=== PATIENT | male | born 1945 | race Caucasian/White ===

== ENCOUNTER 2016-07-13 13:51 | Emergency (ER) | payer MEDICARE ==
[2016-07-13] MEDS ORDERED: Sodium Chloride 0.9% 10 ML Syringe FLUSH PRN (14:28)
[2016-07-13] MEDS ORDERED: HYDROmorphone 0.5 MG/0.5 ML Syringe IVPUSH ONE (14:30)
[2016-07-13] MEDS ORDERED: Ondansetron 4 MG/2 ML SDV IVPUSH ONE (14:30)
--- NOTE | 2016-07-13 14:33 | EDM.PDOC ---
ED HPI GI/ABDOMINAL - General Chief Complaint: Abdominal Pain Stated Complaint: PAIN AND SOB Time Seen by Provider: 07/13/16 14:28 Source: Reports: Patient, Family, RN notes reviewed History Limitations: Reports: No limitations - History of Present Illness INITIAL COMMENTS - FREE TEXT/NARRATIVE: 71-year-old gentleman presents emergency department for a complaint of epigastric pain, he states had this pain for 2 days and has progressively gotten worse he had one episode of vomiting today pain is so intense that he does feel short of breath, has a known history of coronary artery disease with stents - Related Data Allergies/ADRs: Allergies Allergy/AdvReac Type Severity Reaction Status Date / Time No Known Allergies Allergy Verified 07/13/16 14:09 Home Meds: Home Meds Aspirin [Ecotrin] 81 mg PO DAILY 11/27/14 [History] Omeprazole 20 mg PO DAILY 11/27/14 [History] Simvastatin [Zocor] 20 mg PO BEDTIME 11/27/14 [History] Ticagrelor [Brilinta] 90 mg PO BID 10/24/15 [History] Past Medical History Cardiovascular History: Reports: CAD, High cholesterol, Stents Gastrointestinal History: Reports: Other (see below) Other Gastrointestinal History: hernia Musculoskeletal History: Reports: Fracture - Infectious Disease History Infectious Disease History: Reports: Chicken pox Other Infectious Disease History: unknown - Past Surgical History Cardiovascular Surgical History: Reports: Coronary artery stent Social & Family History - Tobacco Use Smoking Status *Q: Current Every Day Smoker Years of Tobacco use: 50 Packs/Tins Daily: 0.7 - Caffeine Use Caffeine Use: Reports: Coffee - Recreational Drug Use Recreational Drug Use: No ED ROS GENERAL - Review of Systems Review Of Systems: See Below Constitutional: Denies: diaphoresis HEENT: Reports: No symptoms Respiratory: Reports: shortness of breath. Denies: cough, sputum Cardiovascular: Reports: No symptoms GI/Abdominal: Reports: Abdominal pain, Nausea, Vomiting. Denies: Constipation, Diarrhea : Reports: no symptoms Musculoskeletal: Reports: no symptoms Skin: Reports: no symptoms Neurological: Reports: no symptoms ED EXAM, GI/ABD - Physical Exam Exam: See Below Text/Narrative:: General: male, moderate discomfort secondary to abdominal pain, alert and oriented x3 HEENT: head is atraumatic normocephalic, eyes pupils equal round reactive to light and accommodation sclera clear no conjunctivitis appreciated. Ears blocked by cerumen bilaterally. Nose no septal deviation, nares are clear, no blood present. Mouth mucosa is moist and pink no erythema or exudate noted in soft palate, tongue is midline uvula is midline, dentition is4. Neck: Supple no thyromegaly no tracheal deviation. Nodes: Cervical nodes subclavicular nodes nontender no palpable lymphadenopathy noted. Lungs: breath sounds are distant I don't appreciate any evident tissues noises CV: distant soundsRegular rate and rhythm S1 and S2 appreciated no murmurs rubs or gallops noted. Abdomen: Soft, tender to palpation epigastric region, no palpable masses or organomegaly appreciated, no distention no guarding bowel sounds are present, ]. Neuro: Cranial nerves II through XII grossly intact Skin: Warm and dry, intact Extremities: No lower extremity edema appreciated, Course - Vital Signs Last Recorded V/S: Last Vital Signs Temp 97.4 F 07/13/16 14:16 Pulse 98 07/13/16 17:32 Resp 16 07/13/16 17:32 BP 149/92 H 07/13/16 17:32 Pulse Ox 92 L 07/13/16 17:32 - Orders/Labs/Meds Orders: Active Orders 24 hr Category Date Time Status Cardiac Monitoring [RC] .As Directed Care 07/13/16 14:28 Active EKG Documentation Completion [RC] ASDIRECTED Care 07/13/16 14:29 Active Peripheral IV Care [RC] . DIRECTED Care 07/13/16 14:29 Active Abdomen Pelvis wo Cont [CT] Stat Exams 07/13/16 15:59 Taken Chest 1V Frontal [CR] Stat Exams 07/13/16 14:29 Taken Sodium Chloride 0.9% [Saline Flush] Med 07/13/16 14:28 Active 10 ml FLUSH ASDIRECTED PRN Peripheral IV Insertion Adult [OM.PC] Stat Oth 07/13/16 14:28 Ordered Saline Lock Insert [OM.PC] Stat Oth 07/13/16 14:28 Ordered EKG 12 Lead [EK] Stat Ther 07/13/16 14:29 Ordered Medication Orders Sodium Chloride (Saline Flush) 10 ml FLUSH ASDIRECTED PRN PRN Reason: Keep Vein Open Last Admin: 07/13/16 14:46 Dose: 10 ml Labs: Laboratory Tests 03/04/1907/13/16 07/13/16 Range/Units 14:39 14:39 14:39 WBC 10.3 (4.5-11.0) K/uL RBC 5.60 (4.30-5.90) M/uL Hgb 16.6 H (12.0-15.0) g/dL Hct 47.9 (40.0-54.0) % MCV 86 (80-98) fL MCH 30 (27-31) pg MCHC 35 (32-36) % Plt Count 235 (150-400) K/uL Neut % (Auto) 70 H (36-66) % Lymph % (Auto) 12 L (24-44) % Pershing % (Auto) 16 H (2-6) % Eos % (Auto) 1 L (2-4) % Baso % (Auto) 1 (0-1) % Sodium 134 L (140-148) mmol/L Potassium 4.6 (3.6-5.2) mmol/L Chloride 100 (100-108) mmol/L Carbon Dioxide 25 (21-32) mmol/L Anion Gap 13.6 (5.0-14.0) mmol/L BUN 22 H (7-18) mg/dL Creatinine 1.5 H (0.8-1.3) mg/dL Est Cr Clr Drug Dosing 37.50 mL/min Estimated GFR (MDRD) 46 L (>60) Glucose 95 (74-106) mg/dL Lactic Acid 1.5 (0.4-2.0) mmol/L Calcium 8.8 (8.5-10.1) mg/dL Total Bilirubin 0.5 (0.2-1.0) mg/dL AST 34 (15-37) U/L ALT 41 (12-78) U/L Alkaline Phosphatase 82 (46-116) U/L Troponin I < 0.017 (0.000-0.056) ng/mL Total Protein 7.8 (6.4-8.2) g/dL Albumin 3.7 (3.4-5.0) g/dL Globulin 4.1 H (2.3-3.5) g/dL Albumin/Globulin Ratio 0.9 L (1.2-2.2) Lipase 146 (73-393) U/L Urine Color Urine Appearance Urine pH (4.5-8.0) Ur Specific [place] (1.008-1.030) Urine Protein (NEGATIVE) mg/dL Urine Glucose (UA) (NEGATIVE) mg/dL Urine Ketones (NEGATIVE) mg/dL Urine Occult Blood (NEGATIVE) Urine Nitrite (NEGAITVE) Urine Bilirubin (NEGATIVE) Urine Urobilinogen (NORMAL) mg/dL Ur Leukocyte Esterase (NEGATIVE) Urine RBC (0-5) Urine WBC (0-5) Ur Epithelial Cells Amorphous Sediment Urine Bacteria Urine Mucus Urine Other 07/13/16 Range/Units 15:19 WBC (4.5-11.0) K/uL RBC (4.30-5.90) M/uL Hgb (12.0-15.0) g/dL Hct (40.0-54.0) % MCV (80-98) fL MCH (27-31) pg MCHC (32-36) % Plt Count (150-400) K/uL Neut % (Auto) (36-66) % Lymph % (Auto) (24-44) % Pershing % (Auto) (2-6) % Eos % (Auto) (2-4) % Baso % (Auto) (0-1) % Sodium (140-148) mmol/L Potassium (3.6-5.2) mmol/L Chloride (100-108) mmol/L Carbon Dioxide (21-32) mmol/L Anion Gap (5.0-14.0) mmol/L BUN (7-18) mg/dL Creatinine (0.8-1.3) mg/dL Est Cr Clr Drug Dosing mL/min Estimated GFR (MDRD) (>60) Glucose (74-106) mg/dL Lactic Acid (0.4-2.0) mmol/L Calcium (8.5-10.1) mg/dL Total Bilirubin (0.2-1.0) mg/dL AST (15-37) U/L ALT (12-78) U/L Alkaline Phosphatase (46-116) U/L Troponin I (0.000-0.056) ng/mL Total Protein (6.4-8.2) g/dL Albumin (3.4-5.0) g/dL Globulin (2.3-3.5) g/dL Albumin/Globulin Ratio (1.2-2.2) Lipase (73-393) U/L Urine Color Yellow Urine Appearance Slightly cloudy Urine pH 5.0 (4.5-8.0) Ur Specific [place] 1.025 (1.008-1.030) Urine Protein Negative (NEGATIVE) mg/dL Urine Glucose (UA) Normal (NEGATIVE) mg/dL Urine Ketones Negative (NEGATIVE) mg/dL Urine Occult Blood Negative (NEGATIVE) Urine Nitrite Negative (NEGAITVE) Urine Bilirubin Small (NEGATIVE) Urine Urobilinogen 1 (NORMAL) mg/dL Ur Leukocyte Esterase Negative (NEGATIVE) Urine RBC 0-5 (0-5) Urine WBC 0-5 (0-5) Ur Epithelial Cells Rare Amorphous Sediment Not seen Urine Bacteria Not seen Urine Mucus Moderate Urine Other Meds: Medications Generic Name Dose Route Start Last Admin Trade Name Freq PRN Reason Stop Dose Admin Sodium Chloride 10 ml 07/13/16 14:28 07/13/16 14:46 Saline Flush FLUSH 10 ml ASDIRECTED PRN Administration Keep Vein Open Discontinued Medications Generic Name Dose Route Start Last Admin Trade Name Freq PRN Reason Stop Dose Admin Al Hydroxide/Mg Hydroxide 15 0 ml 07/13/16 17:04 07/13/16 17:16 ml/ Lidocaine HCl 15 ml PO 07/13/16 17:05 15 ml ONETIME ONE Administration Hydromorphone HCl 0.5 mg 07/13/16 14:30 07/13/16 14:45 Dilaudid IVPUSH 07/13/16 14:31 0.5 mg ONETIME ONE Administration Ondansetron HCl 4 mg 07/13/16 14:30 07/13/16 14:43 Zofran IVPUSH 07/13/16 14:31 4 mg ONETIME ONE Administration Departure - Departure Time of Disposition: 17:42 Disposition: Home, Self-Care 01 Condition: good Clinical Impression: Epigastric pain Forms: ED Department Discharge Additional Instructions: increase your omeprazole from 20 mg once a day to 40 mg once a day, Please followup with your primary care provider in 3-5 days if not better, please call return to the emergency department with worsening of symptoms. - My Orders Last 24 Hours: My Active Orders 07/13/16 14:28 Cardiac Monitoring [RC] .As Directed Sodium Chloride 0.9% [Saline Flush] 10 ml FLUSH ASDIRECTED PRN Peripheral IV Insertion Adult [OM.PC] Stat Saline Lock Insert [OM.PC] Stat 07/13/16 14:29 EKG Documentation Completion [RC] ASDIRECTED Peripheral IV Care [RC] . DIRECTED Chest 1V Frontal [CR] Stat EKG 12 Lead [EK] Stat 07/13/16 15:59 Abdomen Pelvis wo Cont [CT] Stat - Assessment/Plan Last 24 Hours: My Active Orders 07/13/16 14:28 Cardiac Monitoring [RC] .As Directed Sodium Chloride 0.9% [Saline Flush] 10 ml FLUSH ASDIRECTED PRN Peripheral IV Insertion Adult [OM.PC] Stat Saline Lock Insert [OM.PC] Stat 07/13/16 14:29 EKG Documentation Completion [RC] ASDIRECTED Peripheral IV Care [RC] . DIRECTED Chest 1V Frontal [CR] Stat EKG 12 Lead [EK] Stat 07/13/16 15:59 Abdomen Pelvis wo Cont [CT] Stat Plan: Assessment Acuity = acute Site and laterality = epigastric pain Etiology = suspicious for exacerbation of gastroesophageal reflux disease Manifestations = none Location of injury = home Lab values = CBC unremarkable, sodium of 134 versus hyponatremia creatinine elevated at 1.5 consistent with chronic renal failure stage G. IIIB, troponin negative EKG demonstrates a right bundle branch block which is not new chest x- ray I did review films myself I cannot appreciate any acute process, the official read from radiology is pending Plan he became pain-free in the emergency department he was given a GI cocktail for comfort plan is to increase his omeprazole to 40 mg once a day for the next week or so to see if there's any improvement he is to follow up with primary care in 3-5 days for evaluation Patient was in agreement with the plan all questions were answered, they were instructed to return to the emergency department or call for worsening symptoms. This note was dictated using [employer] voice recognition software please call with any questions.
[2016-07-13] MEDS ORDERED: Alum Hydrox/Mag Hydrox/Simeth 15 ML, Lidocaine 2% 15 ML PO ONE ×2 (17:04)
[2016-07-13 17:33] VITALS: BP 149/92
--- NOTE | 2016-07-14 10:58 | CR ---
Heart size within normal limits. No focal consolidation. Faint nodular density left upper lobe perip herally and left lung base. Recommend noncontrast chest CT follow-up.
== END 2016-07-13 18:02 | disposition home or self-care (01) ==
LOC: JP.ED 13:51
DX: R10.13 Epigastric pain (principal); I25.10 Atherosclerotic heart disease of native coronary artery without angina pectoris; E78.00 Pure hypercholesterolemia, unspecified; Z95.5 Presence of coronary angioplasty implant and graft; F17.200 Nicotine dependence, unspecified, uncomplicated; Z79.82 Long term (current) use of aspirin; Z79.899 Other long term (current) drug therapy
CPT/HCPCS: 36415; 71010; 74176; 80053; 81001; 83605; 83690; 84484; 85025; 93005; A9270; J1170; J2405; J7050; 93010; 96374; 96375; 99284; 99285-25

== ENCOUNTER 2017-10-19 07:28 | Inpatient (IN) | payer MEDICARE ==
[~2017-10-19 07:28] MED LIST: Bupivacaine 0.5%/EPINEPHrine 1:200,000 50 ML MDV ONE; Dexamethasone 4 MG/ML SDV ONE; Glycopyrrolate 0.2 MG/ML 5 ML MDV ONE; Neostigmine Methylsulfate 1 MG/ML 5 ML Syringe ONE; Ondansetron 4 MG/2 ML SDV ONE; Propofol 200 MG/20 ML SDV ONE; Rocuronium 50 MG/5 ML Vial ONE; Succinylcholine 200 MG/10 ML MDV ONE; fentaNYL 250 MCG/5 ML SDV ONE
[2017-10-19] MEDS ORDERED: ceFAZolin 2 GM in Sodium Chloride 0.9% 50 ML IV ONE (08:00)
[2017-10-19] MEDS ORDERED: Albuterol/Ipratropium 3.0-0.5 MG/3 ML Neb Soln NEB ONE (08:00)
[2017-10-19] MEDS ORDERED: Ketamine 500 MG/5 ML MDV IV SCH (08:00)
[2017-10-19] MEDS ORDERED: Acetaminophen 500 MG Tab PO ONE (08:00)
[2017-10-19] MEDS ORDERED: ceFAZolin 2 GM in Premix Bag 1 BAG IV ONE (08:00)
[2017-10-19] MEDS: Dextrose 5%-Lactated Ringers 1,000 ML IV SCH ×3 (08:03→23:23)
[2017-10-19] MEDS ORDERED: Phenylephrine 1% 10 MG/ML SDV ONE (09:44)
[2017-10-19] MEDS ORDERED: Lidocaine 4% Top Soln LTA 4 ML SYRINGE ONE (09:48)
--- NOTE | 2017-10-19 10:10 | CR ---
CHEST: 2 view CLINICAL HISTORY:Preop COMPARISON:2017 FINDINGS: Heart and pulmonary vascularity are normal. No infiltrate effusion or pneumothorax is seen . Lungs are hyperaerated.. IMPRESSION: No acute cardiopulmonary process Hyperaeration
[2017-10-19] MEDS ORDERED: Ondansetron 4 MG/2 ML SDV IVPUSH PRN (11:31)
[2017-10-19] MEDS ORDERED: Albuterol/Ipratropium 3.0-0.5 MG/3 ML Neb Soln INH PRN (12:00)
[2017-10-19] MEDS: Albuterol/Ipratropium 3.0-0.5 MG/3 ML Neb Soln INH SCH ×2 (14:50→20:10)
[2017-10-19] MEDS: ceFAZolin 2 GM in Premix Bag 1 BAG IV SCH ×2 (15:49→23:31)
[2017-10-19] MEDS: Acetaminophen/HYDROcodone 325-5 MG Tab PO PRN ×2 (17:20→23:26)
[2017-10-19] MEDS: Ticagrelor 90 MG Tab PO SCH (20:10)
[2017-10-19] MEDS ORDERED: Tamsulosin 0.4 MG Cap.ER PO SCH (21:00)
[2017-10-20] MEDS: Acetaminophen/HYDROcodone 325-5 MG Tab PO PRN ×2 (04:30→10:36)
[2017-10-20 07:17] VITALS: BP 134/61
[2017-10-20] MEDS: Albuterol/Ipratropium 3.0-0.5 MG/3 ML Neb Soln INH SCH (07:29)
[2017-10-20] MEDS ORDERED: Pantoprazole 40 MG Tab.CR PO SCH (07:30)
[2017-10-20] MEDS: ceFAZolin 2 GM in Premix Bag 1 BAG IV SCH (08:14)
[2017-10-20] MEDS: Ticagrelor 90 MG Tab PO SCH (08:15)
--- NOTE | 2017-10-20 08:46 | DISCH ---
FINAL DIAGNOSES: 1. Incarcerated left inguinal hernia. 2. Large left hydrocele. 3. Left ilioinguinal and iliohypogastric nerves, at risk for scar entrapment. SECONDARY DIAGNOSES: 1. Hyperlipidemia. 2. History of coronary artery disease. 3. Gastroesophageal reflux disease. 4. Chronic obstructive pulmonary disease. OPERATIVE PROCEDURES: Done on 10/19/2017, left inguinal exploration with; 1. Repair of incarcerated left inguinal hernia with mesh. 2. Left hydrocelectomy. 3. Division of left ilioinguinal and iliohypogastric nerves. SUMMARY AND HOSPITAL COURSE: This is a 72-year-old male presenting with a very large left inguinal hernia. On the day of admission, the patient underwent a general anesthetic and repair of the hernia. A large amount of the scrotal mass turned out to be a hydrocele, did have incarcerated inguinal hernia as well which was repaired with mesh-plug technique. The ilioinguinal and iliohypogastric nerves passed directly over the area of the mesh repair and were therefore divided to minimize chance of postoperative neuropathic pain. The patient did have a chest x-ray done preoperatively, which showed hyperaeration consistent with his emphysema-dominant COPD, but otherwise was unremarkable. Postoperatively, he has done well with no respiratory problems noted. He will be sent home with [place] 5/325 1 or 2 tabs q.4 hours p.r.n. pain, #40. he can take ibuprofen 400 to 600 mg q.i.d. p.r.n. either in addition to or instead of the Ty Ty. We will send him home with a dose of milk of magnesia. He does have a TATY drain in place, which he will be instructed to empty 3 times a day. He will be following up with Dr. Caicedo at [facility] on 10/28/2017.
[2017-10-20] MEDS ORDERED: Ticagrelor 90 MG Tab PO SCH (09:00)
--- NOTE | 2017-10-20 10:13 | OR ---
DATE OF PROCEDURE: 10/19/2017 PREOPERATIVE DIAGNOSES: Incarcerated left inguinal hernia with associated large scrotal mass. POSTOPERATIVE DIAGNOSES: 1. Incarcerated left inguinal hernia. 2. Large left hydrocele. 3. Left ilioinguinal nerve and iliohypogastric nerves at risk for scar entrapment. OPERATIVE PROCEDURES: Left inguinal exploration with; 1. Repair of incarcerated left inguinal hernia with mesh, (54470). 2. Left hydrocelectomy, (28092). 3. Division of left ilioinguinal nerve, (39036). 4. Division of left iliohypogastric nerve, (54478). ANESTHESIA: General. ASSISTANTS: 1. Guillermina Hernandez PA-C. 2. VICENTE Jimenez. INDICATION FOR PROCEDURE: This is a 72-year-old presenting with a large incarcerated left inguinal hernia with in it being a quite large scrotal mass associated with this. The plan is to proceed with inguinal exploration with repair of the hernia and reduction of the contents as needed. The patient may have quite a bit in the way of viscera put back into the abdomen. Given this, a general anesthetic will be planned. Potential risks including bleeding, infection, injury to underlying viscera, problems with the hernia recurring or the mesh becoming infected were all reviewed along with the possibility of cardiopulmonary, septic, or hemorrhagic complications leading to , and the patient wishes to proceed. DETAILS OF PROCEDURE: The patient was taken to the operating room and placed in a supine position. After general endotracheal anesthesia was induced, the abdomen and groin areas were prepped and draped. A standard left inguinal incision was made and carried down through the skin and subcutaneous tissue, and through the external oblique aponeurosis in line with the external ring. Sub aponeurosis flaps were then raised superiorly and inferiorly, and the cord structures were mobilized upward. This allowed dissection down toward the area of the large scrotal mass. This was predominantly a hydrocele, and this was then sequentially freed up and excised, except for the portion of the sac more or less attached to the testicle. The blood supply and the testicle were otherwise intact at the completion of dissection. The free edge of the hydrocele sac was then suture ligated with a running locked 3-0 Vicryl stitch. The patient was also noted to have some incarcerated fatty-type tissue within what was otherwise a direct inguinal hernia. The transversalis fascia overlying this was incised and this then allowed reduction of the hernia. A large mesh plug was then selected and placed into the defect and affixed to the Jayesh ligament inferiorly with titanium tacking screws, and then to the underside of the conjoined tendon medially, superiorly, and laterally with horizontal mattress sutures of 0 Vicryl stitch. At that point, the flat portion of mesh system was placed around the cord structures. Upon placing this, it became evident that the mesh will be overlying both the left ilioinguinal and iliohypogastric nerves, and these were therefore divided to limit the possibility of postoperative neuropathic pain. The mesh was then affixed there with some 3-0 Vicryl stitch and the cord structures were placed overlying this plane. The external oblique aponeurosis was then approximated with a 3-0 Vicryl stitch as was the Sean's fascia, and the skin closed with alden. The area was anesthetized with 0.5% Marcaine. The patient was taken to the recovery room in a satisfactory condition. One additional item in this case was a 7-[place] Marcell-Dimas drain was placed lateral to the main incision and taken down into the scrotum to prevent postoperative fluid collection in that area. The drain was fixed to the skin with some 3-0 Vicryl stitch. The patient was taken to the recovery room in satisfactory condition. Physician computer lab assistant, Guillermina Hernandez, played an essential role in assisting in this case, helping to position the patient, retract structures as needed, as well as suturing and cutting sutures when indicated. Her presence improved patient safety and decreased the operative time. Ronaldo Caicedo MD Job #: [id number]
== END 2017-10-20 10:45 | disposition home or self-care (01) | DRG 352 ==
LOC: JP.MS 07:28 → JP.SDS 07:29 → JP.2SS 10:30 → EDSTATUS 11:15
PROVIDERS: ADMIT Surgery; ATTEND Surgery
PROC: 0YU60JZ Supplement Left Inguinal Region with Synthetic Substitute, Open Approach (ICD-10-PCS; principal; 2017-10-19)
PROC: 0VB70ZZ Excision of Left Tunica Vaginalis, Open Approach (ICD-10-PCS; 2017-10-19)
PROC: 018B0ZZ Division of Lumbar Nerve, Open Approach (ICD-10-PCS; 2017-10-19)
PROC: 018B0ZZ Division of Lumbar Nerve, Open Approach (ICD-10-PCS; 2017-10-19)
PROC: 0Y9600Z Drainage of Left Inguinal Region with Drainage Device, Open Approach (ICD-10-PCS; 2017-10-19)
PROC: 3E0M05Z Introduction of Adhesion Barrier into Peritoneal Cavity, Open Approach (ICD-10-PCS; 2017-10-19)
DX: K40.30 Unilateral inguinal hernia, with obstruction, without gangrene, not specified as recurrent (principal); N43.2 Other hydrocele; G57.82 Other specified mononeuropathies of left lower limb; F17.210 Nicotine dependence, cigarettes, uncomplicated; K21.9 Gastro-esophageal reflux disease without esophagitis; E78.5 Hyperlipidemia, unspecified; I25.10 Atherosclerotic heart disease of native coronary artery without angina pectoris; R20.0 Anesthesia of skin; Z79.82 Long term (current) use of aspirin; J44.9 Chronic obstructive pulmonary disease, unspecified
CPT/HCPCS: 36415; 51798; 71046; 71046-26; 80053; 83880; 85027; 86803; 87350; 87449; 94640; 94762; A9270-GY; C1781; J0330; J0690; J1100; J2370; J2405; J2704; J2710; J3010; J7042; J7050; J7620

== ENCOUNTER 2017-10-25 09:17 | Emergency (ER) | payer MEDICARE ==
[2017-10-25 09:31] VITALS: BP 172/75
--- NOTE | 2017-10-25 09:55 | EDM.PDOC ---
ED HPI GENERAL MEDICAL PROBLEM - General Chief Complaint: Abdominal Pain Stated Complaint: PAIN/ISSUES WITH SURGICAL SITE Time Seen by Provider: 10/25/17 09:40 Source of Information: Reports: Patient, Family History Limitations: Reports: No Limitations - History of Present Illness INITIAL COMMENTS - FREE TEXT/NARRATIVE: 72-year-old male who underwent a left hernia repair 5 days ago still has his TATY drain in and was doing well but over the past 12 hours has developed increased swelling and discomfort. No fevers or chills. No nausea or vomiting. Onset: Unknown/Unsure Location: Reports: Abdomen, Other (Groin, scrotum) Severity: Moderate Associated Symptoms: Denies: Fever/Chills, Loss of Appetite, Malaise, Nausea/ Vomiting, Shortness of Breath, Weakness Left Lower Pelvic Pain Score (Numeric/FACES): 10 - Related Data Allergies Allergy/AdvReac Type Severity Reaction Status Date / Time No Known Allergies Allergy Verified 10/25/17 09:46 Home Meds: Home Meds Aspirin [Ecotrin] 81 mg PO DAILY 11/27/14 [History] Omeprazole 40 mg PO DAILY 11/27/14 [History] Simvastatin [Zocor] 20 mg PO BEDTIME 11/27/14 [History] Ticagrelor [Brilinta] 90 mg PO BID 10/24/15 [History] Tamsulosin HCl [Flomax] 0.4 mg PO DAILY 10/15/17 [History] Acetaminophen/HYDROcodone [[place] 325-5 MG] 1 - 2 tab PO Q4H PRN #40 tab [Rx] Ibuprofen [Motrin] 400 - 600 mg PO QID PRN 30 Days tab 10/20/17 [Rx] Magnesium Hydroxide [Milk of Magnesia] 15 ml PO DAILY PRN #2 ml 10/20/17 [Rx] Past Medical History HEENT History: Reports: Impaired Vision Other HEENT History: wears glasses Cardiovascular History: Reports: CAD, High Cholesterol, SOB on Exertion, Stents Respiratory History: Reports: COPD, SOB Gastrointestinal History: Reports: GERD, Other (See Below) Other Gastrointestinal History: inguinal hernia Genitourinary History: Reports: Prostate Disorder Musculoskeletal History: Reports: Arthritis, Fracture - Infectious Disease History Infectious Disease History: Reports: Chicken Pox Other Infectious Disease History: unknown - Past Surgical History HEENT Surgical History: Reports: None Cardiovascular Surgical History: Reports: Coronary Artery Stent Respiratory Surgical History: Reports: None GI Surgical History: Reports: Hernia, Inguinal Male Surgical History: Reports: None Musculoskeletal Surgical History: Reports: None Dermatological Surgical History: Reports: None Social & Family History - Family History Cardiac: Reports: [place] GI: Reports: Other (See Below) Other GI Family History: mother had stomach tumor-unknown if cancerous Musculoskeletal: Reports: Arthritis - Caffeine Use Caffeine Use: Reports: Coffee ED ROS GENERAL - Review of Systems Review Of Systems: See Below Constitutional: Denies: Fever, Chills Respiratory: Denies: Shortness of Breath GI/Abdominal: Reports: Abdominal Pain. Denies: Diarrhea, Nausea, Vomiting : Reports: Pain (Discomfort in the left scrotum with swelling). Denies: Dysuria Skin: Reports: Bruising (Some bruising around the surgical site especially laterally) ED EXAM, GI/ABD - Physical Exam Exam: See Below Exam Limited By: No Limitations General Appearance: Alert, No Apparent Distress (Looks uncomfortable but not distressed) Eyes: Bilateral: Normal Appearance Respiratory/Chest: No Respiratory Distress GI/Abdominal Exam: Normal Bowel Sounds, Other (Patient has dressings over the lower abdomen with a TATY into the surgical site. There is no distention and bowel sounds are present. The TATY drain has clear serosanguineous fluid as expected.) (Male) Exam: Other (There is fullness, firmness and tenderness in the left inguinal area into the left scrotum) Course - Vital Signs Last Recorded V/S: Last Vital Signs Temp 95.8 F 10/25/17 09:37 Pulse 103 H 10/25/17 09:37 Resp 18 10/25/17 09:37 BP 172/75 H 10/25/17 09:37 Pulse Ox 96 10/25/17 09:37 - Orders/Labs/Meds Orders: Active Orders 24 hr Category Date Time Status Abdomen Pelvis wo Cont [CT] Stat Exams 10/25/17 09:44 Taken - Re-Assessments/Exams Free Text/Narrative Re-Assessment/Exam: 10/25/17 09:55 After discussing his case with surgery, a CT of the abdomen and pelvis without contrast was obtained to assess a possible reoccurrence of the hernia. 10/25/17 11:04 CT scan shows relatively normal postoperative changes, patient is fairly comfortable unless the area is palpated. He had a bowel movement this morning and he is passing urine normally and is comfortable with waiting until tomorrow to get a postsurgical check. I called the surgical department, Guillermina Hernandez, and informed the patient to return at 9:30 AM for a surgical postoperative check. Departure - Departure Time of Disposition: 11:27 Disposition: Home, Self-Care 01 Condition: Good Clinical Impression: Inguinal hernia Qualifiers: Obstruction and gangrene presence: without obstruction or gangrene Laterality: unilateral Recurrence: non-recurrent Qualified Code(s): K40.90 - Unilateral inguinal hernia, without obstruction or gangrene, not specified as recurrent - Discharge Information Instructions: Inguinal Hernia, Adult, [id number] Referrals: Casey Rajput MD [Primary Care Provider] - Forms: ED Department Discharge Care Plan Goals: Continue your current medications, and return to the clinic tomorrow morning at 9:30 to have a surgical recheck. Return to ER today or tonight if worsening such as fever or intractable pain, nausea vomiting or other concerns. - My Orders Last 24 Hours: My Active Orders 10/25/17 09:44 Abdomen Pelvis wo Cont [CT] Stat - Assessment/Plan Last 24 Hours: My Active Orders 10/25/17 09:44 Abdomen Pelvis wo Cont [CT] Stat
== END 2017-10-25 11:27 | disposition home or self-care (01) ==
LOC: JP.ED 09:17
DX: K40.90 Unilateral inguinal hernia, without obstruction or gangrene, not specified as recurrent (principal); E78.00 Pure hypercholesterolemia, unspecified; Z79.82 Long term (current) use of aspirin; Z79.899 Other long term (current) drug therapy
CPT/HCPCS: 74176; 99284-25

== ENCOUNTER 2019-01-16 18:08 | Emergency (ER) | payer MEDICAID, MEDICARE ==
--- NOTE | 2019-01-16 18:52 | EDM.PDOC ---
ED HPI GENERAL MEDICAL PROBLEM - General Chief Complaint: Respiratory Problem Stated Complaint: SOB, CHEST PAIN, ABD PAIN Time Seen by Provider: 01/16/19 18:55 Source of Information: Reports: Patient, Family, Old Records, RN History Limitations: Reports: Other (patient is a poor historian) - History of Present Illness INITIAL COMMENTS - FREE TEXT/NARRATIVE: 74 yo male here with multiple vague complaints. Lives with a son that he apparently has been complaining to and the son calleld the daughter who then brought him here to the ER. Lives with the son who does not drive. Dr. Rajput is his primary and he has not seen him for a few months. Complains of his breathing being a little worse than normal, especially with exertion. Has intermittent fleeting chest pains all across his chest. Has L sided abdominal pains. Normal bowel movements. No fever. Reportedly has an elevated PSA and a Cologuard test is pending. Not sleeping well. Onset: Gradual Duration: Week(s):, Chronic, Waxing/Waning Location: Reports: Chest, Abdomen Quality: Reports: Dull Severity: Mild Improves with: Reports: Other (unknown) Worsens with: Reports: Other (? time) Associated Symptoms: Reports: Chest Pain (fleeting, no pain now), Shortness of Breath (chronic, worse with exertion. ). Denies: Confusion, Cough, Diaphoresis , Fever/Chills, Headaches, Loss of Appetite, Malaise, Nausea/Vomiting, Rash, Seizure, Syncope, Weakness Treatments [employer]: Reports: Other (see below) (none) Left Lower Abdominal Pain Score (Numeric/FACES): 7 - Related Data Allergies Allergy/AdvReac Type Severity Reaction Status Date / Time No Known Allergies Allergy Verified 01/16/19 18:43 Home Meds: Home Meds Aspirin [Ecotrin] 81 mg PO DAILY 11/27/14 [History] Omeprazole 40 mg PO DAILY 11/27/14 [History] Simvastatin [Zocor] 20 mg PO BEDTIME 11/27/14 [History] Ticagrelor [Brilinta] 90 mg PO BID 10/24/15 [History] Past Medical History HEENT History: Reports: Impaired Vision Other HEENT History: wears glasses Cardiovascular History: Reports: CAD, High Cholesterol, SOB on Exertion, Stents Respiratory History: Reports: COPD, SOB Gastrointestinal History: Reports: GERD, Other (See Below) Other Gastrointestinal History: inguinal hernia Genitourinary History: Reports: Prostate Disorder Musculoskeletal History: Reports: Arthritis, Fracture - Infectious Disease History Infectious Disease History: Reports: Chicken Pox Other Infectious Disease History: unknown - Past Surgical History HEENT Surgical History: Reports: None Cardiovascular Surgical History: Reports: Coronary Artery Stent GI Surgical History: Reports: Hernia, Inguinal Dermatological Surgical History: Reports: None Social & Family History - Family History Cardiac: Reports: [place] GI: Reports: Other (See Below) Other GI Family History: mother had stomach tumor-unknown if cancerous Musculoskeletal: Reports: Arthritis - Caffeine Use Caffeine Use: Reports: Coffee ED ROS GENERAL - Review of Systems Review Of Systems: See Below Constitutional: Reports: Weight Loss. Denies: Fever HEENT: Reports: No Symptoms Respiratory: Reports: Shortness of Breath (chronic, has known COPD). Denies: Wheezing, Pleuritic Chest Pain, Cough, Sputum, Hemoptysis Cardiovascular: Reports: Chest Pain (intermittent, fleeting), Dyspnea on Exertion. Denies: Orthopnea Endocrine: Reports: No Symptoms GI/Abdominal: Reports: Abdominal Pain (L sided, several days duration. ). Denies: Constipation, Diarrhea, Decreased Appetite, Distension, Flatus, Hematemesis, Hematochezia, Melena, Vomiting : Reports: No Symptoms Musculoskeletal: Reports: No Symptoms Skin: Reports: No Symptoms Neurological: Reports: No Symptoms Psychiatric: Reports: Depression (cries often) ED EXAM, GENERAL - Physical Exam Exam: See Below Exam Limited By: No Limitations General Appearance: Alert, WD/WN, No Apparent Distress, Thin Eye Exam: Bilateral Eye: Normal Inspection Ears: Normal External Exam, Normal Canal, Hearing Grossly Normal Ear Exam: Bilateral Ear: Auricle Normal, Canal Normal Nose: Normal Inspection, Normal Mucosa, No Blood Throat/Mouth: Normal Inspection, Normal Lips, Normal Oropharynx, Normal Voice, No Airway Compromise Head: Atraumatic, Normocephalic Neck: Normal Inspection Respiratory/Chest: No Respiratory Distress, Lungs Clear, No Accessory Muscle Use , Decreased Breath Sounds Cardiovascular: Regular Rate, Rhythm, No Edema GI/Abdominal: Normal Bowel Sounds, Soft, Non-Tender, No Distention Back Exam: Normal Inspection. No: CVA Tenderness (R), CVA Tenderness (L) Extremities: Normal Inspection, Normal Range of Motion, Non-Tender, No Pedal Edema Neurological: Alert, Oriented, CN II-XII Intact, Normal Cognition, No Motor/ Sensory Deficits Psychiatric: Normal Affect, Normal Mood Skin Exam: Warm, Dry, Intact, Normal Color, No Rash EKG INTERPRETATION EKG Date: 01/16/19 Time: 18:25 Rhythm: Other (atrial paced) Rate (Beats/Min): 101 [place]: Normal P-Wave: Present QRS: RBBB ST-T: Normal QT: Normal Comparison: No Change Course - Vital Signs Last Recorded V/S: Last Vital Signs Temp 37.0 C 01/16/19 18:44 Pulse 100 01/16/19 19:36 Resp 21 H 01/16/19 19:36 BP 156/102 H 01/16/19 19:36 Pulse Ox 94 L 01/16/19 19:36 - Orders/Labs/Meds Orders: Active Orders 24 hr Category Date Time Status Cardiac Monitoring [RC] .As Directed Care 01/16/19 18:11 Active EKG Documentation Completion [RC] ASDIRECTED Care 01/16/19 18:10 Active RT Aerosol Therapy [RC] ASDIRECTED Care 01/16/19 20:36 Active EKG 12 Lead [EK] Routine Ther 01/16/19 18:10 Ordered Labs: Laboratory Tests 01/16/19 01/16/19 01/16/19 Range/Units 19:15 19:15 19:22 WBC 8.4 (4.5-11.0) K/uL RBC 5.15 (4.30-5.90) M/uL Hgb 14.0 (12.0-15.0) g/dL Hct 43.0 (40.0-54.0) % MCV 84 (80-98) fL MCH 27 (27-31) pg MCHC 33 (32-36) % Plt Count 287 (150-400) K/uL Sodium 135 L (140-148) mmol/L Potassium 4.3 (3.6-5.2) mmol/L Chloride 100 (100-108) mmol/L Carbon Dioxide 27 (21-32) mmol/L Anion Gap 12.3 (5.0-14.0) mmol/L BUN 16 (7-18) mg/dL Creatinine 1.1 (0.8-1.3) mg/dL Est Cr Clr Drug Dosing 45.25 mL/min Estimated GFR (MDRD) > 60 (>60) Glucose 81 (74-106) mg/dL Calcium 9.0 (8.5-10.1) mg/dL Total Bilirubin 0.4 (0.2-1.0) mg/dL AST 19 (15-37) U/L ALT 18 (12-78) U/L Alkaline Phosphatase 121 H (46-116) U/L Troponin I < 0.017 (0.000-0.056) ng/mL Total Protein 7.3 (6.4-8.2) g/dL Albumin 3.1 L (3.4-5.0) g/dL Globulin 4.2 H (2.3-3.5) g/dL Albumin/Globulin Ratio 0.7 L (1.2-2.2) Urine Color Yellow (YELLOW) Urine Appearance Clear (CLEAR) Urine pH 5.5 (5.0-8.0) Ur Specific [place] 1.025 (1.008-1.030) Urine Protein Trace H (NEGATIVE) mg/dL Urine Glucose (UA) Negative (NEGATIVE) mg/dL Urine Ketones Negative (NEGATIVE) mg/dL Urine Occult Blood Trace-intact H (NEGATIVE) Urine Nitrite Negative (NEGATIVE) Urine Bilirubin Small H (NEGATIVE) Urine Urobilinogen 1.0 (0.2-1.0) EU/dL Ur Leukocyte Esterase Negative (NEGATIVE) Urine RBC 0-5 (0-5) Urine WBC 0-5 (0-5) Ur Epithelial Cells Rare Amorphous Sediment Not seen Urine Bacteria Few Urine Mucus Moderate Meds: Medications Discontinued Medications Generic Name Dose Route Start Last Admin Trade Name Freq PRN Reason Stop Dose Admin Albuterol/Ipratropium 3 ml 01/16/19 20:36 01/16/19 20:42 Duoneb 3.0-0.5 Mg/3 Ml NEB 01/16/19 20:37 3 ml ONETIME ONE Administration Prednisone 10 mg 01/16/19 21:01 01/16/19 21:08 Prednisone PO 01/16/19 21:02 10 mg ONETIME ONE Administration - Radiology Interpretation Free Text/Narrative:: Flat/upright abdom X-rays-neg - Re-Assessments/Exams Free Text/Narrative Re-Assessment/Exam: 01/16/19 21:02 Patient reports slight subjective improvement after the Duoneb, lungs reveal some faint wheezing after the neb that was not appreciated before the neb. Departure - Departure Time of Disposition: 21:40 Disposition: Home, Self-Care 01 Condition: Fair Clinical Impression: COPD exacerbation, Anxiety - Discharge Information *PRESCRIPTION DRUG MONITORING PROGRAM REVIEWED*: No *COPY OF PRESCRIPTION DRUG MONITORING REPORT IN PATIENT SHERIDAN: No Instructions: Chronic Obstructive Pulmonary Disease, [id number] Referrals: Casey Rajput MD [Primary Care Provider] - Forms: ED Department Discharge Additional Instructions: Use the prednisone and albuterol inhaler as directed. Continue your other medicines as before. Recheck with Dr. Rajput later in the week. Return here if a lot worse. - My Orders Last 24 Hours: My Active Orders 01/16/19 18:10 EKG Documentation Completion [RC] ASDIRECTED EKG 12 Lead [EK] Routine 01/16/19 18:11 Cardiac Monitoring [RC] .As Directed 01/16/19 20:36 RT Aerosol Therapy [RC] ASDIRECTED - Assessment/Plan Last 24 Hours: My Active Orders 01/16/19 18:10 EKG Documentation Completion [RC] ASDIRECTED EKG 12 Lead [EK] Routine 01/16/19 18:11 Cardiac Monitoring [RC] .As Directed 01/16/19 20:36 RT Aerosol Therapy [RC] ASDIRECTED
[2019-01-16 19:37] VITALS: BP 156/102; PULSE 100
--- NOTE | 2019-01-16 19:45 | CRLCR ---
INDICATION: Left-sided abdominal pain. TECHNIQUE: Single-view abdomen and pelvis. FINDINGS: Postsurgical changes left pelvis with surgical coils. Moderate lucency along the lateral abdomen bilaterally extending along the liver and spleen. I cannot exclude the possibility of free intraperitoneal air. Suggest obtaining in upright view of the abdomen or if clinically desired CT. Moderate amounts of stool in the colon. Gas distention of the colon and small bowel within normal limits. Findings were called to the referring provider at 7:42 p.m. on 01/16/2019. 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 Remainder negative. Dictated by Brittany Baxter MD @ Jan 16 2019 7:44PM Signed by Dr. Brittany Baxter @ Jan 16 2019 7:45PM
[2019-01-16] MEDS ORDERED: Albuterol/Ipratropium 3.0-0.5 MG/3 ML Neb Soln NEB ONE (20:36)
[2019-01-16] MEDS ORDERED: predniSONE 10 MG Tab PO ONE (21:01)
--- NOTE | 2019-01-16 21:26 | CRLCR ---
INDICATION: Abnormality on the previous film earlier tonight possibly suggesting free intraperitoneal air. TECHNIQUE: Single upright view of the abdomen and pelvis. COMPARISON: Films earlier today. FINDINGS: The lucency seen along the lateral aspect of the abdomen bilaterally is less apparent. There is no free intraperitoneal air beneath the hemidiaphragms. The lucency along the lateral aspect of the abdomen is of uncertain etiology. If there is clinical concern for an acute abdomen, consider CT. Bowel gas pattern otherwise unremarkable with mild gas distention of the stomach, small bowel, and colon. Left-sided coronary artery stent. Remainder negative. Dictated by Toney Hamlin MD @ Jan 16 2019 9:21PM Signed by Dr. Toney Hamlin @ Jan 16 2019 9:24PM
== END 2019-01-16 22:16 | disposition home or self-care (01) ==
LOC: JP.ED 18:08
DX: J44.9 Chronic obstructive pulmonary disease, unspecified (principal); F41.9 Anxiety disorder, unspecified; I25.10 Atherosclerotic heart disease of native coronary artery without angina pectoris; E78.00 Pure hypercholesterolemia, unspecified; K21.9 Gastro-esophageal reflux disease without esophagitis; M19.90 Unspecified osteoarthritis, unspecified site; Z79.82 Long term (current) use of aspirin; Z79.899 Other long term (current) drug therapy
CPT/HCPCS: 36415; 74018; 80053; 81001; 84484; 85027; 93005; 94640; 99285; A9270; J7620-GY

== ENCOUNTER 2019-01-31 14:37 | Emergency (ER) | payer MEDICAID, MEDICARE ==
[2019-01-31] MEDS ORDERED: Albuterol/Ipratropium 3.0-0.5 MG/3 ML Neb Soln NEB ONE (14:52)
[2019-01-31] MEDS ORDERED: methylPREDNISolone Sodium Succinate 125 MG/2 ML SDV IVPUSH ONE (14:52)
[2019-01-31] MEDS ORDERED: Sodium Chloride 0.9% 10 ML Syringe FLUSH PRN (14:53)
--- NOTE | 2019-01-31 15:01 | EDM.PDOC ---
ED HPI GENERAL MEDICAL PROBLEM - General Chief Complaint: General Stated Complaint: SOB,ABDOMINAL PAIN Time Seen by Provider: 01/31/19 14:45 Source of Information: Reports: Patient, Family, Old Records, RN History Limitations: Reports: No Limitations - History of Present Illness INITIAL COMMENTS - FREE TEXT/NARRATIVE: 74 yo male here with SOB. Has known COPD. Was here a couple weeks ago and got prednisone and apparently did well while on this. He followed up in the clinic toward the end of his prednisone and it was felt that he was doing well and didn 't need any other tx. He does say he has not smoked for a week. No fever. No pain. Says he wants a nebulizer as the albuterol MDI "doesn't work for him". Last used the MDI this morning. On demonstration for me he actually exhaled into the inhaler as he discharged it while it was fully in his mouth with his lips tightly wrapped around the device. Onset: Gradual Duration: Day(s):, Getting Worse Location: Reports: Chest Quality: Reports: Other (no pain) Severity: Moderate Improves with: Reports: Rest Worsens with: Reports: Other (exertion) Associated Symptoms: Reports: Cough, Shortness of Breath. Denies: Chest Pain, Diaphoresis, Fever/Chills Treatments [employer] TECH: Reports: Other (see below) (none) - Related Data Allergies Allergy/AdvReac Type Severity Reaction Status Date / Time No Known Allergies Allergy Verified 01/16/19 18:43 Home Meds: Home Meds Aspirin [Ecotrin] 81 mg PO DAILY 11/27/14 [History] Omeprazole 40 mg PO DAILY 11/27/14 [History] Simvastatin [Zocor] 20 mg PO BEDTIME 11/27/14 [History] Ticagrelor [Brilinta] 90 mg PO BID 10/24/15 [History] Past Medical History HEENT History: Reports: Impaired Vision Other HEENT History: wears glasses Cardiovascular History: Reports: CAD, High Cholesterol, SOB on Exertion, Stents Respiratory History: Reports: COPD, SOB Gastrointestinal History: Reports: GERD, Other (See Below) Other Gastrointestinal History: inguinal hernia Genitourinary History: Reports: Prostate Disorder Musculoskeletal History: Reports: Arthritis, Fracture - Infectious Disease History Infectious Disease History: Reports: Chicken Pox Other Infectious Disease History: unknown - Past Surgical History HEENT Surgical History: Reports: None Cardiovascular Surgical History: Reports: Coronary Artery Stent GI Surgical History: Reports: Hernia, Inguinal Dermatological Surgical History: Reports: None Social & Family History - Family History Cardiac: Reports: [place] GI: Reports: Other (See Below) Other GI Family History: mother had stomach tumor-unknown if cancerous Musculoskeletal: Reports: Arthritis - Caffeine Use Caffeine Use: Reports: Coffee ED ROS GENERAL - Review of Systems Review Of Systems: See Below Constitutional: Reports: No Symptoms HEENT: Reports: No Symptoms Respiratory: Reports: Shortness of Breath, Cough. Denies: Wheezing, Pleuritic Chest Pain, Sputum, Hemoptysis Cardiovascular: Reports: No Symptoms Endocrine: Reports: No Symptoms GI/Abdominal: Reports: No Symptoms : Reports: No Symptoms Musculoskeletal: Reports: No Symptoms Skin: Reports: No Symptoms Neurological: Reports: No Symptoms ED EXAM, GENERAL - Physical Exam Exam: See Below Exam Limited By: No Limitations General Appearance: Alert, WD/WN, Mild Distress Eye Exam: Bilateral Eye: Normal Inspection Ears: Normal External Exam, Normal Canal, Hearing Grossly Normal Ear Exam: Bilateral Ear: Auricle Normal, Canal Normal Nose: Normal Inspection, No Blood Throat/Mouth: Normal Inspection, Normal Lips, Normal Oropharynx, Normal Voice, No Airway Compromise Head: Atraumatic, Normocephalic Neck: Normal Inspection Respiratory/Chest: No Respiratory Distress, Decreased Breath Sounds, Accessory Muscle Use (with some tachypnea) Cardiovascular: Regular Rate, Rhythm, No Edema Back Exam: Normal Inspection Extremities: Normal Inspection, Normal Range of Motion, Non-Tender, No Pedal Edema Neurological: Alert, Oriented, CN II-XII Intact, Normal Cognition, No Motor/ Sensory Deficits Psychiatric: Normal Affect, Normal Mood Skin Exam: Warm, Dry, Intact, Normal Color, No Rash Course - Vital Signs Text/Narrative:: accepted by [facility] @ [facility], Dr. Chaparro. Last Recorded V/S: Last Vital Signs Temp 36.9 C 01/31/19 15:05 Pulse 136 H 01/31/19 16:05 Resp 18 01/31/19 16:05 BP 138/55 L 01/31/19 16:05 Pulse Ox 91 L 01/31/19 16:05 - Orders/Labs/Meds Orders: Active Orders 24 hr Category Date Time Status RT Aerosol Therapy [RC] ASDIRECTED Care 01/31/19 14:52 Active RT Aerosol Therapy [RC] ASDIRECTED Care 01/31/19 15:26 Active UA W/MICROSCOPIC [URIN] Stat Lab 01/31/19 15:46 Ordered Sodium Chloride 0.9% [Saline Flush] Med 01/31/19 14:53 Active 10 ml FLUSH ASDIRECTED PRN Saline Lock Insert [OM.PC] Routine Oth 01/31/19 14:53 Ordered Medication Orders Sodium Chloride (Saline Flush) 10 ml FLUSH ASDIRECTED PRN PRN Reason: Keep Vein Open Last Admin: 01/31/19 15:01 Dose: 10 ml Labs: Laboratory Tests 01/31/19 01/31/19 Range/Units 15:02 15:02 WBC 20.9 H (4.5-11.0) K/uL RBC 4.74 (4.30-5.90) M/uL Hgb 12.7 (12.0-15.0) g/dL Hct 39.0 L (40.0-54.0) % MCV 82 (80-98) fL MCH 27 (27-31) pg MCHC 33 (32-36) % Plt Count 505 H (150-400) K/uL Sodium 132 L (140-148) mmol/L Potassium 4.3 (3.6-5.2) mmol/L Chloride 98 L (100-108) mmol/L Carbon Dioxide 25 (21-32) mmol/L Anion Gap 13.3 (5.0-14.0) mmol/L BUN 18 (7-18) mg/dL Creatinine 1.0 (0.8-1.3) mg/dL Est Cr Clr Drug Dosing 49.23 mL/min Estimated GFR (MDRD) > 60 (>60) Glucose 109 H (74-106) mg/dL Calcium 9.3 (8.5-10.1) mg/dL Meds: Medications Generic Name Dose Route Start Last Admin Trade Name Freq PRN Reason Stop Dose Admin Sodium Chloride 10 ml 01/31/19 14:53 01/31/19 15:01 Saline Flush FLUSH 10 ml ASDIRECTED PRN Administration Keep Vein Open Discontinued Medications Generic Name Dose Route Start Last Admin Trade Name Freq PRN Reason Stop Dose Admin Albuterol 2.5 mg 01/31/19 15:25 01/31/19 15:35 Proventil Neb Soln NEB 01/31/19 15:26 2.5 mg ONETIME ONE Administration Albuterol/Ipratropium 3 ml 01/31/19 14:52 01/31/19 15:00 Duoneb 3.0-0.5 Mg/3 Ml NEB 01/31/19 14:53 3 ml ONETIME ONE Administration Azithromycin 500 mg 01/31/19 15:45 01/31/19 16:36 Zithromax PO 01/31/19 15:46 500 mg NOW STA Administration Hydromorphone HCl 0.5 mg 01/31/19 16:32 01/31/19 16:38 Dilaudid IVPUSH 01/31/19 16:33 0.5 mg ONETIME ONE Administration Ceftriaxone Sodium 1 gm/ 50 mls @ 100 mls/hr 01/31/19 15:46 01/31/19 16:36 Sodium Chloride IV 01/31/19 16:15 100 mls/hr ONETIME ONE Administration Methylprednisolone Sodium Succinate 125 mg 01/31/19 14:52 01/31/19 15:01 Solu-Medrol IVPUSH 01/31/19 14:53 125 mg ONETIME ONE Administration - Radiology Interpretation Free Text/Narrative:: CXR-L pneumonia Departure - Departure Time of Disposition: 17:00 Disposition: DC/Tfer to Acute Hospital 02 Condition: Poor Clinical Impression: Pneumonia Qualifiers: Pneumonia type: due to unspecified organism Laterality: left Lung location: upper lobe of lung Qualified Code(s): J18.1 - Lobar pneumonia, unspecified organism COPD (chronic obstructive pulmonary disease) Qualifiers: COPD type: COPD with acute lower respiratory infection Qualified Code(s): J44.0 - Chronic obstructive pulmonary disease with acute lower respiratory infection - Discharge Information *PRESCRIPTION DRUG MONITORING PROGRAM REVIEWED*: No *COPY OF PRESCRIPTION DRUG MONITORING REPORT IN PATIENT SHERIDAN: No Referrals: Casey Rajput MD [Primary Care Provider] - Forms: ED Department Discharge - My Orders Last 24 Hours: My Active Orders 01/31/19 14:52 RT Aerosol Therapy [RC] ASDIRECTED 01/31/19 14:53 Sodium Chloride 0.9% [Saline Flush] 10 ml FLUSH ASDIRECTED PRN Saline Lock Insert [OM.PC] Routine 01/31/19 15:26 RT Aerosol Therapy [RC] ASDIRECTED 01/31/19 15:46 UA W/MICROSCOPIC [URIN] Stat - Assessment/Plan Last 24 Hours: My Active Orders 01/31/19 14:52 RT Aerosol Therapy [RC] ASDIRECTED 01/31/19 14:53 Sodium Chloride 0.9% [Saline Flush] 10 ml FLUSH ASDIRECTED PRN Saline Lock Insert [OM.PC] Routine 01/31/19 15:26 RT Aerosol Therapy [RC] ASDIRECTED 01/31/19 15:46 UA W/MICROSCOPIC [URIN] Stat
[2019-01-31] MEDS ORDERED: Albuterol 0.083% 2.5 MG/3 ML Neb Soln NEB ONE (15:25)
--- NOTE | 2019-01-31 15:36 | CR ---
CHEST: 2 view CLINICAL HISTORY:SOB, COPD COMPARISON:CT February 20, 2018 FINDINGS: Lungs are emphysematous. Heart size and pulmonary vascularity are normal. There are atherosclerotic changes in the aorta... There is a patchy lingular infiltrate. There is no pleural effusion. Impression: Left upper lobe and lingular pneumonic infiltrate Underlying COPD
[2019-01-31] MEDS ORDERED: Azithromycin 250 MG Tab PO STA (15:45)
[2019-01-31] MEDS ORDERED: cefTRIAXone 1 GM in Sodium Chloride 0.9% 50 ML IV ONE (15:46)
[2019-01-31 16:06] VITALS: BP 138/55; PULSE 136
[2019-01-31] MEDS ORDERED: HYDROmorphone 0.5 MG/0.5 ML Syringe IVPUSH ONE (16:32)
== END 2019-01-31 18:30 ==
LOC: JP.ED 14:37
DX: J18.1 Lobar pneumonia, unspecified organism (principal); J44.0 Chronic obstructive pulmonary disease with (acute) lower respiratory infection; K21.9 Gastro-esophageal reflux disease without esophagitis; E78.00 Pure hypercholesterolemia, unspecified; Z79.82 Long term (current) use of aspirin; Z79.899 Other long term (current) drug therapy
CPT/HCPCS: 36415; 71046; 80048; 85027; 94640; 96365; 96375; 99283; 99285; A9270; J0696; J1170; J2930; J7050; J7620-GY

== ENCOUNTER 2019-09-20 12:49 | Inpatient (IN) | payer MEDICARE ==
--- NOTE | 2019-09-20 13:22 | EDM.PDOC ---
ED HPI GENERAL MEDICAL PROBLEM - General Chief Complaint: General Stated Complaint: [facility] Time Seen by Provider: 09/20/19 13:00 Source of Information: Reports: Patient, EMS, Other (Home nursing) History Limitations: Reports: No Limitations - History of Present Illness INITIAL COMMENTS - FREE TEXT/NARRATIVE: 74-year-old male who was still living independently and is a full code, has COPD and home care nursing coming in to help out. A nurse is been going on for the last 2 weeks and is seen a steady decline in his strength, he has not been eating, he stays on the couch all the time and he does not have the strength to get up and move. Today when she assessed him she decided to send him in by ambulance as she feels he needs hospitalization. His cough and wheezing is getting worse, but no fever or chills. Patient himself denies nausea or vomiting, has chronic back pain that oxycodone is not helping, it was prescribed to him over the past 2 weeks. Onset: Gradual Duration: Week(s): (Worse over the past 2 weeks) Neck Pain Score (Numeric/FACES): 7 - Related Data Allergies Allergy/AdvReac Type Severity Reaction Status Date / Time No Known Allergies Allergy Verified 09/20/19 12:56 Home Meds: Home Meds Aspirin [Ecotrin] 81 mg PO DAILY 11/27/14 [History] Omeprazole 40 mg PO DAILY 11/27/14 [History] Simvastatin [Zocor] 20 mg PO BEDTIME 11/27/14 [History] Budesonide [Pulmicort] 0.5 mg INH BID 03/23/19 [History] Ipratropium [Atrovent] 0.5 unit INH Q4H PRN 03/23/19 [History] Nitroglycerin [Nitrostat] 1 tab SL ASDIRECTED PRN 03/23/19 [History] levalbuterol HCL [Xopenex] 1.25 mg INH Q4H PRN 03/23/19 [History] Acetaminophen [Acetaminophen Extra Strength] 1 tab PO ASDIRECTED PRN 09/20/19 [ History] Gabapentin [Neurontin] 200 mg PO BID 09/20/19 [History] Ibuprofen [Motrin] 1 tab PO TID 09/20/19 [History] Metoprolol Succinate [Toprol XL] 25 mg PO BEDTIME 09/20/19 [History] Umeclidinium Brm/Vilanterol Tr [Anoro Ellipta 62.5-25 MCG] 1 puff INH DAILY [History] lisinopriL [Lisinopril] 2.5 mg PO BEDTIME 09/20/19 [History] oxyCODONE HCl/Acetaminophen [Oxycodone-Acetaminophen 5-325] 1 tab PO ASDIRECTED 09/20/19 [History] Past Medical History HEENT History: Reports: Cataract, Impaired Vision Other HEENT History: wears glasses Cardiovascular History: Reports: CAD, High Cholesterol, SOB on Exertion, Stents Respiratory History: Reports: COPD, SOB Gastrointestinal History: Reports: GERD, Other (See Below) Other Gastrointestinal History: inguinal hernia Genitourinary History: Reports: Prostate Disorder Musculoskeletal History: Reports: Arthritis, Fracture - Infectious Disease History Infectious Disease History: Reports: Chicken Pox Other Infectious Disease History: unknown - Past Surgical History Cardiovascular Surgical History: Reports: Coronary Artery Stent, Other (See Below) Other Cardiovascular Surgeries/Procedures: vascular stents in leg. GI Surgical History: Reports: Hernia, Inguinal Social & Family History - Family History Cardiac: Reports: [place] GI: Reports: Other (See Below) Other GI Family History: mother had stomach tumor-unknown if cancerous Musculoskeletal: Reports: Arthritis - Tobacco Use Smoking Status *Q: Former Smoker Used Tobacco, but Quit: Yes Month/Year Tobacco Last Used: dec 2018 - Caffeine Use Caffeine Use: Reports: Soda - Recreational Drug Use Recreational Drug Use: No ED ROS GENERAL - Review of Systems Review Of Systems: See Below Constitutional: Reports: Malaise, Decreased Appetite. Denies: Fever, Chills HEENT: Denies: Vision Change Respiratory: Reports: Shortness of Breath, Wheezing, Cough Cardiovascular: Denies: Chest Pain, Palpitations GI/Abdominal: Reports: Decreased Appetite. Denies: Abdominal Pain, Nausea, Vomiting Musculoskeletal: Reports: Back Pain Skin: Reports: Pallor Neurological: Reports: Dizziness, Weakness (Weakness is severe, he is unable to stand) Psychiatric: Denies: Anxiety ED EXAM, GENERAL - Physical Exam Exam: See Below Free Text/Narrative:: Patient does look weak, somewhat pale and cachectic. Exam Limited By: No Limitations General Appearance: Alert, No Apparent Distress Eye Exam: Right Eye: Normal Inspection (No jaundice, hydration appears adequate) Head: Atraumatic Respiratory/Chest: No Respiratory Distress, Rhonchi (Significant perihilar and upper airway rhonchi with scattered expiratory wheezes) Cardiovascular: Regular Rate, Rhythm GI/Abdominal: Soft, Non-Tender Extremities: Normal Inspection. No: Pedal Edema Neurological: Alert, Oriented Psychiatric: Flat Affect Skin Exam: Warm, Dry Course - Vital Signs Last Recorded V/S: Last Vital Signs Temp 100.1 F 09/20/19 16:32 Pulse 85 09/20/19 16:32 Resp 22 H 09/20/19 16:32 BP 133/48 L 09/20/19 16:32 Pulse Ox 98 09/20/19 16:32 - Orders/Labs/Meds Orders: Active Orders 24 hr Category Date Time Status CULTURE URINE [RM] Stat Lab 09/20/19 14:30 Received Medication Orders Acetaminophen (Tylenol) 650 mg PO Q4H PRN PRN Reason: Pain (Mild 1-3)/fever Aspirin (Halfprin) 81 mg PO DAILY [facility] Budesonide (Pulmicort) 0.5 mg INH BID [facility] Enoxaparin Sodium (Lovenox) 40 mg SUBCUT DAILY [facility] Gabapentin (Neurontin) 200 mg PO BID [facility] Ceftriaxone Sodium 1 gm/ (Sodium Chloride) 50 mls @ 100 mls/hr IV Q24H [facility] Potassium Chloride/Sodium Chloride (Normal Saline With 20 Meq Kcl) 1,000 mls @ 125 mls/hr IV ASDIRECTED [facility] Ibuprofen (Motrin) 600 mg PO TID [facility] Lactobacillus Rhamnosus (Culturelle) 1 cap PO BID [facility] Levalbuterol HCl (Xopenex) 1.25 mg INH Q4H PRN PRN Reason: Shortness of Breath Lisinopril (Prinivil) 2.5 mg PO BEDTIME [facility] Lorazepam (Ativan) 0.5 mg IVPUSH Q4H PRN PRN Reason: Nausea/Vomiting Magnesium Hydroxide (Milk Of Magnesia) 30 ml PO Q12H PRN PRN Reason: Constipation Metoprolol Succinate (Toprol Xl) 25 mg PO BEDTIME [facility] Morphine Sulfate (Ms Contin) 15 mg PO BEDTIME [facility] Non-Formulary Medication (Umeclidinium Brm/Vilanterol Tr [Anoro Ellipta 62.5-25 Mcg]) 1 puff INH DAILY [facility] Ondansetron HCl (Zofran Odt) 4 mg PO Q6H PRN PRN Reason: Nausea able to take PO Ondansetron HCl (Zofran) 4 mg IV Q6H PRN PRN Reason: Nausea/Vomiting Oxycodone/Acetaminophen (Percocet 325-5 Mg) 1 tab PO QID [facility] Pantoprazole Sodium (Protonix) 40 mg PO ACBREAKFAST [facility] Senna/Docusate Sodium (Senna Plus) 1 tab PO BID PRN PRN Reason: Constipation Simvastatin (Zocor) 20 mg PO BEDTIME [facility] Labs: Laboratory Tests 09/20/19 09/20/19 09/20/19 Range/Units 13:36 13:42 13:42 WBC 7.3 (4.5-11.0) K/uL RBC 4.14 L (4.30-5.90) M/uL Hgb 11.6 L (12.0-15.0) g/dL Hct 36.5 L (40.0-54.0) % MCV 88 (80-98) fL MCH 28 (27-31) pg MCHC 32 (32-36) % Plt Count 292 (150-400) K/uL Neut % (Auto) 64 (36-66) % Lymph % (Auto) 19 L (24-44) % [place] % (Auto) 9 H (2-6) % Eos % (Auto) 7 H (2-4) % Baso % (Auto) 1 (0-1) % Sodium 140 (140-148) mmol/L Potassium 3.4 L (3.6-5.2) mmol/L Chloride 105 (100-108) mmol/L Carbon Dioxide 27 (21-32) mmol/L Anion Gap 11.4 (5.0-14.0) mmol/L BUN 24 H (7-18) mg/dL Creatinine 1.1 (0.8-1.3) mg/dL Est Cr Clr Drug Dosing 44.98 mL/min Estimated GFR (MDRD) > 60 (>60) Glucose 117 H (74-106) mg/dL Calcium 8.4 L (8.5-10.1) mg/dL Total Bilirubin 0.5 (0.2-1.0) mg/dL AST 19 (15-37) U/L ALT 21 (12-78) U/L Alkaline Phosphatase 928 H D (46-116) U/L Total Protein 6.9 (6.4-8.2) g/dL Albumin 2.4 L (3.4-5.0) g/dL Globulin 4.5 H (2.3-3.5) g/dL Albumin/Globulin Ratio 0.5 L (1.2-2.2) Urine Color Yellow (YELLOW) Urine Appearance Cloudy A (CLEAR) Urine pH 6.0 (5.0-8.0) Ur Specific [place] 1.025 (1.008-1.030) Urine Protein 30 H (NEGATIVE) mg/dL Urine Glucose (UA) Negative (NEGATIVE) mg/dL Urine Ketones Negative (NEGATIVE) mg/dL Urine Occult Blood Moderate H (NEGATIVE) Urine Nitrite Positive H (NEGATIVE) Urine Bilirubin Small H (NEGATIVE) Urine Urobilinogen 1.0 (0.2-1.0) EU/dL Ur Leukocyte Esterase Moderate H (NEGATIVE) Urine RBC 75-100 H (0-5) Urine WBC Semi-packed H (0-5) Ur Epithelial Cells Few Amorphous Sediment Not seen Urine Bacteria Moderate Urine Mucus Few Meds: Medications Generic Name Dose Route Start Last Admin Trade Name Freq PRN Reason Stop Dose Admin Acetaminophen 650 mg 09/20/19 16:25 Tylenol PO Q4H PRN Pain (Mild 1-3)/fever Aspirin 81 mg 09/21/19 09:00 Halfprin PO DAILY [facility] Budesonide 0.5 mg 09/20/19 21:00 Pulmicort INH BID [facility] Enoxaparin Sodium 40 mg 09/21/19 09:00 Lovenox SUBCUT DAILY [facility] Gabapentin 200 mg 09/20/19 21:00 Neurontin PO BID [facility] Ceftriaxone Sodium 1 gm/ 50 mls @ 100 mls/hr 09/21/19 15:00 Sodium Chloride IV Q24H [facility] Potassium Chloride/Sodium Chloride 1,000 mls @ 125 mls/hr 09/20/19 16:25 Normal Saline With 20 Meq Kcl IV ASDIRECTED [facility] Ibuprofen 600 mg 09/20/19 21:00 Motrin PO TID [facility] Lactobacillus Rhamnosus 1 cap 09/20/19 21:00 Culturelle PO BID [facility] Levalbuterol HCl 1.25 mg 09/20/19 16:25 Xopenex INH Q4H PRN Shortness of Breath Lisinopril 2.5 mg 09/20/19 21:00 Prinivil PO BEDTIME [facility] Lorazepam 0.5 mg 09/20/19 16:25 Ativan IVPUSH Q4H PRN Nausea/Vomiting Magnesium Hydroxide 30 ml 09/20/19 16:25 Milk Of Magnesia PO Q12H PRN Constipation Metoprolol Succinate 25 mg 09/20/19 21:00 Toprol Xl PO BEDTIME [facility] Morphine Sulfate 15 mg 09/20/19 21:00 Ms Contin PO BEDTIME [facility] Non-Formulary Medication 1 puff 09/21/19 09:00 Umeclidinium Brm/Vilanterol Tr [Anoro Ellipta 62.5-25 Mcg] INH DAILY [facility] Ondansetron HCl 4 mg 09/20/19 16:25 Zofran Odt PO Q6H PRN Nausea able to take PO Ondansetron HCl 4 mg 09/20/19 16:25 Zofran IV Q6H PRN Nausea/Vomiting Oxycodone/Acetaminophen 1 tab 09/20/19 16:25 Percocet 325-5 Mg PO QID [facility] Pantoprazole Sodium 40 mg 09/21/19 07:30 Protonix PO ACBREAKFAST [facility] Senna/Docusate Sodium 1 tab 09/20/19 16:25 Senna Plus PO BID PRN Constipation Simvastatin 20 mg 09/20/19 21:00 Zocor PO BEDTIME [facility] Discontinued Medications Generic Name Dose Route Start Last Admin Trade Name Freq PRN Reason Stop Dose Admin Sodium Chloride 1,000 mls @ 250 mls/hr 09/20/19 14:45 09/20/19 15:19 Normal Saline IV 250 mls/hr ASDIRECTED [facility] Administration Ceftriaxone Sodium 1 gm/ 50 mls @ 100 mls/hr 09/20/19 14:45 09/20/19 15:19 Sodium Chloride IV 09/20/19 15:14 100 mls/hr ONETIME ONE Administration - Re-Assessments/Exams Free Text/Narrative Re-Assessment/Exam: 09/20/19 13:48 CBC, CMP, UA and 2 view chest x-ray were ordered. Patient was continued on O2 per nasal cannula to maintain saturations in the mid 90s. Despite the patient not having any significant complaints, I did discuss his condition with the home nurse who sent him in and she said he was too weak to even stand to do long sounds today and did not appear to have moved from his couch for the last 2 days. She is concerned he is not eating anything. 09/20/19 14:21 Hemoglobin is 11.6, white count is normal at 7300. Urine is markedly positive for UTI, nitrate positive with many bacteria and WBCs. A urine culture was initiated and an IV started for hydration and IV antibiotics. His chemistry profile shows a rapidly elevating alkaline phosphatase which is concerning for possible bony involvement of metastatic disease. An IV will be started, hydration initiated as well as Rocephin IV for antibiotic treatment of his UTI. The hospitalist service will be consulted for admission for further evaluation and treatment. Departure - Departure Time of Disposition: 15:58 Disposition: Admitted As Inpatient 66 Clinical Impression: Weakness generalized UTI (urinary tract infection) Qualifiers: Urinary tract infection type: site unspecified Hematuria presence: without hematuria Qualified Code(s): N39.0 - Urinary tract infection, site not specified COPD (chronic obstructive pulmonary disease) Qualifiers: COPD type: emphysema Emphysema type: unspecified Qualified Code(s): J43.9 - Emphysema, unspecified Chronic back pain Qualifiers: Back pain location: thoracic back pain Back pain laterality: midline Qualified Code(s): M54.6 - Pain in thoracic spine - Discharge Information Sepsis Event Note - Evaluation Sepsis Screening Result: No Definite Risk - Focused Exam Vital Signs: Vital Signs Temp Pulse Resp BP Pulse Ox 09/20/19 13:21 79 109/51 L 09/20/19 12:52 97 F 81 22 H 137/50 L 96 Date Exam was Performed: 09/20/19 Time Exam was Performed: 16:39 - My Orders Last 24 Hours: My Active Orders 09/20/19 14:30 CULTURE URINE [RM] Stat - Assessment/Plan Last 24 Hours: My Active Orders 09/20/19 14:30 CULTURE URINE [RM] Stat
--- NOTE | 2019-09-20 14:14 | CRLCR ---
INDICATION: Dyspnea TECHNIQUE: Chest 2 views. COMPARISON: 01/31/2019 FINDINGS: Cardiovascular and mediastinum: Heart size and vasculature are normal in caliber and appearance. Mediastinum is within normal limits. Lungs and pleural spaces: Increase bilateral interstitial markings. No definitive consolidations. No sign of pleural effusion. No pneumothorax. Bones and soft tissues: No significant findings. IMPRESSION: No definitive acute pulmonary cardiac abnormalities. Dictated by Casey Carpenter MD @ 09/20/2019 2:13:47 PM Dictated by: Casey Carpenter MD @ 09/20/2019 14:13:56 (Electronically Signed)
[2019-09-20] MEDS ORDERED: cefTRIAXone 1 GM in Sodium Chloride 0.9% 50 ML IV ONE ×2 (14:31→14:45)
[2019-09-20] MEDS ORDERED: Sodium Chloride 0.9% 1,000 ML IV SCH (14:45)
--- NOTE | 2019-09-20 15:16 | PCM.HP.2 ---
H&P History of Present Illness - General Date of Service: 09/20/19 Admit Problem/Dx: Admission Diagnosis/Problem Admission Diagnosis/Problem Complicated urinary tract infection Source of Information: Patient, Provider History Limitations: Reports: No Limitations - History of Present Illness Initial Comments - Free Text/Narative: CC: My neck and shoulder keep giving me trouble HPI: Tay presented to the emergency room by ambulance at the urging of his home health care nurse. He has been getting more and more weak over the past several days to the point that he could not get off the couch and was not able to stand up. He has not been eating well but says he has been drinking fluids okay. His main concern is his neck and right shoulder pain. He reports progression of the achy pain over the past several weeks. He was recently started on oxycodone and this seems to be helping the pain. Pain is worse when he lays in certain positions or moves his right shoulder. Pain has steadily been getting worse until he got started on the pain meds. He did have a CT scan of the neck which showed significant arthritis and degenerative disc disease but also noted lesions that were concerning for metastatic disease. He has not had any fevers or chills but has occasional episodes of sweating. He does not have night sweats. He has lost close to 10 pounds in the last couple of months. His appetite has been decreased and he is only able to eat small amounts at one time. He does report dyspnea but thinks it sat close to his baseline. He is oxygen dependent. No bowel movement in several days. No change in bladder habits that he is aware of. Work-up in the emergency room was suggestive of a urinary tract infection. He has mild hypokalemia. He is too weak to bear any weight and will be admitted for further management because he is not safe for outpatient treatment. Neck Pain Score (Numeric/FACES): 7 - Related Data Allergies/Adverse Reactions: Allergies Allergy/AdvReac Type Severity Reaction Status Date / Time No Known Allergies Allergy Verified 09/20/19 12:56 Home Medications: Home Meds Aspirin [Ecotrin] 81 mg PO DAILY 11/27/14 [History] Omeprazole 40 mg PO DAILY 11/27/14 [History] Simvastatin [Zocor] 20 mg PO BEDTIME 11/27/14 [History] Budesonide [Pulmicort] 0.5 mg INH BID 03/23/19 [History] Ipratropium [Atrovent] 0.5 unit INH Q4H PRN 03/23/19 [History] Nitroglycerin [Nitrostat] 1 tab SL ASDIRECTED PRN 03/23/19 [History] levalbuterol HCL [Xopenex] 1.25 mg INH Q4H PRN 03/23/19 [History] Acetaminophen [Acetaminophen Extra Strength] 1 tab PO ASDIRECTED PRN 09/20/19 [ History] Gabapentin [Neurontin] 200 mg PO BID 09/20/19 [History] Ibuprofen [Motrin] 1 tab PO TID 09/20/19 [History] Metoprolol Succinate [Toprol XL] 25 mg PO BEDTIME 09/20/19 [History] Umeclidinium Brm/Vilanterol Tr [Anoro Ellipta 62.5-25 MCG] 1 puff INH DAILY [History] lisinopriL [Lisinopril] 2.5 mg PO BEDTIME 09/20/19 [History] oxyCODONE HCl/Acetaminophen [Oxycodone-Acetaminophen 5-325] 1 tab PO ASDIRECTED 09/20/19 [History] Past Medical History HEENT History: Reports: Cataract, Impaired Vision Other HEENT History: wears glasses Cardiovascular History: Reports: CAD, High Cholesterol, SOB on Exertion, Stents Respiratory History: Reports: COPD, SOB Gastrointestinal History: Reports: GERD, Other (See Below) Other Gastrointestinal History: inguinal hernia Genitourinary History: Reports: Prostate Disorder Musculoskeletal History: Reports: Arthritis, Fracture - Infectious Disease History Infectious Disease History: Reports: Chicken Pox Other Infectious Disease History: unknown - Past Surgical History Cardiovascular Surgical History: Reports: Coronary Artery Stent, Other (See Below) Other Cardiovascular Surgeries/Procedures: vascular stents in leg. GI Surgical History: Reports: Hernia, Inguinal Social & Family History - Family History Cardiac: Reports: [place] GI: Reports: Other (See Below) Other GI Family History: mother had stomach tumor-unknown if cancerous Musculoskeletal: Reports: Arthritis Oncologic: Denies: Prostate - Tobacco Use Smoking Status *Q: Former Smoker Used Tobacco, but Quit: Yes Month/Year Tobacco Last Used: dec 2018 - Caffeine Use Caffeine Use: Reports: Soda - Recreational Drug Use Recreational Drug Use: No H&P Review of Systems - Review of Systems: Review Of Systems: See Below Free Text/Narrative: A complete 12 point review of systems was obtained. Pertinent positives and negatives are noted in the history of present illness. All other systems were reviewed and were negative except as noted. Exam - Exam Exam: See Below - Vital Signs Vital Signs: Last Vital Signs Temp 36.1 C 09/20/19 12:52 Pulse 76 09/20/19 15:09 Resp 22 H 09/20/19 15:09 BP 157/58 H 09/20/19 15:09 Pulse Ox 94 L 09/20/19 15:09 Weight: 53.977 kg - Exam Quality Assessment: No: Supplemental Oxygen General: Alert, Oriented, Cooperative. No: Mild Distress HEENT: Conjunctiva Clear. No: Mucosa Moist & [place] (Very dry), Scleral Icterus Neck: Supple, Trachea Midline. No: Lymphadenopathy Lungs: Rhonchi (Moderate diffuse). No: Normal Respiratory Effort (Mild increase in work of breathing), Wheezing Cardiovascular: Regular Rate, Regular Rhythm. No: Systolic Murmur GI/Abdominal Exam: Normal Bowel Sounds, Soft, Non-Tender, No Distention, No Mass Extremities: No Pedal Edema. No: Increased Warmth Peripheral Pulses: 1+: Dorsalis Pedis (L), Dorsalis Pedis (R) Skin: Warm, Dry. No: Rash Neuro Extensive - Mental Status: Alert, Oriented x3, Nl Response to Commands Neuro Extensive - Motor, Sensory, Reflexes: No: Dysarthria, Abnormal Motor, Tremor Psychiatric: Alert, Normal Affect - Patient Data Lab Results Last 24 hrs: Laboratory Results - last 24 hr 09/20/19 09/20/19 09/20/19 Range/Units 13:36 13:42 13:42 WBC 7.3 (4.5-11.0) K/uL RBC 4.14 L (4.30-5.90) M/uL Hgb 11.6 L (12.0-15.0) g/dL Hct 36.5 L (40.0-54.0) % MCV 88 (80-98) fL MCH 28 (27-31) pg MCHC 32 (32-36) % Plt Count 292 (150-400) K/uL Neut % (Auto) 64 (36-66) % Lymph % (Auto) 19 L (24-44) % [place] % (Auto) 9 H (2-6) % Eos % (Auto) 7 H (2-4) % Baso % (Auto) 1 (0-1) % Sodium 140 (140-148) mmol/L Potassium 3.4 L (3.6-5.2) mmol/L Chloride 105 (100-108) mmol/L Carbon Dioxide 27 (21-32) mmol/L Anion Gap 11.4 (5.0-14.0) mmol/L BUN 24 H (7-18) mg/dL Creatinine 1.1 (0.8-1.3) mg/dL Est Cr Clr Drug Dosing 44.98 mL/min Estimated GFR (MDRD) > 60 (>60) Glucose 117 H (74-106) mg/dL Calcium 8.4 L (8.5-10.1) mg/dL Total Bilirubin 0.5 (0.2-1.0) mg/dL AST 19 (15-37) U/L ALT 21 (12-78) U/L Alkaline Phosphatase 928 H D (46-116) U/L Total Protein 6.9 (6.4-8.2) g/dL Albumin 2.4 L (3.4-5.0) g/dL Globulin 4.5 H (2.3-3.5) g/dL Albumin/Globulin Ratio 0.5 L (1.2-2.2) Urine Color Yellow (YELLOW) Urine Appearance Cloudy A (CLEAR) Urine pH 6.0 (5.0-8.0) Ur Specific [place] 1.025 (1.008-1.030) Urine Protein 30 H (NEGATIVE) mg/dL Urine Glucose (UA) Negative (NEGATIVE) mg/dL Urine Ketones Negative (NEGATIVE) mg/dL Urine Occult Blood Moderate H (NEGATIVE) Urine Nitrite Positive H (NEGATIVE) Urine Bilirubin Small H (NEGATIVE) Urine Urobilinogen 1.0 (0.2-1.0) EU/dL Ur Leukocyte Esterase Moderate H (NEGATIVE) Urine RBC 75-100 H (0-5) Urine WBC Semi-packed H (0-5) Ur Epithelial Cells Few Amorphous Sediment Not seen Urine Bacteria Moderate Urine Mucus Few Result Diagrams: 09/20/19 13:42 09/20/19 13:42 Imaging Impressions Last 24 hrs: Chest [id number] personally reviewed-lungs are clear with no, mass infiltrate or effusion. Lungs are hyperinflated consistent with emphysema Sepsis Event Note - Evaluation Sepsis Screening Result: No Definite Risk - Focused Exam Vital Signs: Vital Signs Temp Pulse Resp BP Pulse Ox 09/20/19 15:09 76 22 H 157/58 H 94 L 09/20/19 13:21 79 109/51 L 09/20/19 12:52 36.1 C 81 22 H 137/50 L 96 Date Exam was Performed: 09/20/19 Time Exam was Performed: 15:30 *Q Meaningful Use (ADM) - VTE Risk Assess *Q Each Risk Factor Represents 1 Point: Abnormal Pulmonary Function (COPD) Total Score 1 Point Risk Factors: 1 Each Risk Factor Represents 2 Points: Age 60 - 74 Years, Malignancy (present or previous) Total Score 2 Point Risk Factors: 4 Each Risk Factor Represents 3 Points: None Total Score 3 Point Risk Factors: 0 Each Risk Factor Represents 5 Points: None Total Score 5 Point Risk Factors: 0 Venous Thromboembolism Risk Factor Score *Q: 5 - Problem List (1) Complicated urinary tract infection SNOMED Code(s): 41911051 ICD Code: N39.0 - URINARY TRACT INFECTION, SITE NOT SPECIFIED Status: Acute Current Visit: Yes (2) Prostate cancer metastatic to bone SNOMED Code(s): 221775838 ICD Code: C61 - MALIGNANT NEOPLASM OF PROSTATE; C79.51 - SECONDARY MALIGNANT NEOPLASM OF BONE Status: Suspected Current Visit: Yes (3) Hypokalemia SNOMED Code(s): 89489462 ICD Code: E87.6 - HYPOKALEMIA Status: Acute Current Visit: Yes (4) CAD (coronary artery disease), [place] coronary artery SNOMED Code(s): 440003629 ICD Code: I25.10 - ATHSCL HEART DISEASE OF [place] CORONARY ARTERY W/O ANG PCTRS Status: Chronic Current Visit: No Qualifiers: [place] vs. transplanted heart: [place] heart Associated angina: without angina Qualified Code(s): I25.10 - Atherosclerotic heart disease of [place] coronary artery without angina pectoris (5) COPD (chronic obstructive pulmonary disease) SNOMED Code(s): 01222367 ICD Code: J44.9 - CHRONIC OBSTRUCTIVE PULMONARY DISEASE, UNSPECIFIED Status : Chronic Current Visit: Yes Qualifiers: COPD type: emphysema Emphysema type: unspecified Qualified Code(s): J43.9 - Emphysema, unspecified Problem List Initiated/Reviewed/Updated: Yes Orders Last 24hrs: Active Orders 24 hr Category Date Time Status Patient Status Manage Transfer [TRANSFER] Routine ADT 09/20/19 15:05 Ordered CULTURE URINE [RM] Stat Lab 09/20/19 14:30 Received Sodium Chloride 0.9% [Normal Saline] 1,000 ml Med 09/20/19 14:45 Active IV ASDIRECTED Resuscitation Status Routine Resus Stat 09/20/19 15:07 Ordered Medication Orders Sodium Chloride (Normal Saline) 1,000 mls @ 250 mls/hr IV ASDIRECTED ROSA Assessment/Plan Comment:: ASSESSMENT AND PLAN - Complicated urinary tract infection-suspect prostate cancer as discussed below. No impressive urinary symptoms at this time but I suspect the weakness is related to the active infection. No evidence for sepsis at this time. He is too weak to stand up and is not safe for outpatient management. -Antibiotic coverage with ceftriaxone -IV fluids -Follow-up urine culture Suspected metastatic prostate cancer-PSA level just over a year ago was more than 100. Patient did not follow through for biopsy at that time. Recent CT scan raised concern for bony metastases. Patient has been losing weight. -PSA in the morning -CT of the chest, abdomen and pelvis to determine the extent of disease -Outpatient oncology follow-up Oxygen dependent COPD-dyspnea is at baseline. Oxygenation stable with usual amount of home O2. -Supplement oxygen -Continue home medications Coronary artery disease-no active symptoms. -Continue home medications Maintenance issues - - DVT prophylaxis -enoxaparin - GI prophylaxis -PPI - Nutrition -regular with supplements - Felix catheter -not indicated CODE STATUS -Don wishes to be full code at this time Admission justification -this patient will be admitted for inpatient services and is medically appropriate meeting medical necessity for inpatient admission as outlined in my documentation. I reasonably expect the patient will require inpatient services that span a period time over 2 midnights. I reasonably expect this patient to be discharged or transferred within 96 hours [facility]. Disposition -I would anticipate discharge home with home care after the hospital stay Primary care physician -Dr. Regulo Love M.D. - Mortality Measure Prognosis:: Poor
[2019-09-20] MEDS ORDERED: LORazepam 2 MG/ML SDV IVPUSH PRN (16:25)
[2019-09-20] MEDS ORDERED: Ondansetron 4 MG/2 ML SDV IV PRN (16:25)
[2019-09-20] MEDS ORDERED: Acetaminophen 325 MG Tab PO PRN (16:25)
[2019-09-20] MEDS ORDERED: NS + KCl 20mEq/L 1,000 ML IV SCH (16:25)
[2019-09-20] MEDS: Acetaminophen/oxyCODONE 325-5 MG Tab PO SCH ×2 (16:55→21:28)
[2019-09-20] MEDS: Budesonide 0.5 MG/2 ML Neb Susp INH SCH (21:28)
[2019-09-20] MEDS: Lactobacillus Rhamnosus GG (Probiotic) Cap PO SCH (21:29)
[2019-09-20] MEDS: Morphine 15 MG Tab.ER PO SCH (21:29)
[2019-09-20] MEDS: Gabapentin 100 MG Cap PO SCH (21:29)
[2019-09-20] MEDS: Ibuprofen 600 MG Tab PO SCH (21:29)
[2019-09-20] MEDS: Metoprolol Succinate 25 MG Tab.ER PO SCH (21:30)
[2019-09-20] MEDS: Simvastatin 20 MG Tab PO SCH (21:30)
[2019-09-20] MEDS: Lisinopril 2.5 MG Tab PO SCH (21:31)
[2019-09-20] MEDS: Levalbuterol HCl 1.25 MG/3 ML Neb INH PRN (22:28)
[2019-09-21] MEDS: Acetaminophen/oxyCODONE 325-5 MG Tab PO SCH ×4 (05:33→21:30)
[2019-09-21] MEDS: Budesonide 0.5 MG/2 ML Neb Susp INH SCH ×2 (07:06→21:30)
[2019-09-21] MEDS: ANORO ELLIPTA 62.5MCG/25MCG INHALER (PTOM) INH SCH (07:06)
[2019-09-21] MEDS: Pantoprazole 40 MG Tab.CR PO SCH (07:27)
[2019-09-21] MEDS ORDERED: Iopamidol 612 MG/ML 500 ML Multipack Bottle PO ONE (08:19)
[2019-09-21] MEDS: Ibuprofen 600 MG Tab PO SCH ×3 (08:47→21:30)
[2019-09-21] MEDS: Aspirin 81 MG Tab.EC PO SCH (08:47)
[2019-09-21] MEDS: Lactobacillus Rhamnosus GG (Probiotic) Cap PO SCH ×2 (08:47→21:30)
[2019-09-21] MEDS: Gabapentin 100 MG Cap PO SCH (08:47)
[2019-09-21] MEDS: Enoxaparin 40 MG/0.4 ML Syringe SUBCUT SCH (08:48)
[2019-09-21] MEDS ORDERED: Non-Formulary Medication 1 Each (Umeclidinium Brm/Vilanterol Tr [Anoro Ellipta 62.5-25 Mcg INH SCH (09:00)
[2019-09-21] MEDS ORDERED: Iopamidol 612 MG/ML 500 ML Multipack Bottle IV ONE (09:30)
[2019-09-21] MEDS ORDERED: LORazepam 0.5 MG Tab PO PRN (10:04)
--- NOTE | 2019-09-21 10:12 | CRLCT ---
4INDICATION: Evaluate metastatic cancer. COMPARISON: Chest radiograph dated September 20, 2019. There is no prior transaxial imaging available for comparison TECHNIQUE: CT examination of the chest, abdomen and pelvis was performed following the uneventful intravenous administration of 81 cc of Isovue-300. Thin section axial images were obtained from the lung bases through the pubic symphysis. Oral contrast was administered. Please note that all CT scans at this facility use dose modulation, iterative reconstruction, and/or weight-based dosing when appropriate to reduce radiation dose to as low as reasonably achievable. FINDINGS: CHEST: The heart size is normal. There are atherosclerotic vascular calcifications. There is mural thrombus in the thoracic aorta. There are prominent mediastinal lymph nodes especially subcarinal, right hilar and low right paratracheal which are suspicious for neoplasm. There is moderate to severe upper lobe predominant centrilobular greater than paraseptal emphysema. There are linear basilar opacities that are likely atelectatic or fibrotic. There are trace effusions. A spiculated nodule is noted in the right upper lobe on image 29 measuring 1 centimeter in greatest dimension. I favor this is neoplastic but it could be inflammatory. There several additional regional nodules in this area that could be malignant or inflammatory. No significant appearing left-sided nodules. ABDOMEN AND PELVIS: LIVER/BILIARY SYSTEM:The liver is normal in size without focal mass or biliary ductal dilatation. There is fatty infiltration. The gallbladder appears normal ADRENALS: Normal KIDNEYS, URETERS and BLADDER:The kidneys appear normal. No visible mass, calculus or hydronephrosis. The ureters and bladder as visualized appear normal. SPLEEN:Normal appearance. PANCREAS: Appears normal. RETROPERITONEUM and MESENTERY: There are prominent retroperitoneal lymph nodes. The largest is behind the cava on the right on near the renal hilus measuring about 4 centimeters . These lymph nodes are likely malignant. There also clearly visible pelvic lymph nodes especially in the right pelvic sidewall the largest of which measures 2.7 centimeters.. There is also diffuse atherosclerotic vascular calcifications with mural thrombus. Maximum dimension is of the distal most aorta at about 3.1 centimeters GASTROINTESTINAL SYSTEM: There is no evidence of diverticulitis, colitis, mechanical obstruction, or appendicitis. The small bowel as visualized appears normal.There is diverticulosis PELVIS: The prostate is heterogeneous probably the primary neoplasm though no directly visible masses identified.. OSSEOUS STRUCTURES and ABDOMINAL WALL: Diffuse osteo sclerotic disease involving every bone consistent with metastatic disease likely prostate origin. I do not see any acute or apparently impending fracture. There is loss of height of 2 adjacent mid thoracic vertebral bodies which do not appear to be acute and probably are not pathologic OTHER: No free fluid or free air. IMPRESSION: 1. In the chest, there is significant emphysema. Trace effusions. Mediastinal lymphadenopathy which is suspected to be malignant. There is a spiculated right upper lobe nodule which could be inflammatory or neoplastic. If this neoplastic is probably an lung primary rather than a metastatic deposit. 2. Regarding the osseous structures, every visible osseous structure contains sclerotic foci likely metastatic prostate carcinoma. No definite pathologic fracture or impending pathologic fracture 3. Retroperitoneal and pelvic lymphadenopathy, likely metastatic. 4. Heterogeneous prostate bed no clearly visible mass directly. 5. Mural thrombus identified throughout the aorta. Maximum fusiform dilatation is distal most aorta at 3.1 centimeters. 6. Other incidental findings as discussed above Please note that all CT scans at this facility use dose modulation, iterative reconstruction, and/or weight-based dosing when appropriate to reduce radiation dose to as low as reasonably achievable. Dictated by Ronaldo Bray MD @ Sep 21 2019 9:55AM Signed by Dr. Ronaldo Bray @ Sep 21 2019 10:11AM
[2019-09-21] MEDS ORDERED: Lidocaine 2% Jelly 10 ML Urojet MUCMEM ONE (10:15)
--- NOTE | 2019-09-21 15:03 | PCM.PN ---
- General Info Date of Service: 09/21/19 Subjective Update: There were no acute events overnight. Patient has been difficulty passing urine and had a significantly distended bladder on the CT scan. Pain is fairly well-controlled at this point and the chronic neck and right shoulder pain is the most impressive of his pains. Cough is at baseline. Oxygenation stable on 2 L of supplemental oxygen. No bowel movement yet. He is very weak and requires significant assistance to even stand up. PSA was obtained this morning and is greater than 100. CT scan of the chest, abdomen pelvis revealed concern for a spiculated mass in the right upper lung field as well as mediastinal and mesenteric lymphadenopathy. Also noted was diffuse bony changes concerning for metastases. Functional Status: Reports: Pain Controlled - Patient Data Vitals - Most Recent: Last Vital Signs Temp 36.4 C 09/21/19 14:37 Pulse 76 09/21/19 14:37 Resp 18 09/21/19 14:37 BP 135/41 L 09/21/19 14:37 Pulse Ox 97 09/21/19 14:37 Weight - Most Recent: 53.977 kg I&O - Last 24 Hours: Intake & Output 09/20/19 09/21/19 09/21/19 22:59 06:59 14:59 Intake Total 300 Output Total 200 300 400 Balance 100 -300 -400 Lab Results Last 24 Hours: Laboratory Results - last 24 hr 09/21/19 09/21/19 Range/Units 05:30 05:30 WBC 6.7 (4.5-11.0) K/uL RBC 3.90 L (4.30-5.90) M/uL Hgb 10.6 L (12.0-15.0) g/dL Hct 34.5 L (40.0-54.0) % MCV 89 (80-98) fL MCH 27 (27-31) pg MCHC 31 L (32-36) % Plt Count 245 (150-400) K/uL Sodium 141 (140-148) mmol/L Potassium 3.9 (3.6-5.2) mmol/L Chloride 109 H (100-108) mmol/L Carbon Dioxide 25 (21-32) mmol/L Anion Gap 10.9 (5.0-14.0) mmol/L BUN 19 H (7-18) mg/dL Creatinine 0.9 (0.8-1.3) mg/dL Est Cr Clr Drug Dosing 54.98 mL/min Estimated GFR (MDRD) > 60 (>60) Glucose 93 (74-106) mg/dL Calcium 8.3 L (8.5-10.1) mg/dL PSA Screen > 100.0 H (0.0-4.0) ug/L Tavon Results Last 24 Hours: Microbiology 09/20/19 14:30 Urine Culture - Preliminary Urine, Clean Catch Med Orders - Current: Current Medications Acetaminophen (Tylenol) 650 mg PO Q4H PRN PRN Reason: Pain (Mild 1-3)/fever Aspirin (Halfprin) 81 mg PO DAILY [facility] Last Admin: 09/21/19 08:47 Dose: 81 mg Budesonide (Pulmicort) 0.5 mg INH BIDRT [facility] Last Admin: 09/21/19 07:06 Dose: 0.5 mg Enoxaparin Sodium (Lovenox) 40 mg SUBCUT DAILY [facility] Last Admin: 09/21/19 08:48 Dose: 40 mg Gabapentin (Neurontin) 200 mg PO BID [facility] Last Admin: 09/21/19 08:47 Dose: 200 mg Ceftriaxone Sodium 1 gm/ (Sodium Chloride) 50 mls @ 100 mls/hr IV Q24H [facility] Potassium Chloride/Sodium Chloride (Normal Saline With 20 Meq Kcl) 1,000 mls @ 125 mls/hr IV ASDIRECTED [facility] Last Admin: 09/20/19 23:48 Dose: 125 mls/hr Sodium Chloride (Normal Saline) 70 mls @ 3 mls/sec IV ASDIRECTED [facility] Last Admin: 09/21/19 09:09 Dose: 3 mls/sec Ibuprofen (Motrin) 600 mg PO TID [facility] Last Admin: 09/21/19 13:55 Dose: 600 mg Lactobacillus Rhamnosus (Culturelle) 1 cap PO BID [facility] Last Admin: 09/21/19 08:47 Dose: 1 cap Levalbuterol HCl (Xopenex) 1.25 mg INH Q4H PRN PRN Reason: Shortness of Breath Last Admin: 09/20/19 22:28 Dose: 1.25 mg Lisinopril (Prinivil) 2.5 mg PO BEDTIME [facility] Last Admin: 09/20/19 21:31 Dose: 2.5 mg Lorazepam (Ativan) 0.5 mg IVPUSH Q4H PRN PRN Reason: Nausea/Vomiting Lorazepam (Ativan) 0.5 mg PO Q4H PRN PRN Reason: Anxiety Magnesium Hydroxide (Milk Of Magnesia) 30 ml PO Q12H PRN PRN Reason: Constipation Metoprolol Succinate (Toprol Xl) 25 mg PO BEDTIME [facility] Last Admin: 09/20/19 21:30 Dose: 25 mg Morphine Sulfate (Ms Contin) 15 mg PO BEDTIME [facility] Last Admin: 09/20/19 21:29 Dose: 15 mg Ondansetron HCl (Zofran Odt) 4 mg PO Q6H PRN PRN Reason: Nausea able to take PO Ondansetron HCl (Zofran) 4 mg IV Q6H PRN PRN Reason: Nausea/Vomiting Oxycodone/Acetaminophen (Percocet 325-5 Mg) 1 tab PO QID [facility] Last Admin: 09/21/19 10:16 Dose: 1 tab Pantoprazole Sodium (Protonix) 40 mg PO ACBREAKFAST [facility] Last Admin: 09/21/19 07:27 Dose: 40 mg Anoro Ellipta 62. 5mcg/25mcg Inhaler ( Ptom) 0 each INH DAILYRT [facility] Last Admin: 09/21/19 07:06 Dose: 1 each Senna/Docusate Sodium (Senna Plus) 1 tab PO BID PRN PRN Reason: Constipation Last Admin: 09/20/19 16:49 Dose: 1 tab Simvastatin (Zocor) 20 mg PO BEDTIME [facility] Last Admin: 09/20/19 21:30 Dose: 20 mg Discontinued Medications Sodium Chloride (Normal Saline) 1,000 mls @ 250 mls/hr IV ASDIRECTED [facility] Last Admin: 09/20/19 15:19 Dose: 250 mls/hr Ceftriaxone Sodium 1 gm/ (Sodium Chloride) 50 mls @ 100 mls/hr IV ONETIME ONE Stop: 09/20/19 15:14 Last Admin: 09/20/19 15:19 Dose: 100 mls/hr Iopamidol (Isovue-300 (61%)) 81 ml IV ONETIME ONE Stop: 09/21/19 09:31 Last Admin: 09/21/19 09:08 Dose: 81 ml Iopamidol (Isovue-300 (61%)) 30 ml PO ONETIME ONE Stop: 09/21/19 08:20 Last Admin: 09/21/19 09:09 Dose: 30 ml Lidocaine HCl (Xylocaine 2% Jelly) 10 ml MUCMEM ONETIME ONE Stop: 09/21/19 10:16 Last Admin: 09/21/19 10:19 Dose: 10 ml - Exam Quality Assessment: Supplemental Oxygen General: Alert, Oriented, Cooperative, No Acute Distress Lungs: Normal Respiratory Effort, Rhonchi (Mild upper respiratory) Cardiovascular: Regular Rate, Regular Rhythm GI/Abdominal Exam: Soft, No Distention Extremities: No Pedal Edema. No: Increased Warmth Skin: Warm, Dry Psy/Mental Status: Alert, Normal Affect Sepsis Event Note - Evaluation Sepsis Screening Result: No Definite Risk - Focused Exam Vital Signs: Vital Signs Temp Pulse Resp BP Pulse Ox 09/21/19 14:37 36.4 C 76 18 135/41 L 97 09/21/19 11:00 36.8 C 80 18 133/50 L 98 09/21/19 07:07 85 09/21/19 07:00 36.1 C 83 24 H 150/58 H 96 09/21/19 04:00 35.8 C L 79 24 H 126/50 L 96 Date Exam was Performed: 09/21/19 Time Exam was Performed: 14:59 - Problem List & Annotations (1) Complicated urinary tract infection SNOMED Code(s): 23341285 Code(s): N39.0 - URINARY TRACT INFECTION, SITE NOT SPECIFIED Status: Acute Current Visit: Yes (2) Prostate cancer metastatic to bone SNOMED Code(s): 046835770 Code(s): C61 - MALIGNANT NEOPLASM OF PROSTATE; C79.51 - SECONDARY MALIGNANT NEOPLASM OF BONE Status: Suspected Current Visit: Yes (3) Hypokalemia SNOMED Code(s): 32123287 Code(s): E87.6 - HYPOKALEMIA Status: Acute Current Visit: Yes (4) CAD (coronary artery disease), [place] coronary artery SNOMED Code(s): 492222004 Code(s): I25.10 - ATHSCL HEART DISEASE OF [place] CORONARY ARTERY W/O ANG PCTRS Status: Chronic Current Visit: No Qualifiers: [place] vs. transplanted heart: [place] heart Associated angina: without angina Qualified Code(s): I25.10 - Atherosclerotic heart disease of [place] coronary artery without angina pectoris (5) COPD (chronic obstructive pulmonary disease) SNOMED Code(s): 69934669 Code(s): J44.9 - CHRONIC OBSTRUCTIVE PULMONARY DISEASE, UNSPECIFIED Status : Chronic Current Visit: Yes Qualifiers: COPD type: emphysema Emphysema type: unspecified Qualified Code(s): J43.9 - Emphysema, unspecified (6) Lower urinary tract obstruction SNOMED Code(s): 05457849 Code(s): N13.9 - OBSTRUCTIVE AND REFLUX UROPATHY, UNSPECIFIED Status: Acute Current Visit: Yes - Problem List Review Problem List Initiated/Reviewed/Updated: Yes - My Orders Last 24 Hours: My Active Orders 09/20/19 15:07 Resuscitation Status Routine 09/20/19 16:25 Patient Status [ADT] Routine Intake and Output [RC] QSHIFT Notify Provider Vital Signs [RC] ASDIRECTED Oxygen Therapy [RC] PRN Supplement (Dietary) [Dietary Supplements] [RC] BIDMEALS Up With Assistance [RC] ASDIRECTED VTE/DVT Education [RC] Per Unit Routine Vital Signs [RC] Q4H Acetaminophen [Tylenol] 650 mg PO Q4H PRN Acetaminophen/oxyCODONE [Percocet 325-5 MG] 1 tab PO QID Docusate Sodium/Sennosides [Senna Plus] 1 tab PO BID PRN LORazepam [Ativan] 0.5 mg IVPUSH Q4H PRN Magnesium Hydroxide [Milk of Magnesia] 30 ml PO Q12H PRN NS + KCl 20mEq/L [Normal Saline with 20 mEq KCl] 1,000 ml IV ASDIRECTED Ondansetron [Zofran ODT] 4 mg PO Q6H PRN Ondansetron [Zofran] 4 mg IV Q6H PRN levalbuterol HCL [Xopenex] 1.25 mg INH Q4H PRN 09/20/19 21:00 Budesonide [Pulmicort] 0.5 mg INH BIDRT Gabapentin [Neurontin] 200 mg PO BID Ibuprofen [Motrin] 600 mg PO TID Lactobacillus Rhamnosus GG [Culturelle] 1 cap PO BID Metoprolol Succinate [Toprol XL] 25 mg PO BEDTIME Morphine [MS Contin] 15 mg PO BEDTIME Simvastatin [Zocor] 20 mg PO BEDTIME lisinopriL [Prinivil] 2.5 mg PO BEDTIME 09/20/19 Dinner Regular Diet [DIET] 09/21/19 07:00 PT Evaluation and Treatment [CONS] Routine Patient's Own Medication [Ptom] 0 each INH DAILYRT 09/21/19 07:30 Pantoprazole [ProTONIX] 40 mg PO ACBREAKFAST 09/21/19 09:00 Aspirin [Halfprin] 81 mg PO DAILY Enoxaparin [Lovenox] 40 mg SUBCUT DAILY 09/21/19 09:30 Sodium Chloride 0.9% [Normal Saline] 70 ml IV ASDIRECTED 09/21/19 10:04 Urinary Catheter Assessment [RC] ASDIRECTED LORazepam [Ativan] 0.5 mg PO Q4H PRN 09/21/19 10:15 Insert Felix Catheter [Insert Urinary Catheter] [OM.PC] Q24H 09/21/19 15:00 cefTRIAXone [Rocephin] 1 gm Sodium Chloride 0.9% [Normal Saline] 50 ml IV Q24H 09/21/19 21:00 Gabapentin [Neurontin] 300 mg PO BID 09/22/19 05:00 BASIC METABOLIC PANEL,BMP [CHEM] Timed CBC W/O DIFF,HEMOGRAM [HEME] Timed (1) - Plan Plan:: ASSESSMENT AND PLAN - Complicated urinary tract infection-suspect prostate cancer as discussed below. Difficulty passing urine secondary to enlarged prostate and a Felix catheter was placed this morning. Urine culture is growing a gram-negative jeovany with identification pending. -Antibiotic coverage with ceftriaxone -Continue IV fluids -Follow-up urine culture -Continue Felix catheter, anticipate long-term use Suspected metastatic prostate cancer-PSA level greater than 100 and prostate is enlarged on the CT scan causing obstruction. Diffuse skeletal metastases were noted. Prognosis is poor. Patient is hoping to improve his strength enough that he can make it to a oncology appointment and discuss potential treatment options but is not 100% sure he would take treatment if offered if the potential benefits are not significant. -Outpatient oncology follow-up Right upper lung nodule-spiculated and has the appearance of malignancy. 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 Oxygenation stable with usual amount of home O2. -Supplement oxygen -Continue home medications Coronary artery disease-no active symptoms. -Continue home medications Maintenance issues - - DVT prophylaxis -enoxaparin - GI prophylaxis -PPI - Nutrition -regular with supplements - Felix catheter -placed 09/20 because of urinary obstruction as discussed above Disposition -I would anticipate discharge home with home care after the hospital stay Primary care physician -Dr. Regulo Love M.D.
[2019-09-21] MEDS: cefTRIAXone 1 GM in Sodium Chloride 0.9% 50 ML IV SCH (15:30)
[2019-09-21] MEDS: Magnesium Hydroxide 400 MG/5 ML Susp 30 ML Cup PO PRN (16:28)
[2019-09-21] MEDS: Morphine 15 MG Tab.ER PO SCH (21:29)
[2019-09-21] MEDS: Lisinopril 2.5 MG Tab PO SCH (21:30)
[2019-09-21] MEDS: Gabapentin 300 MG Cap PO SCH (21:31)
[2019-09-21] MEDS: Simvastatin 20 MG Tab PO SCH (21:31)
[2019-09-21] MEDS: Metoprolol Succinate 25 MG Tab.ER PO SCH (21:37)
[2019-09-22] MEDS: Acetaminophen/oxyCODONE 325-5 MG Tab PO SCH ×4 (05:05→22:29)
[2019-09-22] MEDS: Budesonide 0.5 MG/2 ML Neb Susp INH SCH ×2 (07:47→20:27)
[2019-09-22] MEDS: ANORO ELLIPTA 62.5MCG/25MCG INHALER (PTOM) INH SCH (07:48)
[2019-09-22] MEDS: Lactobacillus Rhamnosus GG (Probiotic) Cap PO SCH ×2 (08:11→20:22)
[2019-09-22] MEDS: Aspirin 81 MG Tab.EC PO SCH (08:11)
[2019-09-22] MEDS: Gabapentin 300 MG Cap PO SCH ×2 (08:11→20:16)
[2019-09-22] MEDS: Pantoprazole 40 MG Tab.CR PO SCH (08:12)
[2019-09-22] MEDS: Enoxaparin 40 MG/0.4 ML Syringe SUBCUT SCH (08:12)
[2019-09-22] MEDS: Ibuprofen 600 MG Tab PO SCH ×3 (08:12→20:23)
--- NOTE | 2019-09-22 12:39 | PCM.PN ---
- General Info Date of Service: 09/22/19 Subjective Update: There were no acute events overnight. He reports that his neck pain is tolerable and seems to be a little better today. He does have some numbness in the right arm. He does have some discomfort in the upper middle portion of his back. Appetite is not great and he is only been eating about 1 meal per day. No bowel movement as of yet. Oxygenation stable with his usual 2 L of oxygen. He remains very weak and requires significant assistance. He is not interested in going to a correction for subacute rehab. He is still contemplating potential path for either discussion about treatment or transition to hospice with his suspected metastatic prostate cancer. Functional Status: Reports: Pain Controlled, Tolerating Diet - Review of Systems General: Reports: Weakness, Fatigue - Patient Data Vitals - Most Recent: Last Vital Signs Temp 36.1 C 09/22/19 11:00 Pulse 75 09/22/19 11:00 Resp 18 09/22/19 11:00 BP 127/50 L 09/22/19 11:00 Pulse Ox 95 09/22/19 11:00 Weight - Most Recent: 53.977 kg I&O - Last 24 Hours: Intake & Output 09/21/19 09/22/19 09/22/19 22:59 06:59 14:59 Intake Total 670 240 Output Total 700 Balance 670 -700 240 Lab Results Last 24 Hours: Laboratory Results - last 24 hr 09/22/19 09/22/19 Range/Units 04:50 04:50 WBC 6.2 (4.5-11.0) K/uL RBC 3.45 L (4.30-5.90) M/uL Hgb 9.1 L (12.0-15.0) g/dL Hct 30.6 L (40.0-54.0) % MCV 89 (80-98) fL MCH 26 L (27-31) pg MCHC 30 L (32-36) % Plt Count 236 (150-400) K/uL Sodium 140 (140-148) mmol/L Potassium 4.3 (3.6-5.2) mmol/L Chloride 107 (100-108) mmol/L Carbon Dioxide 27 (21-32) mmol/L Anion Gap 6.3 (5.0-14.0) mmol/L BUN 16 (7-18) mg/dL Creatinine 0.8 (0.8-1.3) mg/dL Est Cr Clr Drug Dosing 61.85 mL/min Estimated GFR (MDRD) > 60 (>60) Glucose 98 (74-106) mg/dL Calcium 8.2 L (8.5-10.1) mg/dL Tavon Results Last 24 Hours: Microbiology 09/20/19 14:30 Urine Culture - Final Urine, Clean Catch Klebsiella Pneumonia Ss Pneumo Med Orders - Current: Current Medications Acetaminophen (Tylenol) 650 mg PO Q4H PRN PRN Reason: Pain (Mild 1-3)/fever Aspirin (Halfprin) 81 mg PO DAILY [facility] Last Admin: 09/22/19 08:11 Dose: 81 mg Budesonide (Pulmicort) 0.5 mg INH BIDRT [facility] Last Admin: 09/22/19 07:47 Dose: 0.5 mg Enoxaparin Sodium (Lovenox) 40 mg SUBCUT DAILY [facility] Last Admin: 09/22/19 08:12 Dose: 40 mg Gabapentin (Neurontin) 300 mg PO BID [facility] Last Admin: 09/22/19 08:11 Dose: 300 mg Ceftriaxone Sodium 1 gm/ (Sodium Chloride) 50 mls @ 100 mls/hr IV Q24H [facility] Stop: 09/22/19 18:00 Last Admin: 09/21/19 15:30 Dose: 100 mls/hr Ibuprofen (Motrin) 600 mg PO TID [facility] Last Admin: 09/22/19 08:12 Dose: 600 mg Lactobacillus Rhamnosus (Culturelle) 1 cap PO BID [facility] Last Admin: 09/22/19 08:11 Dose: 1 cap Levalbuterol HCl (Xopenex) 1.25 mg INH Q4H PRN PRN Reason: Shortness of Breath Last Admin: 09/20/19 22:28 Dose: 1.25 mg Lisinopril (Prinivil) 2.5 mg PO BEDTIME [facility] Last Admin: 09/21/19 21:30 Dose: 2.5 mg Lorazepam (Ativan) 0.5 mg IVPUSH Q4H PRN PRN Reason: Nausea/Vomiting Lorazepam (Ativan) 0.5 mg PO Q4H PRN PRN Reason: Anxiety Magnesium Hydroxide (Milk Of Magnesia) 30 ml PO Q12H PRN PRN Reason: Constipation Last Admin: 09/21/19 16:28 Dose: 30 ml Metoprolol Succinate (Toprol Xl) 25 mg PO BEDTIME [facility] Last Admin: 09/21/19 21:37 Dose: 25 mg Ondansetron HCl (Zofran Odt) 4 mg PO Q6H PRN PRN Reason: Nausea able to take PO Ondansetron HCl (Zofran) 4 mg IV Q6H PRN PRN Reason: Nausea/Vomiting Last Admin: 09/21/19 16:34 Dose: 4 mg Oxycodone/Acetaminophen (Percocet 325-5 Mg) 1 tab PO QID [facility] Last Admin: 09/22/19 09:27 Dose: 1 tab Pantoprazole Sodium (Protonix) 40 mg PO ACBREAKFAST [facility] Last Admin: 09/22/19 08:12 Dose: 40 mg Anoro Ellipta 62. 5mcg/25mcg Inhaler ( Ptom) 0 each INH DAILYRT [facility] Last Admin: 09/22/19 07:48 Dose: 1 each Senna/Docusate Sodium (Senna Plus) 1 tab PO BID PRN PRN Reason: Constipation Last Admin: 09/20/19 16:49 Dose: 1 tab Simvastatin (Zocor) 20 mg PO BEDTIME [facility] Last Admin: 09/21/19 21:31 Dose: 20 mg Discontinued Medications Gabapentin (Neurontin) 200 mg PO BID [facility] Last Admin: 09/21/19 08:47 Dose: 200 mg Sodium Chloride (Normal Saline) 1,000 mls @ 250 mls/hr IV ASDIRECTED [facility] Last Admin: 09/20/19 15:19 Dose: 250 mls/hr Ceftriaxone Sodium 1 gm/ (Sodium Chloride) 50 mls @ 100 mls/hr IV ONETIME ONE Stop: 09/20/19 15:14 Last Admin: 09/20/19 15:19 Dose: 100 mls/hr Potassium Chloride/Sodium Chloride (Normal Saline With 20 Meq Kcl) 1,000 mls @ 125 mls/hr IV ASDIRECTED [facility] Last Admin: 09/20/19 23:48 Dose: 125 mls/hr Sodium Chloride (Normal Saline) 70 mls @ 3 mls/sec IV ASDIRECTED [facility] Last Admin: 09/21/19 09:09 Dose: 3 mls/sec Iopamidol (Isovue-300 (61%)) 81 ml IV ONETIME ONE Stop: 09/21/19 09:31 Last Admin: 09/21/19 09:08 Dose: 81 ml Iopamidol (Isovue-300 (61%)) 30 ml PO ONETIME ONE Stop: 09/21/19 08:20 Last Admin: 09/21/19 09:09 Dose: 30 ml Lidocaine HCl (Xylocaine 2% Jelly) 10 ml MUCMEM ONETIME ONE Stop: 09/21/19 10:16 Last Admin: 09/21/19 10:19 Dose: 10 ml Morphine Sulfate (Ms Contin) 15 mg PO BEDTIME [facility] Last Admin: 09/21/19 21:29 Dose: 15 mg - Exam Quality Assessment: Supplemental Oxygen General: Alert, Oriented, Cooperative, No Acute Distress Lungs: Normal Respiratory Effort Cardiovascular: Regular Rate, Regular Rhythm GI/Abdominal Exam: Soft, No Distention Extremities: No Pedal Edema Psy/Mental Status: Alert, Normal Affect Sepsis Event Note - Evaluation Sepsis Screening Result: No Definite Risk - Focused Exam Vital Signs: Vital Signs Temp Pulse Resp BP Pulse Ox Pulse Ox 09/22/19 11:00 36.1 C 75 18 127/50 L 95 09/22/19 07:49 70 96 09/22/19 07:00 36.2 C 81 16 137/77 96 09/22/19 03:00 36.8 C 78 20 136/59 L 97 Date Exam was Performed: 09/22/19 Time Exam was Performed: 16:39 - Problem List & Annotations (1) Complicated urinary tract infection SNOMED Code(s): 31189825 Code(s): N39.0 - URINARY TRACT INFECTION, SITE NOT SPECIFIED Status: Acute Current Visit: Yes (2) Prostate cancer metastatic to bone SNOMED Code(s): 573726511 Code(s): C61 - MALIGNANT NEOPLASM OF PROSTATE; C79.51 - SECONDARY MALIGNANT NEOPLASM OF BONE Status: Suspected Current Visit: Yes (3) Hypokalemia SNOMED Code(s): 43783661 Code(s): E87.6 - HYPOKALEMIA Status: Acute Current Visit: Yes (4) CAD (coronary artery disease), [place] coronary artery SNOMED Code(s): 108107308 Code(s): I25.10 - ATHSCL HEART DISEASE OF [place] CORONARY ARTERY W/O ANG PCTRS Status: Chronic Current Visit: No Qualifiers: [place] vs. transplanted heart: [place] heart Associated angina: without angina Qualified Code(s): I25.10 - Atherosclerotic heart disease of [place] coronary artery without angina pectoris (5) COPD (chronic obstructive pulmonary disease) SNOMED Code(s): 78154909 Code(s): J44.9 - CHRONIC OBSTRUCTIVE PULMONARY DISEASE, UNSPECIFIED Status : Chronic Current Visit: Yes Qualifiers: COPD type: emphysema Emphysema type: unspecified Qualified Code(s): J43.9 - Emphysema, unspecified (6) [place] urinary tract obstruction SNOMED Code(s): 02799325 Code(s): N13.9 - OBSTRUCTIVE AND REFLUX UROPATHY, UNSPECIFIED Status: Acute Current Visit: Yes - Problem List Review Problem List Initiated/Reviewed/Updated: Yes - My Orders Last 24 Hours: My Active Orders 09/21/19 15:00 cefTRIAXone [Rocephin] 1 gm Sodium Chloride 0.9% [Normal Saline] 50 ml IV Q24H 09/21/19 21:00 Gabapentin [Neurontin] 300 mg PO BID 09/22/19 12:35 dexAMETHasone 8 mg PO ONETIME ONE 09/22/19 12:38 Convert IV to Saline Lock [OM.PC] Routine 09/22/19 21:00 Morphine [MS Contin] 15 mg PO BID 09/23/19 07:30 dexAMETHasone 4 mg PO BIDAC 09/23/19 09:00 Ciprofloxacin [Ciprofloxacin HCl] 500 mg PO BID 09/23/19 10:15 Insert Felix Catheter [Insert Urinary Catheter] [OM.PC] Q24H - Plan Plan:: ASSESSMENT AND PLAN - Complicated urinary tract infection-suspect prostate cancer as discussed below. Doing well since the Felix catheter was placed yesterday. Urine culture grew out Klebsiella. -Antibiotic coverage with ceftriaxone today and transition to oral antibiotics in the morning -Saline lock IV -Continue Felix catheter, anticipate long-term use -Physical therapy for weakness Suspected metastatic prostate cancer-PSA level greater than 100 and prostate is enlarged on the CT scan causing obstruction. Diffuse skeletal metastases were noted. Prognosis is poor. Patient is hoping to improve his strength enough that he can make it to a oncology appointment and discuss potential treatment options but is not 100% sure he would take treatment if offered if the potential benefits are not significant. -Further discussions about goals of care and cancer treatment versus transition to hospice -Outpatient oncology follow-up -Pain control with MS Contin twice daily and as needed oxycodone -Trial of steroids for additional pain control Right upper lung nodule-spiculated and has the appearance of malignancy. 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 Oxygenation stable with usual amount of home O2. -Supplement oxygen -Continue home medications Coronary artery disease-no active symptoms. -Continue home medications Maintenance issues - - DVT prophylaxis -enoxaparin - GI prophylaxis -PPI - Nutrition -regular with supplements - Felix catheter -placed 09/20 because of urinary obstruction as discussed above Disposition -I would anticipate discharge home with home care after the hospital stay. Patient would benefit from subacute rehab given his significant weakness and poor nutritional status but he has been resistant so far. Primary care physician -Dr. Regulo Love M.D.
[2019-09-22] MEDS ORDERED: Dexamethasone 4 MG Tab PO ONE (12:45)
[2019-09-22] MEDS: cefTRIAXone 1 GM in Sodium Chloride 0.9% 50 ML IV SCH (15:43)
[2019-09-22] MEDS: Levalbuterol HCl 1.25 MG/3 ML Neb INH PRN (17:38)
[2019-09-22] MEDS: Magnesium Hydroxide 400 MG/5 ML Susp 30 ML Cup PO PRN (18:25)
[2019-09-22] MEDS: Morphine 15 MG Tab.ER PO SCH (20:17)
[2019-09-22] MEDS: Lisinopril 2.5 MG Tab PO SCH (20:19)
[2019-09-22] MEDS: Metoprolol Succinate 25 MG Tab.ER PO SCH (20:19)
[2019-09-22] MEDS: Simvastatin 20 MG Tab PO SCH (20:21)
[2019-09-23] MEDS: Acetaminophen/oxyCODONE 325-5 MG Tab PO SCH ×4 (05:57→22:32)
[2019-09-23] MEDS: Budesonide 0.5 MG/2 ML Neb Susp INH SCH ×2 (07:39→21:00)
[2019-09-23] MEDS: ANORO ELLIPTA 62.5MCG/25MCG INHALER (PTOM) INH SCH (07:39)
[2019-09-23] MEDS: Pantoprazole 40 MG Tab.CR PO SCH (08:27)
[2019-09-23] MEDS: Dexamethasone 4 MG Tab PO SCH ×2 (08:28→17:03)
[2019-09-23] MEDS: Lactobacillus Rhamnosus GG (Probiotic) Cap PO SCH ×2 (08:28→20:46)
[2019-09-23] MEDS: Ibuprofen 600 MG Tab PO SCH ×3 (08:28→20:46)
[2019-09-23] MEDS: Enoxaparin 40 MG/0.4 ML Syringe SUBCUT SCH (08:28)
[2019-09-23] MEDS: Ciprofloxacin 500 MG Tab PO SCH ×2 (08:29→17:03)
[2019-09-23] MEDS: Aspirin 81 MG Tab.EC PO SCH (08:29)
[2019-09-23] MEDS: Gabapentin 300 MG Cap PO SCH ×2 (08:29→20:46)
[2019-09-23] MEDS: Morphine 15 MG Tab.ER PO SCH ×2 (08:32→20:53)
[2019-09-23] MEDS ORDERED: Magnesium Citrate Solution 296 ML Bottle PO ONE (10:30)
--- NOTE | 2019-09-23 11:08 | PCM.PN ---
- General Info Date of Service: 09/23/19 Subjective Update: No acute events overnight. Overall he has been stable. Pain is stable and tolerable at this point. He continues to have weakness of his right arm and right leg though they may be a little bit better today. Shortness of breath is at baseline. Still has not had a bowel movement. Had a long conversation with Tay and his daughter Shauna today. We discussed potential treatment paths including hospice versus a more aggressive route with rehab and oncology follow- up as an outpatient. At this point he would like a little bit of time to think about it. He was agreeable to transition to a DO NOT RESUSCITATE status given his very grim outlook with widely metastatic prostate cancer. His appetite is not very good. He remains very weak and requires significant assistance. Functional Status: Reports: Pain Controlled - Review of Systems General: Reports: Weakness - Patient Data Vitals - Most Recent: Last Vital Signs Temp 35.6 C L 09/23/19 08:00 Pulse 80 09/23/19 08:00 Resp 24 H 09/23/19 08:00 BP 144/54 H 09/23/19 08:00 Pulse Ox 94 L 09/23/19 08:00 Weight - Most Recent: 56.2 kg I&O - Last 24 Hours: Intake & Output 09/22/19 09/23/19 09/23/19 22:59 06:59 14:59 Intake Total 150 240 Output Total 800 125 Balance -650 -125 240 [place] Results Last 24 Hours: Microbiology 09/20/19 14:30 Urine Culture - Final Urine, Clean Catch Klebsiella Pneumonia Ss Pneumo Med Orders - Current: Current Medications Acetaminophen (Tylenol) 650 mg PO Q4H PRN PRN Reason: Pain (Mild 1-3)/fever Aspirin (Halfprin) 81 mg PO DAILY [facility] Last Admin: 09/23/19 08:29 Dose: 81 mg Budesonide (Pulmicort) 0.5 mg INH BIDRT [facility] Last Admin: 09/23/19 07:39 Dose: 0.5 mg Ciprofloxacin (Ciprofloxacin Hcl) 500 mg PO BIDAC [facility] Last Admin: 09/23/19 08:29 Dose: 500 mg Dexamethasone (Dexamethasone) 4 mg PO BIDMEALS [facility] Last Admin: 09/23/19 08:28 Dose: 4 mg Enoxaparin Sodium (Lovenox) 40 mg SUBCUT DAILY [facility] Last Admin: 09/23/19 08:28 Dose: 40 mg Gabapentin (Neurontin) 300 mg PO BID [facility] Last Admin: 09/23/19 08:29 Dose: 300 mg Ibuprofen (Motrin) 600 mg PO TID [facility] Last Admin: 09/23/19 08:28 Dose: 600 mg Lactobacillus Rhamnosus (Culturelle) 1 cap PO BID [facility] Last Admin: 09/23/19 08:28 Dose: 1 cap Levalbuterol HCl (Xopenex) 1.25 mg INH Q4H PRN PRN Reason: Shortness of Breath Last Admin: 09/22/19 17:38 Dose: 1.25 mg Lisinopril (Prinivil) 2.5 mg PO BEDTIME [facility] Last Admin: 09/22/19 20:19 Dose: 2.5 mg Lorazepam (Ativan) 0.5 mg IVPUSH Q4H PRN PRN Reason: Nausea/Vomiting Lorazepam (Ativan) 0.5 mg PO Q4H PRN PRN Reason: Anxiety Last Admin: 09/23/19 00:12 Dose: 0.5 mg Magnesium Hydroxide (Milk Of Magnesia) 30 ml PO Q12H PRN PRN Reason: Constipation Last Admin: 09/22/19 18:25 Dose: 30 ml Metoprolol Succinate (Toprol Xl) 25 mg PO BEDTIME [facility] Last Admin: 09/22/19 20:19 Dose: 25 mg Morphine Sulfate (Ms Contin) 15 mg PO BID [facility] Last Admin: 09/23/19 08:32 Dose: 15 mg Ondansetron HCl (Zofran Odt) 4 mg PO Q6H PRN PRN Reason: Nausea able to take PO Ondansetron HCl (Zofran) 4 mg IV Q6H PRN PRN Reason: Nausea/Vomiting Last Admin: 09/21/19 16:34 Dose: 4 mg Oxycodone/Acetaminophen (Percocet 325-5 Mg) 1 tab PO QID [facility] Last Admin: 09/23/19 05:57 Dose: 1 tab Pantoprazole Sodium (Protonix) 40 mg PO ACBREAKFAST [facility] Last Admin: 09/23/19 08:27 Dose: 40 mg Anoro Ellipta 62. 5mcg/25mcg Inhaler ( Ptom) 0 each INH DAILYRT [facility] Last Admin: 09/23/19 07:39 Dose: 1 each Senna/Docusate Sodium (Senna Plus) 1 tab PO BID PRN PRN Reason: Constipation Last Admin: 09/22/19 18:25 Dose: 1 tab Simvastatin (Zocor) 20 mg PO BEDTIME [facility] Last Admin: 09/22/19 20:21 Dose: 20 mg Discontinued Medications Dexamethasone (Dexamethasone) 8 mg PO ONETIME ONE Stop: 09/22/19 12:46 Last Admin: 09/22/19 13:54 Dose: 8 mg Gabapentin (Neurontin) 200 mg PO BID [facility] Last Admin: 09/21/19 08:47 Dose: 200 mg Sodium Chloride (Normal Saline) 1,000 mls @ 250 mls/hr IV ASDIRECTED [facility] Last Admin: 09/20/19 15:19 Dose: 250 mls/hr Ceftriaxone Sodium 1 gm/ (Sodium Chloride) 50 mls @ 100 mls/hr IV ONETIME ONE Stop: 09/20/19 15:14 Last Admin: 09/20/19 15:19 Dose: 100 mls/hr Ceftriaxone Sodium 1 gm/ (Sodium Chloride) 50 mls @ 100 mls/hr IV Q24H [facility] Stop: 09/22/19 18:00 Last Admin: 09/22/19 15:43 Dose: 100 mls/hr Potassium Chloride/Sodium Chloride (Normal Saline With 20 Meq Kcl) 1,000 mls @ 125 mls/hr IV ASDIRECTED [facility] Last Admin: 09/20/19 23:48 Dose: 125 mls/hr Sodium Chloride (Normal Saline) 70 mls @ 3 mls/sec IV ASDIRECTED [facility] Last Admin: 09/21/19 09:09 Dose: 3 mls/sec Iopamidol (Isovue-300 (61%)) 81 ml IV ONETIME ONE Stop: 09/21/19 09:31 Last Admin: 09/21/19 09:08 Dose: 81 ml Iopamidol (Isovue-300 (61%)) 30 ml PO ONETIME ONE Stop: 09/21/19 08:20 Last Admin: 09/21/19 09:09 Dose: 30 ml Lidocaine HCl (Xylocaine 2% Jelly) 10 ml MUCMEM ONETIME ONE Stop: 09/21/19 10:16 Last Admin: 09/21/19 10:19 Dose: 10 ml Magnesium Citrate (Citrate Of Magnesia) 296 ml PO ONETIME ONE Stop: 09/23/19 10:31 Morphine Sulfate (Ms Contin) 15 mg PO BEDTIME [facility] Last Admin: 09/21/19 21:29 Dose: 15 mg - Exam Quality Assessment: Supplemental Oxygen General: Alert, Oriented, Cooperative, No Acute Distress Lungs: Normal Respiratory Effort Cardiovascular: Regular Rate, Regular Rhythm GI/Abdominal Exam: Soft, No Distention Extremities: No Pedal Edema Psy/Mental Status: Alert, Normal Affect Sepsis Event Note - Evaluation Sepsis Screening Result: No Definite Risk - Focused Exam Vital Signs: Vital Signs Temp Pulse Resp BP Pulse Ox Pulse Ox 09/23/19 08:00 35.6 C L 80 24 H 144/54 H 94 L 09/23/19 07:40 78 99 09/23/19 04:00 20 09/23/19 00:02 36.5 C 101 H 28 H 149/55 H 84 L Date Exam was Performed: 09/23/19 Time Exam was Performed: 13:39 - Problem List & Annotations (1) Complicated urinary tract infection SNOMED Code(s): 94550090 Code(s): N39.0 - URINARY TRACT INFECTION, SITE NOT SPECIFIED Status: Acute Current Visit: Yes (2) Prostate cancer metastatic to bone SNOMED Code(s): 354938751 Code(s): C61 - MALIGNANT NEOPLASM OF PROSTATE; C79.51 - SECONDARY MALIGNANT NEOPLASM OF BONE Status: Suspected Current Visit: Yes (3) Hypokalemia SNOMED Code(s): 80724929 Code(s): E87.6 - HYPOKALEMIA Status: Acute Current Visit: Yes (4) CAD (coronary artery disease), [place] coronary artery SNOMED Code(s): 999398970 Code(s): I25.10 - ATHSCL HEART DISEASE OF [place] CORONARY ARTERY W/O ANG PCTRS Status: Chronic Current Visit: No Qualifiers: [place] vs. transplanted heart: [place] heart Associated angina: without angina Qualified Code(s): I25.10 - Atherosclerotic heart disease of [place] coronary artery without angina pectoris (5) COPD (chronic obstructive pulmonary disease) SNOMED Code(s): 49115141 Code(s): J44.9 - CHRONIC OBSTRUCTIVE PULMONARY DISEASE, UNSPECIFIED Status : Chronic Current Visit: Yes Qualifiers: COPD type: emphysema Emphysema type: unspecified Qualified Code(s): J43.9 - Emphysema, unspecified (6) Lower urinary tract obstruction SNOMED Code(s): 83470602 Code(s): N13.9 - OBSTRUCTIVE AND REFLUX UROPATHY, UNSPECIFIED Status: Acute Current Visit: Yes - Problem List Review Problem List Initiated/Reviewed/Updated: Yes - My Orders Last 24 Hours: My Active Orders 09/22/19 12:38 Convert IV to Saline Lock [OM.PC] Routine 09/22/19 21:00 Morphine [MS Contin] 15 mg PO BID 09/23/19 07:30 Ciprofloxacin [Ciprofloxacin HCl] 500 mg PO BIDAC 09/23/19 08:00 dexAMETHasone 4 mg PO BIDMEALS 09/23/19 10:15 Insert Felix Catheter [Insert Urinary Catheter] [OM.PC] Q24H 09/23/19 11:06 Resuscitation Status Routine - Plan Plan:: ASSESSMENT AND PLAN - Complicated urinary tract infection-suspect prostate cancer as discussed below. Doing well since the Felix catheter was placed yesterday. Urine culture grew out Klebsiella. -Antibiotic coverage with ciprofloxacin -Saline lock IV -Continue Felix catheter, anticipate long-term use -Physical therapy for weakness Suspected metastatic prostate cancer-PSA level greater than 100 and prostate is enlarged on the CT scan causing obstruction. Diffuse skeletal metastases were noted. Prognosis is poor. Patient is hoping to improve his strength enough that he can make it home. He is contemplating hospice versus a more aggressive care path at this point but is leaning towards hospice. -Further discussions about goals of care and cancer treatment versus transition to hospice -Outpatient oncology follow-up? 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 He is a poor surgical candidate with his advanced cancer and COPD. Steroids were started yesterday. -Continue twice daily dexamethasone -Pain control Right upper lung nodule-spiculated and has the appearance of malignancy. 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 Oxygenation stable with usual amount of home O2. -Supplement oxygen -Continue home medications Coronary artery disease-no active symptoms. -Continue home medications Maintenance issues - - DVT prophylaxis -enoxaparin - GI prophylaxis -PPI - Nutrition -regular with supplements - Felix catheter -placed 09/20 because of urinary obstruction as discussed above Disposition -I would anticipate discharge home with home care versus home with hospice after the hospital stay. Patient would benefit from subacute rehab given his significant weakness and poor nutritional status but he has been resistant so far. Primary care physician -Dr. Regulo Love M.D.
[2019-09-23] MEDS: Lisinopril 2.5 MG Tab PO SCH (20:47)
[2019-09-23] MEDS: Metoprolol Succinate 25 MG Tab.ER PO SCH (20:48)
[2019-09-23] MEDS: Simvastatin 20 MG Tab PO SCH (20:49)
[2019-09-24] MEDS: Acetaminophen/oxyCODONE 325-5 MG Tab PO SCH ×2 (06:22→11:55)
[2019-09-24] MEDS: ANORO ELLIPTA 62.5MCG/25MCG INHALER (PTOM) INH SCH (07:25)
[2019-09-24] MEDS: Budesonide 0.5 MG/2 ML Neb Susp INH SCH ×2 (07:25→21:29)
[2019-09-24] MEDS: Aspirin 81 MG Tab.EC PO SCH (08:16)
[2019-09-24] MEDS: Ciprofloxacin 500 MG Tab PO SCH ×2 (08:16→16:37)
[2019-09-24] MEDS: Enoxaparin 40 MG/0.4 ML Syringe SUBCUT SCH (08:16)
[2019-09-24] MEDS: Dexamethasone 4 MG Tab PO SCH ×2 (08:16→16:37)
[2019-09-24] MEDS: Lactobacillus Rhamnosus GG (Probiotic) Cap PO SCH ×2 (08:16→21:20)
[2019-09-24] MEDS: Pantoprazole 40 MG Tab.CR PO SCH (08:16)
[2019-09-24] MEDS: Gabapentin 300 MG Cap PO SCH ×2 (08:17→21:20)
[2019-09-24] MEDS: Ibuprofen 600 MG Tab PO SCH ×3 (08:17→21:20)
[2019-09-24] MEDS: Morphine 15 MG Tab.ER PO SCH ×2 (08:20→21:29)
--- NOTE | 2019-09-24 11:41 | PCM.PN ---
- General Info Date of Service: 09/24/19 Subjective Update: No acute events overnight. Pain is fairly well controlled. Only notable pain is in the posterior neck which is stable to improved with the changes in his pain regimen. He has not had any fevers. Respiratory status is stable. Right hand is still weak and clumsy but may be a little better today. Right leg is a little stronger today but still very weak. The nurses are having to use a Glenna lift to get him out of bed because he cannot put any weight on the right side. Functional Status: Reports: Pain Controlled, Tolerating Diet - Review of Systems General: Reports: Weakness. Denies: Fever - Patient Data Vitals - Most Recent: Last Vital Signs Temp 35.8 C L 09/24/19 07:53 Pulse 67 09/24/19 07:53 Resp 20 09/24/19 07:53 BP 142/80 H 09/24/19 08:14 Pulse Ox 98 09/24/19 07:53 Weight - Most Recent: 56.2 kg I&O - Last 24 Hours: Intake & Output 09/23/19 09/24/19 09/24/19 22:59 06:59 14:59 Intake Total 240 400 Output Total 175 275 Balance 65 -275 400 Med Orders - Current: Current Medications Acetaminophen (Tylenol) 650 mg PO Q4H PRN PRN Reason: Pain (Mild 1-3)/fever Aspirin (Halfprin) 81 mg PO DAILY [facility] Last Admin: 09/24/19 08:16 Dose: 81 mg Budesonide (Pulmicort) 0.5 mg INH BIDRT [facility] Last Admin: 09/24/19 07:25 Dose: 0.5 mg Ciprofloxacin (Ciprofloxacin Hcl) 500 mg PO BIDAC [facility] Stop: 09/26/19 23:00 Last Admin: 09/24/19 08:16 Dose: 500 mg Dexamethasone (Dexamethasone) 4 mg PO BIDMEALS [facility] Last Admin: 09/24/19 08:16 Dose: 4 mg Enoxaparin Sodium (Lovenox) 40 mg SUBCUT DAILY [facility] Last Admin: 09/24/19 08:16 Dose: 40 mg Gabapentin (Neurontin) 300 mg PO BID [facility] Last Admin: 09/24/19 08:17 Dose: 300 mg Ibuprofen (Motrin) 600 mg PO TID [facility] Last Admin: 09/24/19 08:17 Dose: 600 mg Lactobacillus Rhamnosus (Culturelle) 1 cap PO BID [facility] Last Admin: 09/24/19 08:16 Dose: 1 cap Levalbuterol HCl (Xopenex) 1.25 mg INH Q4H PRN PRN Reason: Shortness of Breath Last Admin: 09/22/19 17:38 Dose: 1.25 mg Lisinopril (Prinivil) 2.5 mg PO BEDTIME [facility] Last Admin: 09/23/19 20:47 Dose: 2.5 mg Lorazepam (Ativan) 0.5 mg IVPUSH Q4H PRN PRN Reason: Nausea/Vomiting Lorazepam (Ativan) 0.5 mg PO Q4H PRN PRN Reason: Anxiety Last Admin: 09/23/19 00:12 Dose: 0.5 mg Magnesium Hydroxide (Milk Of Magnesia) 30 ml PO Q12H PRN PRN Reason: Constipation Last Admin: 09/22/19 18:25 Dose: 30 ml Metoprolol Succinate (Toprol Xl) 25 mg PO BEDTIME [facility] Last Admin: 09/23/19 20:48 Dose: 25 mg Morphine Sulfate (Ms Contin) 15 mg PO BID [facility] Last Admin: 09/24/19 08:20 Dose: 15 mg Ondansetron HCl (Zofran Odt) 4 mg PO Q6H PRN PRN Reason: Nausea able to take PO Ondansetron HCl (Zofran) 4 mg IV Q6H PRN PRN Reason: Nausea/Vomiting Last Admin: 09/21/19 16:34 Dose: 4 mg Pantoprazole Sodium (Protonix) 40 mg PO ACBREAKFAST [facility] Last Admin: 09/24/19 08:16 Dose: 40 mg Anoro Ellipta 62. 5mcg/25mcg Inhaler ( Ptom) 0 each INH DAILYRT [facility] Last Admin: 09/24/19 07:25 Dose: 1 each Senna/Docusate Sodium (Senna Plus) 1 tab PO BID PRN PRN Reason: Constipation Last Admin: 09/22/19 18:25 Dose: 1 tab Simvastatin (Zocor) 20 mg PO BEDTIME [facility] Last Admin: 09/23/19 20:49 Dose: 20 mg Discontinued Medications Dexamethasone (Dexamethasone) 8 mg PO ONETIME ONE Stop: 09/22/19 12:46 Last Admin: 09/22/19 13:54 Dose: 8 mg Gabapentin (Neurontin) 200 mg PO BID [facility] Last Admin: 09/21/19 08:47 Dose: 200 mg Sodium Chloride (Normal Saline) 1,000 mls @ 250 mls/hr IV ASDIRECTED [facility] Last Admin: 09/20/19 15:19 Dose: 250 mls/hr Ceftriaxone Sodium 1 gm/ (Sodium Chloride) 50 mls @ 100 mls/hr IV ONETIME ONE Stop: 09/20/19 15:14 Last Admin: 09/20/19 15:19 Dose: 100 mls/hr Ceftriaxone Sodium 1 gm/ (Sodium Chloride) 50 mls @ 100 mls/hr IV Q24H [facility] Stop: 09/22/19 18:00 Last Admin: 09/22/19 15:43 Dose: 100 mls/hr Potassium Chloride/Sodium Chloride (Normal Saline With 20 Meq Kcl) 1,000 mls @ 125 mls/hr IV ASDIRECTED [facility] Last Admin: 09/20/19 23:48 Dose: 125 mls/hr Sodium Chloride (Normal Saline) 70 mls @ 3 mls/sec IV ASDIRECTED [facility] Last Admin: 09/21/19 09:09 Dose: 3 mls/sec Iopamidol (Isovue-300 (61%)) 81 ml IV ONETIME ONE Stop: 09/21/19 09:31 Last Admin: 09/21/19 09:08 Dose: 81 ml Iopamidol (Isovue-300 (61%)) 30 ml PO ONETIME ONE Stop: 09/21/19 08:20 Last Admin: 09/21/19 09:09 Dose: 30 ml Lidocaine HCl (Xylocaine 2% Jelly) 10 ml MUCMEM ONETIME ONE Stop: 09/21/19 10:16 Last Admin: 09/21/19 10:19 Dose: 10 ml Magnesium Citrate (Citrate Of Magnesia) 296 ml PO ONETIME ONE Stop: 09/23/19 10:31 Last Admin: 09/23/19 11:17 Dose: 296 ml Morphine Sulfate (Ms Contin) 15 mg PO BEDTIME [facility] Last Admin: 09/21/19 21:29 Dose: 15 mg Oxycodone/Acetaminophen (Percocet 325-5 Mg) 1 tab PO QID [facility] Last Admin: 09/24/19 06:22 Dose: 1 tab - Exam Quality Assessment: No: Supplemental Oxygen General: Alert, Oriented, Cooperative, No Acute Distress Lungs: Normal Respiratory Effort Cardiovascular: Regular Rate, Regular Rhythm GI/Abdominal Exam: Soft, Distended (mild) Extremities: No Pedal Edema Psy/Mental Status: Alert, Normal Affect Sepsis Event Note - Evaluation Sepsis Screening Result: No Definite Risk - Focused Exam Vital Signs: Vital Signs Temp Pulse Resp BP Pulse Ox 09/24/19 08:14 142/80 H 09/24/19 07:53 35.8 C L 67 20 98 09/24/19 03:00 36 C L 72 16 150/50 H 95 Date Exam was Performed: 09/24/19 Time Exam was Performed: 12:36 - Problem List & Annotations (1) Complicated urinary tract infection SNOMED Code(s): 30875535 Code(s): N39.0 - URINARY TRACT INFECTION, SITE NOT SPECIFIED Status: Acute Current Visit: Yes (2) Prostate cancer metastatic to bone SNOMED Code(s): 401008246 Code(s): C61 - MALIGNANT NEOPLASM OF PROSTATE; C79.51 - SECONDARY MALIGNANT NEOPLASM OF BONE Status: Suspected Current Visit: Yes (3) Hypokalemia SNOMED Code(s): 45232785 Code(s): E87.6 - HYPOKALEMIA Status: Acute Current Visit: Yes (4) CAD (coronary artery disease), [place] coronary artery SNOMED Code(s): 039994907 Code(s): I25.10 - ATHSCL HEART DISEASE OF [place] CORONARY ARTERY W/O ANG PCTRS Status: Chronic Current Visit: No Qualifiers: [place] vs. transplanted heart: [place] heart Associated angina: without angina Qualified Code(s): I25.10 - Atherosclerotic heart disease of [place] coronary artery without angina pectoris (5) COPD (chronic obstructive pulmonary disease) SNOMED Code(s): 98210079 Code(s): J44.9 - CHRONIC OBSTRUCTIVE PULMONARY DISEASE, UNSPECIFIED Status : Chronic Current Visit: Yes Qualifiers: COPD type: emphysema Emphysema type: unspecified Qualified Code(s): J43.9 - Emphysema, unspecified (6) Lower urinary tract obstruction SNOMED Code(s): 90679196 Code(s): N13.9 - OBSTRUCTIVE AND REFLUX UROPATHY, UNSPECIFIED Status: Acute Current Visit: Yes (7) Stenosis of cervical spine with myelopathy SNOMED Code(s): 14194709 Code(s): M48.02 - SPINAL STENOSIS, CERVICAL REGION; G99.2 - MYELOPATHY IN DISEASES CLASSIFIED ELSEWHERE Status: Acute Current Visit: Yes - Problem List Review Problem List Initiated/Reviewed/Updated: Yes - My Orders Last 24 Hours: My Active Orders 09/23/19 11:06 Resuscitation Status Routine 09/24/19 11:37 bisacodyL [Dulcolax] 10 mg RECTAL ONETIME ONE 09/24/19 11:40 Up to Chair [RC] QID Acetaminophen/oxyCODONE [Percocet 325-5 MG] 1 tab PO Q4H PRN 09/25/19 05:00 BASIC METABOLIC PANEL,BMP [CHEM] Timed CBC W/O DIFF,HEMOGRAM [HEME] Timed (1) 09/25/19 10:15 Insert Felix Catheter [Insert Urinary Catheter] [OM.PC] Q24H - Plan Plan:: ASSESSMENT AND PLAN - Complicated urinary tract infection-suspect prostate cancer as discussed below. Doing well since the Felix catheter was placed. Urine culture grew out Klebsiella. -Antibiotic coverage with ciprofloxacin for total of 7 days -Saline lock IV -Continue Felix catheter, anticipate long-term use -Physical therapy for weakness Suspected metastatic prostate cancer-PSA level greater than 100 and prostate is enlarged on the CT scan causing obstruction. Diffuse skeletal metastases were noted. Prognosis is poor. Patient is hoping to improve his strength enough that he can make it home. He is contemplating hospice versus a more aggressive care path at this point but is leaning towards hospice. -Further discussions about goals of care and cancer treatment versus transition to hospice -Outpatient oncology follow-up? 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 He is a poor surgical candidate with his advanced cancer and COPD. He is on dexamethasone and seems to be moving a little better but still extremely weak and unable to bear any weight. -Continue twice daily dexamethasone -Pain control Right upper lung nodule-spiculated and has the appearance of malignancy. 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 Oxygenation stable with usual amount of home O2. -Supplement oxygen -Continue home medications Coronary artery disease-no active symptoms. -Continue home medications Maintenance issues - - DVT prophylaxis -enoxaparin - GI prophylaxis -PPI - Nutrition -regular with supplements - Felix catheter -placed 09/20 because of urinary obstruction as discussed above Disposition -I would anticipate discharge home with home care versus home with hospice after the hospital stay. Patient would benefit from subacute rehab given his significant weakness and poor nutritional status but he has been resistant so far. Primary care physician -Dr. Regulo Love M.D.
[2019-09-24] MEDS ORDERED: Bisacodyl 10 MG Supp RECTAL ONE (13:00)
[2019-09-24] MEDS: Ondansetron 4 MG Tab.DIS PO PRN (14:10)
[2019-09-24] MEDS: Acetaminophen/oxyCODONE 325-5 MG Tab PO PRN (16:36)
[2019-09-24] MEDS: Lisinopril 2.5 MG Tab PO SCH (21:21)
[2019-09-24] MEDS: Metoprolol Succinate 25 MG Tab.ER PO SCH (21:22)
[2019-09-24] MEDS: Simvastatin 20 MG Tab PO SCH (21:23)
[2019-09-25] MEDS: Acetaminophen/oxyCODONE 325-5 MG Tab PO PRN ×3 (04:30→23:39)
[2019-09-25] MEDS: ANORO ELLIPTA 62.5MCG/25MCG INHALER (PTOM) INH SCH (07:15)
[2019-09-25] MEDS: Budesonide 0.5 MG/2 ML Neb Susp INH SCH ×2 (07:15→21:11)
[2019-09-25] MEDS: Pantoprazole 40 MG Tab.CR PO SCH (08:31)
[2019-09-25] MEDS: Ciprofloxacin 500 MG Tab PO SCH ×2 (08:31→16:25)
[2019-09-25] MEDS: Dexamethasone 4 MG Tab PO SCH ×2 (08:31→17:40)
[2019-09-25] MEDS: Lactobacillus Rhamnosus GG (Probiotic) Cap PO SCH ×2 (08:32→21:05)
[2019-09-25] MEDS: Enoxaparin 40 MG/0.4 ML Syringe SUBCUT SCH (08:32)
[2019-09-25] MEDS: Ibuprofen 600 MG Tab PO SCH ×3 (08:32→21:05)
[2019-09-25] MEDS: Gabapentin 300 MG Cap PO SCH ×2 (08:32→21:06)
[2019-09-25] MEDS: Aspirin 81 MG Tab.EC PO SCH (08:32)
[2019-09-25] MEDS: Morphine 15 MG Tab.ER PO SCH ×2 (08:34→21:11)
--- NOTE | 2019-09-25 11:08 | PCM.PN ---
- General Info Date of Service: 09/25/19 Subjective Update: There were no acute events overnight. He says in general he feels fairly well. Pain is fairly well controlled. Shortness of breath is at baseline. Still very weak in both hands as well as his right leg. He thinks he is able to move the left hand a little bit better today. He has not had any fevers. We did talk about his thoughts concerning discharge plan. At this time he very much wants to go home and is leaning towards hospice. He is going to talk to his kids today to see how much care they can provide to see if this is a feasible option. He is not excited about going to the alf. Functional Status: Reports: Pain Controlled, Tolerating Diet - Review of Systems General: Reports: Weakness. Denies: Fever Musculoskeletal: Reports: Neck Pain Neurological: Reports: Weakness - Patient Data Vitals - Most Recent: Last Vital Signs Temp 35.6 C L 09/25/19 08:03 Pulse 78 09/25/19 08:03 Resp 20 09/25/19 08:03 BP 118/60 09/25/19 08:03 Pulse Ox 93 L 09/25/19 08:03 Weight - Most Recent: 56.2 kg I&O - Last 24 Hours: Intake & Output 09/24/19 09/25/19 09/25/19 22:59 06:59 14:59 Intake Total 540 240 Output Total 350 450 Balance 190 -450 240 Lab Results Last 24 Hours: Laboratory Results - last 24 hr 09/25/19 09/25/19 Range/Units 04:00 04:00 WBC 11.2 H (4.5-11.0) K/uL RBC 3.65 L (4.30-5.90) M/uL Hgb 10.0 L (12.0-15.0) g/dL Hct 32.2 L (40.0-54.0) % MCV 88 (80-98) fL MCH 27 (27-31) pg MCHC 31 L (32-36) % Plt Count 363 (150-400) K/uL Sodium 137 L (140-148) mmol/L Potassium 5.0 (3.6-5.2) mmol/L Chloride 104 (100-108) mmol/L Carbon Dioxide 30 (21-32) mmol/L Anion Gap 8.0 (5.0-14.0) mmol/L BUN 27 H D (7-18) mg/dL Creatinine 0.8 (0.8-1.3) mg/dL Est Cr Clr Drug Dosing 64.40 mL/min Estimated GFR (MDRD) > 60 (>60) Glucose 135 H (74-106) mg/dL Calcium 8.1 L (8.5-10.1) mg/dL Med Orders - Current: Current Medications Acetaminophen (Tylenol) 650 mg PO Q4H PRN PRN Reason: Pain (Mild 1-3)/fever Aspirin (Halfprin) 81 mg PO DAILY [facility] Last Admin: 09/25/19 08:32 Dose: 81 mg Budesonide (Pulmicort) 0.5 mg INH BIDRT [facility] Last Admin: 09/25/19 07:15 Dose: 0.5 mg Ciprofloxacin (Ciprofloxacin Hcl) 500 mg PO BIDAC [facility] Stop: 09/26/19 23:00 Last Admin: 09/25/19 08:31 Dose: 500 mg Dexamethasone (Dexamethasone) 4 mg PO BIDMEALS [facility] Last Admin: 09/25/19 08:31 Dose: 4 mg Enoxaparin Sodium (Lovenox) 40 mg SUBCUT DAILY [facility] Last Admin: 09/25/19 08:32 Dose: 40 mg Gabapentin (Neurontin) 300 mg PO BID [facility] Last Admin: 09/25/19 08:32 Dose: 300 mg Ibuprofen (Motrin) 600 mg PO TID [facility] Last Admin: 09/25/19 08:32 Dose: 600 mg Lactobacillus Rhamnosus (Culturelle) 1 cap PO BID [facility] Last Admin: 09/25/19 08:32 Dose: 1 cap Levalbuterol HCl (Xopenex) 1.25 mg INH Q4H PRN PRN Reason: Shortness of Breath Last Admin: 09/22/19 17:38 Dose: 1.25 mg Lisinopril (Prinivil) 2.5 mg PO BEDTIME [facility] Last Admin: 09/24/19 21:21 Dose: 2.5 mg Lorazepam (Ativan) 0.5 mg IVPUSH Q4H PRN PRN Reason: Nausea/Vomiting Lorazepam (Ativan) 0.5 mg PO Q4H PRN PRN Reason: Anxiety Last Admin: 09/23/19 00:12 Dose: 0.5 mg Magnesium Hydroxide (Milk Of Magnesia) 30 ml PO Q12H PRN PRN Reason: Constipation Last Admin: 09/22/19 18:25 Dose: 30 ml Metoprolol Succinate (Toprol Xl) 25 mg PO BEDTIME [facility] Last Admin: 09/24/19 21:22 Dose: 25 mg Morphine Sulfate (Ms Contin) 15 mg PO BID [facility] Last Admin: 09/25/19 08:34 Dose: 15 mg Ondansetron HCl (Zofran Odt) 4 mg PO Q6H PRN PRN Reason: Nausea able to take PO Last Admin: 09/24/19 14:10 Dose: 4 mg Ondansetron HCl (Zofran) 4 mg IV Q6H PRN PRN Reason: Nausea/Vomiting Last Admin: 09/21/19 16:34 Dose: 4 mg Oxycodone/Acetaminophen (Percocet 325-5 Mg) 1 tab PO Q4H PRN PRN Reason: Pain (moderate 4-6) Last Admin: 09/25/19 04:30 Dose: 1 tab Pantoprazole Sodium (Protonix) 40 mg PO ACBREAKFAST [facility] Last Admin: 09/25/19 08:31 Dose: 40 mg Anoro Ellipta 62. 5mcg/25mcg Inhaler ( Ptom) 0 each INH DAILYRT [facility] Last Admin: 09/25/19 07:15 Dose: 1 each Senna/Docusate Sodium (Senna Plus) 1 tab PO BID PRN PRN Reason: Constipation Last Admin: 09/22/19 18:25 Dose: 1 tab Simvastatin (Zocor) 20 mg PO BEDTIME [facility] Last Admin: 09/24/19 21:23 Dose: 20 mg Discontinued Medications Bisacodyl (Dulcolax) 10 mg RECTAL ONETIME ONE Stop: 09/24/19 13:01 Last Admin: 09/24/19 13:23 Dose: 10 mg Dexamethasone (Dexamethasone) 8 mg PO ONETIME ONE Stop: 09/22/19 12:46 Last Admin: 09/22/19 13:54 Dose: 8 mg Gabapentin (Neurontin) 200 mg PO BID [facility] Last Admin: 09/21/19 08:47 Dose: 200 mg Sodium Chloride (Normal Saline) 1,000 mls @ 250 mls/hr IV ASDIRECTED [facility] Last Admin: 09/20/19 15:19 Dose: 250 mls/hr Ceftriaxone Sodium 1 gm/ (Sodium Chloride) 50 mls @ 100 mls/hr IV ONETIME ONE Stop: 09/20/19 15:14 Last Admin: 09/20/19 15:19 Dose: 100 mls/hr Ceftriaxone Sodium 1 gm/ (Sodium Chloride) 50 mls @ 100 mls/hr IV Q24H [facility] Stop: 09/22/19 18:00 Last Admin: 09/22/19 15:43 Dose: 100 mls/hr Potassium Chloride/Sodium Chloride (Normal Saline With 20 Meq Kcl) 1,000 mls @ 125 mls/hr IV ASDIRECTED [facility] Last Admin: 09/20/19 23:48 Dose: 125 mls/hr Sodium Chloride (Normal Saline) 70 mls @ 3 mls/sec IV ASDIRECTED [facility] Last Admin: 09/21/19 09:09 Dose: 3 mls/sec Iopamidol (Isovue-300 (61%)) 81 ml IV ONETIME ONE Stop: 09/21/19 09:31 Last Admin: 09/21/19 09:08 Dose: 81 ml Iopamidol (Isovue-300 (61%)) 30 ml PO ONETIME ONE Stop: 09/21/19 08:20 Last Admin: 09/21/19 09:09 Dose: 30 ml Lidocaine HCl (Xylocaine 2% Jelly) 10 ml MUCMEM ONETIME ONE Stop: 09/21/19 10:16 Last Admin: 09/21/19 10:19 Dose: 10 ml Magnesium Citrate (Citrate Of Magnesia) 296 ml PO ONETIME ONE Stop: 09/23/19 10:31 Last Admin: 09/23/19 11:17 Dose: 296 ml Morphine Sulfate (Ms Contin) 15 mg PO BEDTIME [facility] Last Admin: 09/21/19 21:29 Dose: 15 mg Oxycodone/Acetaminophen (Percocet 325-5 Mg) 1 tab PO QID [facility] Last Admin: 09/24/19 11:55 Dose: Not Given - Exam Quality Assessment: Supplemental Oxygen General: Alert, Oriented, Cooperative, No Acute Distress Lungs: Normal Respiratory Effort Cardiovascular: Regular Rate, Regular Rhythm GI/Abdominal Exam: Soft, No Distention Extremities: No Pedal Edema Skin: Warm, Dry Psy/Mental Status: Alert, Normal Affect Sepsis Event Note - Evaluation Sepsis Screening Result: No Definite Risk - Focused Exam Vital Signs: Vital Signs Temp Pulse Resp BP Pulse Ox 09/25/19 08:03 35.6 C L 78 20 118/60 93 L 09/25/19 02:32 36.5 C 59 L 18 110/60 98 Date Exam was Performed: 09/25/19 Time Exam was Performed: 13:37 - Problem List & Annotations (1) Complicated urinary tract infection SNOMED Code(s): 05052206 Code(s): N39.0 - URINARY TRACT INFECTION, SITE NOT SPECIFIED Status: Acute Current Visit: Yes (2) Prostate cancer metastatic to bone SNOMED Code(s): 482419137 Code(s): C61 - MALIGNANT NEOPLASM OF PROSTATE; C79.51 - SECONDARY MALIGNANT NEOPLASM OF BONE Status: Suspected Current Visit: Yes (3) Hypokalemia SNOMED Code(s): 05695542 Code(s): E87.6 - HYPOKALEMIA Status: Acute Current Visit: Yes (4) CAD (coronary artery disease), [place] coronary artery SNOMED Code(s): 938063105 Code(s): I25.10 - ATHSCL HEART DISEASE OF [place] CORONARY ARTERY W/O ANG PCTRS Status: Chronic Current Visit: No Qualifiers: [place] vs. transplanted heart: [place] heart Associated angina: without angina Qualified Code(s): I25.10 - Atherosclerotic heart disease of [place] coronary artery without angina pectoris (5) COPD (chronic obstructive pulmonary disease) SNOMED Code(s): 50549332 Code(s): J44.9 - CHRONIC OBSTRUCTIVE PULMONARY DISEASE, UNSPECIFIED Status : Chronic Current Visit: Yes Qualifiers: COPD type: emphysema Emphysema type: unspecified Qualified Code(s): J43.9 - Emphysema, unspecified (6) Lower urinary tract obstruction SNOMED Code(s): 93686388 Code(s): N13.9 - OBSTRUCTIVE AND REFLUX UROPATHY, UNSPECIFIED Status: Acute Current Visit: Yes (7) Stenosis of cervical spine with myelopathy SNOMED Code(s): 15663963 Code(s): M48.02 - SPINAL STENOSIS, CERVICAL REGION; G99.2 - MYELOPATHY IN DISEASES CLASSIFIED ELSEWHERE Status: Acute Current Visit: Yes - Problem List Review Problem List Initiated/Reviewed/Updated: Yes - My Orders Last 24 Hours: My Active Orders 09/24/19 11:40 Up to Chair [RC] QID Acetaminophen/oxyCODONE [Percocet 325-5 MG] 1 tab PO Q4H PRN 09/26/19 10:15 Insert Felix Catheter [Insert Urinary Catheter] [OM.PC] Q24H - Plan Plan:: ASSESSMENT AND PLAN - Complicated urinary tract infection-suspect prostate cancer as discussed below. Doing well since the Felix catheter was placed. Urine culture grew out Klebsiella. -Antibiotic coverage with ciprofloxacin for total of 7 days -Saline lock IV -Continue Felix catheter, anticipate long-term use -Physical therapy for weakness Suspected metastatic prostate cancer-PSA level greater than 100 and prostate is enlarged on the CT scan causing obstruction. Diffuse skeletal metastases were noted. Prognosis is poor. Patient is hoping to improve his strength enough that he can make it home. He is contemplating hospice versus a more aggressive care path at this point but is leaning towards hospice. 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 He is a poor surgical candidate with his advanced cancer and COPD. He is on dexamethasone and seems to be moving a little better but still extremely weak and unable to bear any weight. -Continue twice daily dexamethasone -Pain control Right upper lung nodule-spiculated and has the appearance of malignancy. 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 Oxygenation stable with usual amount of home O2. -Supplement oxygen -Continue home medications Coronary artery disease-no active symptoms. -Continue home medications Maintenance issues - - DVT prophylaxis -enoxaparin - GI prophylaxis -PPI - Nutrition -regular with supplements - Felix catheter -placed 09/20 because of urinary obstruction as discussed above Disposition -I would anticipate discharge home with home care versus home with hospice after the hospital stay. Patient would benefit from subacute rehab given his significant weakness and poor nutritional status but he has been resistant so far. Primary care physician -Dr. Regulo Love M.D.
[2019-09-25] MEDS: Lisinopril 2.5 MG Tab PO SCH (21:07)
[2019-09-25] MEDS: Metoprolol Succinate 25 MG Tab.ER PO SCH (21:07)
[2019-09-25] MEDS: Simvastatin 20 MG Tab PO SCH (21:08)
[2019-09-26] MEDS: Budesonide 0.5 MG/2 ML Neb Susp INH SCH ×2 (07:23→20:47)
[2019-09-26] MEDS: ANORO ELLIPTA 62.5MCG/25MCG INHALER (PTOM) INH SCH (07:24)
[2019-09-26] MEDS: Pantoprazole 40 MG Tab.CR PO SCH (08:33)
[2019-09-26] MEDS: Morphine 15 MG Tab.ER PO SCH ×2 (08:39→21:02)
[2019-09-26] MEDS: Ibuprofen 600 MG Tab PO SCH ×3 (08:41→20:37)
[2019-09-26] MEDS: Gabapentin 300 MG Cap PO SCH ×2 (08:42→20:38)
[2019-09-26] MEDS: Ciprofloxacin 500 MG Tab PO SCH ×2 (08:45→15:57)
[2019-09-26] MEDS: Dexamethasone 4 MG Tab PO SCH ×2 (08:45→16:01)
[2019-09-26] MEDS: Enoxaparin 40 MG/0.4 ML Syringe SUBCUT SCH (08:46)
[2019-09-26] MEDS: Lactobacillus Rhamnosus GG (Probiotic) Cap PO SCH ×2 (08:46→20:38)
[2019-09-26] MEDS: Aspirin 81 MG Tab.EC PO SCH (08:46)
[2019-09-26] MEDS: Morphine 10 MG/0.5 ML Oral Syringe BUCCAL PRN ×4 (11:33→22:05)
--- NOTE | 2019-09-26 12:52 | PCM.PN ---
- General Info Date of Service: 09/26/19 Subjective Update: Mr. Triplett continues to experience neck and lower back pain. Long-acting morphine has helped but he does not feel as though it is adequately controlled yet. Continues to lose significant function and use of his arms as well as his right leg. We did have a phone call with his daughter when I was in the room. Mr. Triplett wishes to be discharged home with hospice care, family is in agreement and feel that they would be able to provide the care he needs at home. - Review of Systems General: Reports: Weakness, Fatigue, Malaise. Denies: Fever Pulmonary: Reports: Shortness of Breath, Cough, Wheezing. Denies: Pleuritic Chest Pain, Sputum, Hemoptysis Cardiovascular: Reports: Dyspnea on Exertion. Denies: Chest Pain, Palpitations , Orthopnea, PND, Edema, Lightheadedness Gastrointestinal: Reports: No Symptoms Musculoskeletal: Reports: Neck Pain, Back Pain - Patient Data Vitals - Most Recent: Last Vital Signs Temp 96.4 F L 09/26/19 10:49 Pulse 58 L 09/26/19 10:49 Resp 20 09/26/19 10:49 BP 135/50 L 09/26/19 10:49 Pulse Ox 96 09/26/19 10:49 Weight - Most Recent: 123 lb 14.397 oz I&O - Last 24 Hours: Intake & Output 09/25/19 09/26/19 09/26/19 22:59 06:59 14:59 Intake Total 360 Output Total 325 525 Balance 35 -525 Med Orders - Current: Current Medications Acetaminophen (Tylenol) 650 mg PO Q4H PRN PRN Reason: Pain (Mild 1-3)/fever Aspirin (Halfprin) 81 mg PO DAILY [facility] Last Admin: 09/26/19 08:46 Dose: 81 mg Budesonide (Pulmicort) 0.5 mg INH BIDRT [facility] Last Admin: 09/26/19 07:23 Dose: 0.5 mg Ciprofloxacin (Ciprofloxacin Hcl) 500 mg PO BIDAC [facility] Stop: 09/26/19 23:00 Last Admin: 09/26/19 08:45 Dose: 500 mg Dexamethasone (Dexamethasone) 4 mg PO BIDMEALS [facility] Last Admin: 09/26/19 08:45 Dose: 4 mg Enoxaparin Sodium (Lovenox) 40 mg SUBCUT DAILY [facility] Last Admin: 09/26/19 08:46 Dose: 40 mg Gabapentin (Neurontin) 300 mg PO BID [facility] Last Admin: 09/26/19 08:42 Dose: 300 mg Ibuprofen (Motrin) 600 mg PO TID [facility] Last Admin: 09/26/19 08:41 Dose: 600 mg Lactobacillus Rhamnosus (Culturelle) 1 cap PO BID [facility] Last Admin: 09/26/19 08:46 Dose: 1 cap Levalbuterol HCl (Xopenex) 1.25 mg INH Q4H PRN PRN Reason: Shortness of Breath Last Admin: 09/22/19 17:38 Dose: 1.25 mg Lisinopril (Prinivil) 2.5 mg PO BEDTIME [facility] Last Admin: 09/25/19 21:07 Dose: 2.5 mg Lorazepam (Ativan) 0.5 mg IVPUSH Q4H PRN PRN Reason: Nausea/Vomiting Lorazepam (Ativan) 0.5 mg PO Q4H PRN PRN Reason: Anxiety Last Admin: 09/23/19 00:12 Dose: 0.5 mg Magnesium Hydroxide (Milk Of Magnesia) 30 ml PO Q12H PRN PRN Reason: Constipation Last Admin: 09/22/19 18:25 Dose: 30 ml Metoprolol Succinate (Toprol Xl) 25 mg PO BEDTIME [facility] Last Admin: 09/25/19 21:07 Dose: 25 mg Morphine Sulfate (Morphine 10 Mg/0.5 Ml Oral Syringe) 5 mg BUCCAL Q1H PRN PRN Reason: Pain/DYSPNEA Last Admin: 09/26/19 11:33 Dose: 5 mg Morphine Sulfate (Ms Contin) 15 mg PO Q8H [facility] Morphine Sulfate (Ms Contin) 15 mg PO ONETIME ONE Stop: 09/26/19 15:01 Ondansetron HCl (Zofran Odt) 4 mg PO Q6H PRN PRN Reason: Nausea able to take PO Last Admin: 09/24/19 14:10 Dose: 4 mg Ondansetron HCl (Zofran) 4 mg IV Q6H PRN PRN Reason: Nausea/Vomiting Last Admin: 09/21/19 16:34 Dose: 4 mg Pantoprazole Sodium (Protonix) 40 mg PO ACBREAKFAST [facility] Last Admin: 09/26/19 08:33 Dose: 40 mg Anoro Ellipta 62. 5mcg/25mcg Inhaler ( Ptom) 0 each INH DAILYRT [facility] Last Admin: 09/26/19 07:24 Dose: 1 each Senna/Docusate Sodium (Senna Plus) 1 tab PO BID PRN PRN Reason: Constipation Last Admin: 09/22/19 18:25 Dose: 1 tab Simvastatin (Zocor) 20 mg PO BEDTIME [facility] Last Admin: 09/25/19 21:08 Dose: 20 mg Discontinued Medications Bisacodyl (Dulcolax) 10 mg RECTAL ONETIME ONE Stop: 09/24/19 13:01 Last Admin: 09/24/19 13:23 Dose: 10 mg Dexamethasone (Dexamethasone) 8 mg PO ONETIME ONE Stop: 09/22/19 12:46 Last Admin: 09/22/19 13:54 Dose: 8 mg Gabapentin (Neurontin) 200 mg PO BID [facility] Last Admin: 09/21/19 08:47 Dose: 200 mg Sodium Chloride (Normal Saline) 1,000 mls @ 250 mls/hr IV ASDIRECTED [facility] Last Admin: 09/20/19 15:19 Dose: 250 mls/hr Ceftriaxone Sodium 1 gm/ (Sodium Chloride) 50 mls @ 100 mls/hr IV ONETIME ONE Stop: 09/20/19 15:14 Last Admin: 09/20/19 15:19 Dose: 100 mls/hr Ceftriaxone Sodium 1 gm/ (Sodium Chloride) 50 mls @ 100 mls/hr IV Q24H [facility] Stop: 09/22/19 18:00 Last Admin: 09/22/19 15:43 Dose: 100 mls/hr Potassium Chloride/Sodium Chloride (Normal Saline With 20 Meq Kcl) 1,000 mls @ 125 mls/hr IV ASDIRECTED [facility] Last Admin: 09/20/19 23:48 Dose: 125 mls/hr Sodium Chloride (Normal Saline) 70 mls @ 3 mls/sec IV ASDIRECTED [facility] Last Admin: 09/21/19 09:09 Dose: 3 mls/sec Iopamidol (Isovue-300 (61%)) 81 ml IV ONETIME ONE Stop: 09/21/19 09:31 Last Admin: 09/21/19 09:08 Dose: 81 ml Iopamidol (Isovue-300 (61%)) 30 ml PO ONETIME ONE Stop: 09/21/19 08:20 Last Admin: 09/21/19 09:09 Dose: 30 ml Lidocaine HCl (Xylocaine 2% Jelly) 10 ml MUCMEM ONETIME ONE Stop: 09/21/19 10:16 Last Admin: 09/21/19 10:19 Dose: 10 ml Magnesium Citrate (Citrate Of Magnesia) 296 ml PO ONETIME ONE Stop: 09/23/19 10:31 Last Admin: 09/23/19 11:17 Dose: 296 ml Morphine Sulfate (Ms Contin) 15 mg PO BEDTIME [facility] Last Admin: 09/21/19 21:29 Dose: 15 mg Morphine Sulfate (Ms Contin) 15 mg PO BID [facility] Last Admin: 09/26/19 08:39 Dose: 15 mg Oxycodone/Acetaminophen (Percocet 325-5 Mg) 1 tab PO QID [facility] Last Admin: 09/24/19 11:55 Dose: Not Given Oxycodone/Acetaminophen (Percocet 325-5 Mg) 1 tab PO Q4H PRN PRN Reason: Pain (moderate 4-6) Last Admin: 09/25/19 23:39 Dose: 1 tab - Exam Quality Assessment: Supplemental Oxygen, DVT Prophylaxis General: Alert, Oriented, Cooperative, Moderate Distress Lungs: Decreased Breath Sounds, Wheezing. No: Crackles, Rales, Rhonchi Cardiovascular: Regular Rate, Regular Rhythm, No Murmurs GI/Abdominal Exam: Soft, Non-Tender, No Organomegaly, No Distention Extremities: Non-Tender, No Pedal Edema Sepsis Event Note - Evaluation Sepsis Screening Result: No Definite Risk - Focused Exam Vital Signs: Vital Signs Temp Pulse Pulse Resp BP Pulse Ox 09/26/19 10:49 96.4 F L 58 L 20 135/50 L 96 09/26/19 07:54 60 60 09/26/19 07:00 97.2 F 58 L 20 135/65 98 09/26/19 04:00 96.4 F L 64 20 130/60 91 L Date Exam was Performed: 09/26/19 Time Exam was Performed: 12:48 - Problem List Review Problem List Initiated/Reviewed/Updated: Yes - My Orders Last 24 Hours: My Active Orders 09/26/19 10:41 Morphine [Morphine 10 MG/0.5 ML Oral Syringe] 5 mg BUCCAL Q1H PRN 09/26/19 15:00 Morphine [MS Contin] 15 mg PO ONETIME ONE 09/26/19 22:00 Morphine [MS Contin] 15 mg PO Q8H - Plan Plan:: ASSESSMENT AND PLAN - Complicated urinary tract infection-suspect prostate cancer as discussed below. Doing well since the Felix catheter was placed. Urine culture grew out Klebsiella. -Antibiotic coverage with ciprofloxacin for total of 7 days -Saline lock IV -Continue Felix catheter, anticipate long-term use -Physical therapy for weakness Suspected metastatic prostate cancer-PSA level greater than 100 and prostate is enlarged on the CT scan causing obstruction. Diffuse skeletal metastases were noted. Prognosis is poor. Plan is for discharged home with hospice care - Contin 15 mg p.o. every 8 hours -Morphine 5 mg p.o. 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 He is a poor surgical candidate with his advanced cancer and COPD. He is on dexamethasone and seems to be moving a little better but still extremely weak and unable to bear any weight. -Continue twice daily dexamethasone -Pain control Right upper lung nodule-spiculated and has the appearance of malignancy. 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 Oxygenation stable with usual amount of home O2. -Supplement oxygen -Continue home medications Coronary artery disease-no active symptoms. -Continue home medications Maintenance issues - - DVT prophylaxis -enoxaparin - GI prophylaxis -PPI - Nutrition -regular with supplements - Felix catheter -placed 09/20 because of urinary obstruction as discussed above Disposition -I would anticipate discharge home with hospice after the hospital stay. Primary care physician -Dr. Rajupt
[2019-09-26] MEDS ORDERED: Morphine 15 MG Tab.ER PO ONE (15:00)
[2019-09-26] MEDS: Lisinopril 2.5 MG Tab PO SCH (20:38)
[2019-09-26] MEDS: Metoprolol Succinate 25 MG Tab.ER PO SCH (20:39)
[2019-09-26] MEDS: Simvastatin 20 MG Tab PO SCH (20:39)
[2019-09-27] MEDS: Morphine 10 MG/0.5 ML Oral Syringe BUCCAL PRN ×8 (02:36→21:56)
[2019-09-27] MEDS: Morphine 15 MG Tab.ER PO SCH ×3 (06:00→21:57)
[2019-09-27] MEDS: Budesonide 0.5 MG/2 ML Neb Susp INH SCH ×2 (07:10→21:58)
[2019-09-27] MEDS: ANORO ELLIPTA 62.5MCG/25MCG INHALER (PTOM) INH SCH (07:11)
[2019-09-27] MEDS: Pantoprazole 40 MG Tab.CR PO SCH (07:50)
[2019-09-27] MEDS: Ondansetron 4 MG Tab.DIS PO PRN (08:59)
[2019-09-27] MEDS: Lactobacillus Rhamnosus GG (Probiotic) Cap PO SCH ×2 (09:35→21:57)
[2019-09-27] MEDS: Aspirin 81 MG Tab.EC PO SCH (09:49)
[2019-09-27] MEDS: Enoxaparin 40 MG/0.4 ML Syringe SUBCUT SCH ×2 (09:50→13:43)
[2019-09-27] MEDS: Dexamethasone 4 MG Tab PO SCH ×2 (09:50→18:51)
[2019-09-27] MEDS: Ibuprofen 600 MG Tab PO SCH ×3 (09:50→21:58)
[2019-09-27] MEDS: Gabapentin 300 MG Cap PO SCH ×2 (09:54→21:58)
--- NOTE | 2019-09-27 10:52 | PCM.PN ---
- General Info Date of Service: 09/27/19 Subjective Update: Mr. Triplett is continued to experience progressive weakness especially in his upper extremities, voice is very weak this morning. He does report that his pain control is significantly better over the last 24 hours with increased dose of morphine and also use of short acting morphine. His daughter is coming in today to meet with hospice staff when they come to see him this afternoon. - Review of Systems General: Reports: Weakness Pulmonary: Reports: No Symptoms Cardiovascular: Reports: No Symptoms Gastrointestinal: Reports: No Symptoms Musculoskeletal: Reports: Neck Pain, Back Pain - Patient Data Vitals - Most Recent: Last Vital Signs Temp 95.1 F L 09/27/19 07:46 Pulse 53 L 09/27/19 07:46 Resp 16 09/27/19 07:46 BP 106/34 L 09/27/19 07:46 Pulse Ox 97 09/27/19 07:46 Weight - Most Recent: 123 lb 14.397 oz I&O - Last 24 Hours: Intake & Output 09/26/19 09/27/19 09/27/19 22:59 06:59 14:59 Intake Total 240 Output Total 450 400 Balance -450 -160 Med Orders - Current: Current Medications Acetaminophen (Tylenol) 650 mg PO Q4H PRN PRN Reason: Pain (Mild 1-3)/fever Aspirin (Halfprin) 81 mg PO DAILY [facility] Last Admin: 09/27/19 09:49 Dose: 81 mg Budesonide (Pulmicort) 0.5 mg INH BIDRT [facility] Last Admin: 09/27/19 07:10 Dose: 0.5 mg Dexamethasone (Dexamethasone) 4 mg PO BIDMEALS [facility] Last Admin: 09/27/19 09:50 Dose: 4 mg Enoxaparin Sodium (Lovenox) 40 mg SUBCUT DAILY [facility] Last Admin: 09/27/19 09:50 Dose: 40 mg Gabapentin (Neurontin) 300 mg PO BID [facility] Last Admin: 09/27/19 09:54 Dose: 300 mg Ibuprofen (Motrin) 600 mg PO TID [facility] Last Admin: 09/27/19 09:50 Dose: 600 mg Lactobacillus Rhamnosus (Culturelle) 1 cap PO BID [facility] Last Admin: 09/27/19 09:35 Dose: 1 cap Levalbuterol HCl (Xopenex) 1.25 mg INH Q4H PRN PRN Reason: Shortness of Breath Last Admin: 09/22/19 17:38 Dose: 1.25 mg Lisinopril (Prinivil) 2.5 mg PO BEDTIME [facility] Last Admin: 09/26/19 20:38 Dose: 2.5 mg Lorazepam (Ativan) 0.5 mg IVPUSH Q4H PRN PRN Reason: Nausea/Vomiting Lorazepam (Ativan) 0.5 mg PO Q4H PRN PRN Reason: Anxiety Last Admin: 09/23/19 00:12 Dose: 0.5 mg Magnesium Hydroxide (Milk Of Magnesia) 30 ml PO Q12H PRN PRN Reason: Constipation Last Admin: 09/22/19 18:25 Dose: 30 ml Metoprolol Succinate (Toprol Xl) 25 mg PO BEDTIME [facility] Last Admin: 09/26/19 20:39 Dose: 25 mg Morphine Sulfate (Morphine 10 Mg/0.5 Ml Oral Syringe) 5 mg BUCCAL Q1H PRN PRN Reason: Pain/DYSPNEA Last Admin: 09/27/19 08:59 Dose: 5 mg Morphine Sulfate (Ms Contin) 15 mg PO Q8H [facility] Last Admin: 09/27/19 06:00 Dose: 15 mg Ondansetron HCl (Zofran Odt) 4 mg PO Q6H PRN PRN Reason: Nausea able to take PO Last Admin: 09/27/19 08:59 Dose: 4 mg Ondansetron HCl (Zofran) 4 mg IV Q6H PRN PRN Reason: Nausea/Vomiting Last Admin: 09/21/19 16:34 Dose: 4 mg Pantoprazole Sodium (Protonix) 40 mg PO ACBREAKFAST [facility] Last Admin: 09/27/19 07:50 Dose: 40 mg Anoro Ellipta 62. 5mcg/25mcg Inhaler ( Ptom) 0 each INH DAILYRT [facility] Last Admin: 09/27/19 07:11 Dose: 1 each Senna/Docusate Sodium (Senna Plus) 1 tab PO BID PRN PRN Reason: Constipation Last Admin: 09/22/19 18:25 Dose: 1 tab Simvastatin (Zocor) 20 mg PO BEDTIME [facility] Last Admin: 09/26/19 20:39 Dose: 20 mg Discontinued Medications Bisacodyl (Dulcolax) 10 mg RECTAL ONETIME ONE Stop: 09/24/19 13:01 Last Admin: 09/24/19 13:23 Dose: 10 mg [facility]iprofl[facility] ([facility] Hcl) [facility] Stop: 09/26/19 23:00 Last Admin: 09/26/19 15:57 Dose: 500 mg Dexamethasone (Dexamethasone) 8 mg PO ONETIME ONE Stop: 09/22/19 12:46 Last Admin: 09/22/19 13:54 Dose: 8 mg Gabapentin (Neurontin) 200 mg PO BID [facility] Last Admin: 09/21/19 08:47 Dose: 200 mg Sodium Chloride (Normal Saline) 1,000 mls @ 250 mls/hr IV ASDIRECTED [facility] Last Admin: 09/20/19 15:19 Dose: 250 mls/hr Ceftriaxone Sodium 1 gm/ (Sodium Chloride) 50 mls @ 100 mls/hr IV ONETIME ONE Stop: 09/20/19 15:14 Last Admin: 09/20/19 15:19 Dose: 100 mls/hr Ceftriaxone Sodium 1 gm/ (Sodium Chloride) 50 mls @ 100 mls/hr IV Q24H [facility] Stop: 09/22/19 18:00 Last Admin: 09/22/19 15:43 Dose: 100 mls/hr Potassium Chloride/Sodium Chloride (Normal Saline With 20 Meq Kcl) 1,000 mls @ 125 [facility]ls[facility] Last Admin: 09/20/19 23:48 Dose: 125 mls/hr Sodium Chloride (Normal Saline) 70 mls @ 3 mls[facility] Last Admin: 09/21/19 09:09 Dose: 3 mls/sec Iopamidol (Isovue-300 (61%)) 81 ml IV ONETIME ONE Stop: 09/21/19 09:31 Last Admin: 09/21/19 09:08 Dose: 81 ml Iopamidol (Isovue-300 (61%)) 30 ml PO ONETIME ONE Stop: 09/21/19 08:20 Last Admin: 09/21/19 09:09 Dose: 30 ml Lidocaine HCl (Xylocaine 2% Jelly) 10 ml MUCMEM ONETIME ONE Stop: 09/21/19 10:16 Last Admin: 09/21/19 10:19 Dose: 10 ml Magnesium Citrate (Citrate Of Magnesia) 296 ml PO ONETIME ONE Stop: 09/23/19 10:31 Last Admin: 09/23/19 11:17 Dose: 296 ml Morphine Sulfate (Ms Contin) 15 mg PO BEDTIME [facility] Last Admin: 09/21/19 21:29 Dose: 15 mg Morphine Sulfate (Ms Contin) 15 mg PO BID [facility] Last Admin: 09/26/19 08:39 Dose: 15 mg Morphine Sulfate (Ms Contin) 15 mg PO ONETIME ONE Stop: 09/26/19 15:01 Last Admin: 09/26/19 15:58 Dose: 15 mg Oxycodone/Acetaminophen (Percocet 325-5 Mg) 1 tab PO QID [facility] Last Admin: 09/24/19 11:55 Dose: Not Given Oxycodone/Acetaminophen (Percocet 325-5 Mg) 1 tab PO Q4H PRN PRN Reason: Pain (moderate 4-6) Last Admin: 09/25/19 23:39 Dose: 1 tab - Exam Quality Assessment: DVT Prophylaxis General: Alert, Oriented, Cooperative, Mild Distress Lungs: Clear to Auscultation, Normal Respiratory Effort Cardiovascular: Regular Rate, Regular Rhythm, No Murmurs GI/Abdominal Exam: Soft, Non-Tender, No Organomegaly, No Distention Extremities: Non-Tender, No Pedal Edema Sepsis Event Note - Evaluation Sepsis Screening Result: No Definite Risk - Focused Exam Vital Signs: Vital Signs Temp Pulse Resp BP Pulse Ox 09/27/19 07:46 95.1 F L 53 L 16 106/34 L 97 09/27/19 07:11 60 09/26/19 22:51 63 16 145/42 H 90 L Date Exam was Performed: 09/27/19 Time Exam was Performed: 10:49 - Problem List Review Problem List Initiated/Reviewed/Updated: Yes - My Orders Last 24 Hours: My Active Orders 09/26/19 10:41 Morphine [Morphine 10 MG/0.5 ML Oral Syringe] 5 mg BUCCAL Q1H PRN 09/26/19 22:00 Morphine [MS Contin] 15 mg PO Q8H - Plan Plan:: ASSESSMENT AND PLAN - Complicated urinary tract infection-is completed his course of antibiotic therapy as of last night Suspected metastatic prostate cancer-PSA level greater than 100 and prostate is enlarged on the CT scan causing obstruction. Diffuse skeletal metastases were noted. Prognosis is poor. Plan is for discharged home with hospice care -Ms. Contin 15 mg p.o. every 8 hours -Morphine 5 mg p.o. 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 He is a poor surgical candidate with his advanced cancer and COPD. He is on dexamethasone and seems to be moving a little better but still extremely weak and unable to bear any weight. -Continue twice daily dexamethasone -Pain control Right upper lung nodule-spiculated and has the appearance of malignancy. 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 Oxygenation stable with usual amount of home O2. -Supplement oxygen -Continue home medications Coronary artery disease-no active symptoms. -Continue home medications Maintenance issues - - DVT prophylaxis -enoxaparin - GI prophylaxis -PPI - Nutrition -regular with supplements - Felix catheter -placed 09/20 because of urinary obstruction as discussed above Disposition -I would anticipate discharge home with hospice tomorrow Primary care physician -Dr. Rajput
[2019-09-27 10:58] VITALS: BP 114/36
[2019-09-27] MEDS: Levalbuterol HCl 1.25 MG/3 ML Neb INH PRN (11:06)
[2019-09-27] MEDS: LORazepam ORAL Concentrate 1MG/0.5ML U/D BUCCAL PRN ×3 (15:56→23:37)
[2019-09-27] MEDS: Metoprolol Succinate 25 MG Tab.ER PO SCH (21:58)
[2019-09-27] MEDS: Lisinopril 2.5 MG Tab PO SCH (21:58)
[2019-09-27] MEDS: Simvastatin 20 MG Tab PO SCH (21:59)
[2019-09-27] MEDS: Morphine 10 MG/0.5 ML Oral Syringe PO PRN (23:26)
[2019-09-27] MEDS ORDERED: HYDROmorphone 1 MG/ML Syringe IVPUSH PRN (23:58)
[2019-09-28] MEDS: Morphine 10 MG/0.5 ML Oral Syringe PO PRN ×8 (00:20→11:25)
[2019-09-28] MEDS ORDERED: Morphine 10 MG/0.5 ML Oral Syringe PO PRN ×3 (01:06→02:00)
[2019-09-28] MEDS: LORazepam ORAL Concentrate 1MG/0.5ML U/D BUCCAL PRN ×3 (01:40→07:51)
[2019-09-28] MEDS: Morphine 15 MG Tab.ER PO SCH (05:15)
[2019-09-28] MEDS: Budesonide 0.5 MG/2 ML Neb Susp INH SCH (07:18)
[2019-09-28] MEDS: ANORO ELLIPTA 62.5MCG/25MCG INHALER (PTOM) INH SCH (07:25)
[2019-09-28] MEDS: Lactobacillus Rhamnosus GG (Probiotic) Cap PO SCH (08:28)
[2019-09-28] MEDS: Aspirin 81 MG Tab.EC PO SCH (08:28)
[2019-09-28] MEDS: Dexamethasone 4 MG Tab PO SCH (08:28)
[2019-09-28] MEDS: Pantoprazole 40 MG Tab.CR PO SCH (08:28)
[2019-09-28] MEDS: Ibuprofen 600 MG Tab PO SCH (08:29)
[2019-09-28] MEDS: Gabapentin 300 MG Cap PO SCH (08:29)
[2019-09-28] MEDS: Enoxaparin 40 MG/0.4 ML Syringe SUBCUT SCH (08:29)
[2019-09-28 08:55] VITALS: PULSE 62
--- NOTE | 2019-09-28 09:51 | PCM.DCSUM1 ---
Discharge Summary - Hospital Course Brief History: Mr. Triplett is a 74-year-old gentleman who was admitted through the emergency department with progressive weakness neck and back pain secondary to metastatic prostate carcinoma. - Discharge Data Discharge Date: 09/28/19 Discharge Disposition: DC/Tfer to Hospice - Home 50 Condition: Poor - Referral to Home Health Primary Care Physician: PCP None - Discharge Diagnosis/Problem(s) (1) Stenosis of cervical spine with myelopathy SNOMED Code(s): 09576576 ICD Code: M48.02 - SPINAL STENOSIS, CERVICAL REGION; G99.2 - MYELOPATHY IN DISEASES CLASSIFIED ELSEWHERE Status: Acute Current Visit: Yes (2) UTI (urinary tract infection) SNOMED Code(s): 30664282 ICD Code: N39.0 - URINARY TRACT INFECTION, SITE NOT SPECIFIED Status: Acute Current Visit: Yes Qualifiers: Urinary tract infection type: site unspecified Hematuria presence: without hematuria Qualified Code(s): N39.0 - Urinary tract infection, site not specified (3) Weakness generalized SNOMED Code(s): 69500418 ICD Code: R53.1 - WEAKNESS Status: Acute Current Visit: Yes (4) Prostate cancer metastatic to bone SNOMED Code(s): 608272233 ICD Code: C61 - MALIGNANT NEOPLASM OF PROSTATE; C79.51 - SECONDARY MALIGNANT NEOPLASM OF BONE Status: Suspected Current Visit: Yes (5) Lower urinary tract obstruction SNOMED Code(s): 72089416 ICD Code: N13.9 - OBSTRUCTIVE AND REFLUX UROPATHY, UNSPECIFIED Status: Acute Current Visit: Yes (6) Anxiety SNOMED Code(s): 84400388 ICD Code: F41.9 - ANXIETY DISORDER, UNSPECIFIED Status: Acute Current Visit: No (7) COPD (chronic obstructive pulmonary disease) SNOMED Code(s): 41645514 ICD Code: J44.9 - CHRONIC OBSTRUCTIVE PULMONARY DISEASE, UNSPECIFIED Status : Chronic Current Visit: Yes Qualifiers: COPD type: emphysema Emphysema type: unspecified Qualified Code(s): J43.9 - Emphysema, unspecified - Patient Summary/Data Consults: Consultations 09/21/19 07:00 PT Evaluation and Treatment [CONS] Routine Please Evaluate and Treat. PT Reason for Consult: Strengthening This query below is only for informational purposes and is not editable. Hospital Course: Mr. Triplett presented to the emergency room by ambulance at the urging of his home health care nurse. He has been getting more and more weak over the past several days to the point that he could not get off the couch and was not able to stand up. He has not been eating well but says he has been drinking fluids okay. His main concern is his neck and right shoulder pain. He reports progression of the achy pain over the past several weeks. He was recently started on oxycodone and this seems to be helping the pain. He did have a CT scan of the neck which showed significant arthritis and degenerative disc disease but also noted lesions that were concerning for metastatic disease. He has not had any fevers or chills but has occasional episodes of sweating. He does not have night sweats. He has lost close to 10 pounds in the last couple of months. His appetite has been decreased and he is only able to eat small amounts at one time. He does report dyspnea but thinks it sat close to his baseline. He is oxygen dependent. No bowel movement in several days. No change in bladder habits that he is aware of. Work-up in the emergency room was suggestive of a urinary tract infection. He has mild hypokalemia. He is too weak to bear any weight and will be admitted for further management because he is not safe for outpatient treatment. On admission he was given IV fluids for hydration and also started on a more aggressive pain regimen. During the course of hospitalization he lost significant function and at the time of discharge was unable to really use his arms or move his right leg. This was felt secondary to aggressive cervical spine involvement of his metastatic prostate cancer. He was treated with antibiotic therapy for his underlying urinary tract infection and completed the course of antibiotics while hospitalized. Was found to have grown from the urine sensitive to the antibiotics used for treatment. Further discussion was held with the patient during hospitalization and he decided to proceed with comfort cares only and hospice admission after discharge. He was aggressively managed for pain with MS Contin as well as liquid oral morphine and liquid lorazepam as needed for anxiety. He and family did meet with hospice staff and requested discharged home with hospice care. We will be as tolerated and he will resume his usual diet as tolerated. He will be admitted to hospice care after discharge from the hospital. - Patient Instructions Diet: Usual Diet as Tolerated Activity: As Tolerated Other/Special Instructions: Hospice admission after discharge from the hospital - Discharge Plan *PRESCRIPTION DRUG MONITORING PROGRAM REVIEWED*: Not Applicable *COPY OF PRESCRIPTION DRUG MONITORING REPORT IN PATIENT SHERIDAN: Not Applicable Prescriptions/Med Rec: LORazepam [Ativan ORAL Concentrate 1MG/0.5 ML U/D] 0.5 mg BUCCAL Q2H PRN #30 ml PRN Reason: Anxiety Morphine [MS Contin] 30 mg PO Q8H #90 tab.er Home Medications: Home Meds Budesonide [Pulmicort] 0.5 mg INH BID 03/23/19 [History] levalbuterol HCL [Xopenex] 1.25 mg INH Q4H PRN 03/23/19 [History] Umeclidinium Brm/Vilanterol Tr [Anoro Ellipta 62.5-25 MCG] 1 puff INH DAILY [History] lisinopriL [Lisinopril] 2.5 mg PO BEDTIME 09/20/19 [History] LORazepam [Ativan ORAL Concentrate 1MG/0.5 ML U/D] 0.5 mg BUCCAL Q2H PRN #30 ml 09/28/19 [Rx] Morphine [MS Contin] 30 mg PO Q8H #90 tab.er 09/28/19 [Rx] Referrals: Casey Rajput MD [Physician] - - Discharge Summary/Plan Comment DC Time >30 min.: No - Patient Data Vitals - Most Recent: Last Vital Signs Temp 94.4 F L 09/27/19 10:57 Pulse 62 09/28/19 07:21 Resp 18 09/27/19 10:57 BP 114/36 L 09/27/19 10:57 Pulse Ox 86 L 09/28/19 07:21 Weight - Most Recent: 123 lb 14.397 oz I&O - Last 24 hours: Intake & Output 09/27/19 09/28/19 09/28/19 22:59 06:59 14:59 Output Total 150 350 Balance -150 -350 Med Orders - Current: Current Medications Acetaminophen (Tylenol) 650 mg PO Q4H PRN PRN Reason: Pain (Mild 1-3)/fever Aspirin (Halfprin) 81 mg PO DAILY [facility] Last Admin: 09/28/19 08:28 Dose: Not Given Budesonide (Pulmicort) 0.5 mg INH BIDRT [facility] Last Admin: 09/28/19 07:18 Dose: 0.5 mg Dexamethasone (Dexamethasone) 4 mg PO BIDMEALS [facility] Last Admin: 09/28/19 08:28 Dose: Not Given Enoxaparin Sodium (Lovenox) 40 mg SUBCUT DAILY [facility] [place] Last Admin: 09/28/19 08:29 Dose: Not Given Gabapentin (Neurontin) 300 mg PO BID [facility] [place] Last Admin: 09/28/19 08:29 Dose: Not Given Hydromorphone HCl (Dilaudid) 1 mg IVPUSH Q2H PRN PRN Reason: Pain Last Admin: 09/28/19 00:04 Dose: 1 mg Ibuprofen (Motrin) 600 mg PO TID [facility] Last Admin: 09/28/19 08:29 Dose: Not Given Lactobacillus Rhamnosus (Culturelle) 1 cap PO BID [facility] [place] Last Admin: 09/28/19 08:28 Dose: Not Given Levalbuterol HCl (Xopenex) 1.25 mg INH Q4H PRN PRN Reason: Shortness of Breath Last Admin: 09/27/19 11:06 Dose: 1.25 mg Lisinopril (Prinivil) 2.5 mg PO BEDTIME [facility] [place] Last Admin: 09/27/19 21:58 Dose: Not Given Lorazepam (Ativan) 0.5 mg IVPUSH Q4H PRN PRN Reason: Nausea/Vomiting Lorazepam (Ativan Oral Concentrate 1mg/0.5 Ml U/D) 0.5 mg BUCCAL Q2H PRN PRN Reason: Anxiety Last Admin: 09/28/19 07:51 Dose: 0.5 mg Magnesium Hydroxide (Milk Of Magnesia) 30 ml PO Q12H PRN PRN Reason: Constipation Last Admin: 09/22/19 18:25 Dose: 30 ml Metoprolol Succinate (Toprol Xl) 25 mg PO BEDTIME [facility] [place] Last Admin: 09/27/19 21:58 Dose: Not Given Morphine Sulfate (Ms Contin) 15 mg PO Q8H [facility] [place] Last Admin: 09/28/19 05:15 Dose: Not Given Morphine Sulfate (Morphine 10 Mg/0.5 Ml Oral Syringe) 10 mg PO Q30M PRN PRN Reason: Pain Last Admin: 09/28/19 07:51 Dose: 10 mg Ondansetron HCl (Zofran Odt) 4 mg PO Q6H PRN PRN Reason: Nausea able to take PO Last Admin: 09/27/19 08:59 Dose: 4 mg Ondansetron HCl (Zofran) 4 mg IV Q6H PRN PRN Reason: Nausea/Vomiting Last Admin: 09/21/19 16:34 Dose: 4 mg Pantoprazole Sodium (Protonix) 40 mg PO ACBREAKFAST [facility] [place] Last Admin: 09/28/19 08:28 Dose: Not Given Anoro Ellipta 62. 5mcg/25mcg Inhaler ( Ptom) 0 each INH DAILYRT [facility] Last Admin: 09/28/19 07:25 Dose: Not Given Senna/Docusate Sodium (Senna Plus) 1 tab PO BID PRN PRN Reason: Constipation Last Admin: 09/22/19 18:25 Dose: 1 tab Simvastatin (Zocor) 20 mg PO BEDTIME [facility] [place] Last Admin: 09/27/19 21:59 Dose: Not Given Discontinued Medications Bisacodyl (Dulcolax) 10 mg RECTAL ONETIME ONE Stop: 09/24/19 13:01 Last Admin: 09/24/19 13:23 Dose: 10 mg Ciprofloxacin (Ciprofloxacin Hcl) 500 mg PO BIDAC [facility] Stop: 09/26/19 23:00 Last Admin: 09/26/19 15:57 Dose: 500 mg Dexamethasone (Dexamethasone) 8 mg PO ONETIME ONE Stop: 09/22/19 12:46 Last Admin: 09/22/19 13:54 Dose: 8 mg Gabapentin (Neurontin) 200 mg PO BID [facility] [place] Last Admin: 09/21/19 08:47 Dose: 200 mg Sodium Chloride (Normal Saline) 1,000 mls @ 250 mls/hr IV ASDIRECTED [facility] [place] Last Admin: 09/20/19 15:19 Dose: 250 mls/hr Ceftriaxone Sodium 1 gm/ (Sodium Chloride) 50 mls @ 100 mls/hr IV ONETIME ONE Stop: 09/20/19 15:14 Last Admin: 09/20/19 15:19 Dose: 100 mls/hr Ceftriaxone Sodium 1 gm/ (Sodium Chloride) 50 mls @ 100 mls/hr IV Q24H [facility] [place] Stop: 09/22/19 18:00 Last Admin: 09/22/19 15:43 Dose: 100 mls/hr Potassium Chloride/Sodium Chloride (Normal Saline With 20 Meq Kcl) 1,000 mls @ 125 mls/hr IV ASDIRECTED [facility] [place] Last Admin: 09/20/19 23:48 Dose: 125 mls/hr Sodium Chloride (Normal Saline) 70 mls @ 3 mls/sec IV ASDIRECTED [facility] [place] Last Admin: 09/21/19 09:09 Dose: 3 mls/sec Iopamidol (Isovue-300 (61%)) 81 ml IV ONETIME ONE Stop: 09/21/19 09:31 Last Admin: 09/21/19 09:08 Dose: 81 ml Iopamidol (Isovue-300 (61%)) 30 ml PO ONETIME ONE Stop: 09/21/19 08:20 Last Admin: 09/21/19 09:09 Dose: 30 ml Lidocaine HCl (Xylocaine 2% Jelly) 10 ml MUCMEM ONETIME ONE Stop: 09/21/19 10:16 Last Admin: 09/21/19 10:19 Dose: 10 ml Lorazepam (Ativan) 0.5 mg PO Q4H PRN PRN Reason: Anxiety Last Admin: 09/23/19 00:12 Dose: 0.5 mg Magnesium Citrate (Citrate Of Magnesia) 296 ml PO ONETIME ONE Stop: 09/23/19 10:31 Last Admin: 09/23/19 11:17 Dose: 296 ml Morphine Sulfate (Ms Contin) 15 mg PO BEDTIME [facility] Last Admin: 09/21/19 21:29 Dose: 15 mg Morphine Sulfate (Ms Contin) 15 mg PO BID [facility] Last Admin: 09/26/19 08:39 Dose: 15 mg Morphine Sulfate (Morphine 10 Mg/0.5 Ml Oral Syringe) 5 mg BUCCAL Q1H PRN PRN Reason: Pain/DYSPNEA Last Admin: 09/27/19 21:56 Dose: 5 mg Morphine Sulfate (Ms Contin) 15 mg PO ONETIME ONE Stop: 09/26/19 15:01 Last Admin: 09/26/19 15:58 Dose: 15 mg Morphine Sulfate (Morphine 10 Mg/0.5 Ml Oral Syringe) 10 mg PO Q1H PRN PRN Reason: Pain Last Admin: 09/28/19 00:20 Dose: 10 mg Morphine Sulfate (Morphine 10 Mg/0.5 Ml Oral Syringe) 20 mg PO Q30M PRN PRN Reason: Pain Morphine Sulfate (Morphine 10 Mg/0.5 Ml Oral Syringe) 10 mg PO Q30M PRN PRN Reason: Pain Oxycodone/Acetaminophen (Percocet 325-5 Mg) 1 tab PO QID [facility] Last Admin: 09/24/19 11:55 Dose: Not Given Oxycodone/Acetaminophen (Percocet 325-5 Mg) 1 tab PO Q4H PRN PRN Reason: Pain (moderate 4-6) Last Admin: 09/25/19 23:39 Dose: 1 tab - Exam Quality Assessment: Reports: Urine Catheter General: Reports: Moderate Distress, Lethargic Lungs: Reports: Clear to Auscultation, Normal Respiratory Effort Cardiovascular: Reports: Regular Rate, Regular Rhythm, No Murmurs GI/Abdominal Exam: Soft, Non-Tender, No Organomegaly, No Distention
== END 2019-09-28 11:52 | disposition hospice, home (50) | DRG 543 ==
LOC: JP.ED 12:49 → JP.MS 15:05
PROVIDERS: ADMIT Internal Medicine; ATTEND Hospitalist
DX: C79.51 Secondary malignant neoplasm of bone (principal); N39.0 Urinary tract infection, site not specified; R53.1 Weakness; G89.29 Other chronic pain; M54.6 Pain in thoracic spine; H54.7 Unspecified visual loss; G99.2 Myelopathy in diseases classified elsewhere; C61 Malignant neoplasm of prostate; M48.02 Spinal stenosis, cervical region; N13.9 Obstructive and reflux uropathy, unspecified; M19.90 Unspecified osteoarthritis, unspecified site; N42.9 Disorder of prostate, unspecified; Z66 Do not resuscitate; Z51.5 Encounter for palliative care; Z79.51 Long term (current) use of inhaled steroids; B96.1 Klebsiella pneumoniae [K. pneumoniae] as the cause of diseases classified elsewhere; F41.9 Anxiety disorder, unspecified; J43.9 Emphysema, unspecified; E87.6 Hypokalemia; I25.10 Atherosclerotic heart disease of native coronary artery without angina pectoris; E78.00 Pure hypercholesterolemia, unspecified; K21.9 Gastro-esophageal reflux disease without esophagitis; Z79.82 Long term (current) use of aspirin; Z79.899 Other long term (current) drug therapy; Z95.5 Presence of coronary angioplasty implant and graft; Z87.891 Personal history of nicotine dependence
CPT/HCPCS: 36415; 51702; 71046; 71260; 74177; 80048; 80053; 81001; 85025; 85027; 87086; 87088; 87186; 94640; 97110-GP; 97162-GP; 97530-GP; 99284; 99285-25; A9270-GY; G0103; J0696; J1170; J1650; J2405; J3480; J7030; J7050; J7612-GY; J8540; Q9967